=== PATIENT | female | born 2000 | race Caucasian/White ===

== ENCOUNTER 2023-09-19 18:04 | Emergency (ER) | payer BC, SELFPAY ==
[2023-09-19 18:28] VITALS: BP 130/73; PULSE 61; RESP 18; TEMP 36.7; O2SAT 96; BMI 44.8
--- NOTE | 2023-09-19 21:04 | ED.GENADULT ---
HPI - General Adult General Chief complaint: Ear Problems Stated complaint: Ear and Jaw Pain Time Seen by Provider: 09/19/23 20:54 Source: patient, RN notes reviewed and old records reviewed Mode of arrival: ambulatory Limitations: no limitations History of Present Illness HPI narrative: 23 year old female presents for right sided jaw and ear pain. She reports the pain began 2 months ago and would last an hour, and has been on and off since, but is now more severe and lasts up to 4 hours. She states when the pain occurs, she is unable to touch the right side of her face or perform neck ROM without severe pain. She describes the pain as burning and sharp. She reports a history of jaw cracking and pain with opening the mouth wide. 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 She states the pain initially began after cracking her jaw, but has since been occurring more frequently and sporadically. She denies erythema, edema, warmth, fever, or hearing problems. She denies any worsening of pain with chewing or eating. Related Data Previous Rx's Medication Instructions Recorded cyclobenzaprine 5 mg tablet 5 mg PO TID PRN muscle spasm #15 09/19/23 tabs naproxen 250 mg tablet 250 mg PO BID #30 tabs 09/19/23 tramadol 50 mg tablet 50 mg PO TID PRN severe pain 09/19/23 (scale score 7-10) #12 tabs Allergies Allergy/AdvReac Type Severity Reaction Status Date / Time No Known Allergies Allergy Unverified 07/30/20 17:21 Review of Systems Constitutional: Constitutional: Denies chills, Denies fever(s) and Denies headache(s) Eyes: Eyes: Denies change in vision ENT: Reports Normal hearing present, Denies dizziness, Denies ear discharge, Reports otalgia (right sided), Reports facial pain (right sided), Denies headache(s) and Reports other (right sided jaw pain, crepitus) Cardiovascular: Cardiovascular: Denies chest pain Integumentary/Breasts: Skin/Breast: Denies rash Neurologic: Reports Normal hearing present, Denies dizziness and Denies headache(s) PMF Social History Social History Advance Directives: No Advance Directives Information Provided: Yes Physical Exam ED Vital Signs: Vital Signs - 24 hr 09/19/23 18:28 Temperature 98.1 F Pulse Rate 61 Respiratory Rate 18 Blood Pressure 130/73 Pulse Oximetry 96 Oxygen Delivery Method Room Air BMI result Body Mass Index 44.8 Const General: healthy appearing and no acute distress Orientation/consciousness: patient oriented x3 Limitations: no limitations HENMT Other: Full range of motion of the mandible. There is a clunking felt with active range of motion bilaterally at the TMJ Head: Yes normocephalic and Yes atraumatic Ears: hearing grossly normal bilaterally, external ears normal, TM's normal bilaterally, EAC's normal and mastoids normal Face and sinus: Yes sinuses nontender, No erythema and No edema Mouth: Normal oral and palatal mucosa present Teeth and gingiva: dentition normal Throat: Yes posterior oropharynx normal Eyes Conjunctivae: conjunctivae normal Sclerae: sclerae normal Corneas: corneas normal Pupils: Equal, round and reactive pupils present Skin General skin exam: no rashes or lesions noted and elasticity normal Neuro General: patient oriented x3 Cranial nerves: Yes Equal, round and reactive pupils present and Yes Normal hearing present Medical Decision Making Medical Decision Making [facility] Narrative: [age] year female presents for evaluation of right facial pain. Her history is classic for TMJ dysfunction. Currently she is asymptomatic. I discussed avoiding triggers with her. We will discharge the patient with naproxen and cyclobenzaprine for her discomfort and I will also give her a short course of tramadol for severe or breakthrough pain. She reports that she called her PCP but will not be able to follow-up for 2 months. Differential Diagnosis Differential Diagnoses: The differential diagnosis associated with the presentation includes temporomandibular joint disorder otitis media tension headache dental infection mastoiditis Tests considered The following testing was considered but not selected: Considered CT of facial bones, however the patient's history exam is quite classic of TMJ dysfunction Discharge Plan Discharge Clinical Impression: TMJ dysfunction Patient Disposition: Home, Self-Care Instructions: Temporomandibular Disorder (ED) Additional Instructions: Take naproxen twice daily for 10 days Use cyclobenzaprine as needed for muscle spasms Use tramadol for more severe, breakthrough pain This may make you sleepy, did not drink alcohol or drive after taking it Follow-up with your primary doctor as discussed Return for new or worsening symptoms Prescriptions: New naproxen 250 mg tablet 250 mg PO BID Qty: 30 0RF cyclobenzaprine 5 mg tablet 5 mg PO TID PRN (Reason: muscle spasm) Qty: 15 0RF tramadol 50 mg tablet 50 mg PO TID PRN (Reason: severe pain (scale score 7-10)) Qty: 12 0RF
[2023-09-19 21:49] VITALS: BP 150/94; PULSE 72; RESP 18; O2SAT 98
== END 2023-09-19 21:51 | disposition home or self-care (01) ==
PROVIDERS: Emergency Provider Internal Medicine
DX: M26.69 Other specified disorders of temporomandibular joint (principal)
CPT/HCPCS: 99283; 99284

== ENCOUNTER 2024-02-16 11:04 | Outpatient (AMB) | payer BC, SELFPAY ==
--- NOTE | 2024-02-16 11:07 | MHC.PC.OV ---
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 No Known Home Meds Tobacco use date assessed: 02/16/24 Dental Screening Did you have a dental visit in the last 12 months?: No Did you have a dental problem in the last 6 months where you did not have access to dental care?: Yes Was dental information given to patient?: No HPI HPI Comments History of Present Illness Details 24-year-old female with obesity, MDD, ANTONELLA, IBS, TMJ R Here today to [facility] care No medical records No medical care since pediatrics ([facility]). Has never had a pap yet; not sexually active at this time. Chronic ingrown toe nails present for years, affects bilat great toe nails. Has never had any treatment. Lots of pain Became ill during mission trip in [place] 2015, since this time, when she gets sick she reports her sx are worse then before. Extreme sore throat. Lots of travel. Went to [place] for 3 months 03/2023 & was sick for 1 month. Dx with tonsillitis. Gets tonsil stones. States tonsils are chronically red and swollen. She is a isaac so has worries about this. Would like to see a counselor. Has MDD. Wonders about OCD and ADD like sx. HAs lots of GI issues, reports entire life. 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 when returned to school, took 20 min BR breaks. Did see GI in the past around 2017-. Tried some meds. Made her worse or didnt work. Tried gluten free, no relief. Did not try dairy free as she keeps a food diary and does not note any correlation. Reports negative chrons and colitis work up. Dx with IBS. 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 Describes abd pain as labor pains, comes and goes. Has some relief w/ bowel movements. Feels it takes a long time to evacuate completely. Known Cat allergy, wants referral for allergy testing. Worried she has narcolepsy. Has to stimulate self to stay awake by pinching self. Writing bible versus. Right jaw/ear pain in the past; referred to dentist and given naproxen. Doesnt have dental insurance. Went to ED for this pain, DX with TMJ. Given more naproxen, tramadol and cyclobenzaprine. 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 [facility] History (Updated 02/16/24 @ 13:15 by Elvira Mays CMA) H/O oral surgery Family History (Updated 02/16/24 @ 13:22 by Elvira Mays CMA) Mother Mental disorder HTN (hypertension) Diabetes Thyroid disorder Psychiatric disorder Father Asthma Maternal Grandfather HTN (hypertension) Diabetes Other Substance abuse Social History Housing: House Housing Other:: duplex Patient Tobacco Use Status: Current someday Tobacco user Years Smoked: Less then a year, smokes occasionally Second Hand Smoke Exposure: No Substance Use Type: Marijuana service: No Current occupational status: employed Current occupation: [employer] Current occupational exposures/hazards: No Cognitive needs: No Hearing needs: No Vision needs: No Questionnaire PHQ-9 Over the last 2 weeks, how often have you been bothered by any of the following problems? 1. Little interest or pleasure in doing things: several days 2. Feeling down, depressed, or hopeless: several days 3. Trouble falling or staying asleep, or sleeping too much: several days 4. Feeling tired or having little energy: more than half the days 5. Poor appetite or overeating: more than half the days 6. Feeling bad about yourself - or that you are a failure or have let yourself or your family down: several days 7. Trouble concentrating on things, such as reading the newspaper or watching television: not at all 8. Moving or speaking so slowly that other people could have noticed. Or the opposite - being so fidgety or restless that you have been moving around a lot more than usual: not at all 9. Thoughts that you would be better off or of hurting yourself in some way: several days Total score: 9 Depression Screening Interpretation: Positive Depression Screening Follow-up: Existing condition and Community Mental Health Worker F/U Depression Screening Done: Yes 39489 - PHQ-9 Billing: Yes Source: Developed by Drs. Yahir Rico, Zenobia Nicholson, Reed Soria and colleagues, with an educational leonard from [employer]. Thrive Questionnaire Date Thrive assessed: 02/16/24 I am a: Parent/Caregiver What is your living situation today?: I have a place to live, but I am worried about losing it in the future Within the past 12 months, did the food you bought not last and you didn't have the money to get more?: Never true Within the past 12 months, did you worry whether your food would run out before you got money to buy more?: Never true Do you have trouble paying for medicines?: No Do you have trouble getting transportation to medical appointments?: No Do you have trouble paying your heating and electricity bill?: No Do you have trouble taking care of your child, family member or friend?: No Do you have trouble with day-to-day activities such as bathing, preparing meals, shopping, managing finances, etc.?: No Are you currently unemployed and looking for a job?: No Are you interested in more education?: Yes Please select the resources that you would like help with: Housing/Mcc Currently or been in a relationship where the following occur: no concerns reported THRIVE Score: 1 AUDIT C Alcohol Use Questionnaire (AUDIT-C) 1. How often do you have a drink containing alcohol?: Monthly or less 2. How many drinks containing alcohol do you have on a typical day when you are drinking?: 3 or 4 3. How often do you have six or more drinks on one occasion?: Less than monthly Total Score: 3 Score Reviewed/Action Taken: Yes ANTONELLA-7 AMB Questionnaire ANTONELLA-7 Date ANTONELLA - 7 assessed: 02/16/24 Feeling nervous, anxious, or on edge: 3 = Nearly every day Not being able to stop or control worryin = Nearly every day Worrying too much about different things: 3 = Nearly every day Trouble relaxin = Several days Being so restless that it is hard to sit still: 0 = Not at all Becoming easily annoyed or irritable: 1 = Several days Feeling afraid as if something awful might happen: 1 = Several days Total ANTONELLA-7 score (0-4 normal; 5-9 mild; 10-14 moderate; 15-21 severe): 12 Source: Developed by Drs. Yahir Rico, Zenobia Nicholson, Reed Soria and colleagues, with an educational leonard from [employer]. ANTONELLA-7 Assessment Billing ANTONELLA-7 Assessment Tool: ANTONELLA-7 Assessment [id number] Review of Systems Const All systems reviewed & are unremarkable except as noted in HPI and below Physical exam (Primary Care) Vital Signs: Last Vital Signs Temp 97.2 F 02/16/24 11:16 Pulse 65 02/16/24 11:16 Resp 16 02/16/24 11:16 BP 122/78 02/16/24 11:16 Pulse Ox 97 02/16/24 11:16 Oxygen Delivery Method Room Air 02/16/24 11:16 BMI result Body Mass Index 46.4 BMI Assessment/Plan discussion: High BMI High, discussed plan: lifestyle Tobacco/Smoking Status: Tobacco use Status Tobacco use date assessed 02/16/24 02/16/24 11:15 Patient Tobacco Use Status Current someday Tobacco 02/16/24 11:15 Are you ready to quit: No Tobacco cessation counseling provided: Yes Items discussed: Other Relapse Prevention: discussed the importance of a supportive environment, discussed extending NRT, discussed negative mood or depression after quitting, weight gain after smoking is common and discussed dietary, exercise and/or lifestyle changes Number of minutes spent counselin CPT code: Less than 3 minutes PHQ-9: PHQ-9 Score PHQ-9: Total score 9 02/16/24 13:09 Depression Screening Interpretation: Positive Depression Screening Follow-up: Existing condition and Community Mental Health Worker F/U Thrive Assessment: Date of Thrive Assessment Date Thrive assessed 02/16/24 02/16/24 13:09 Currently or been in a relationship where the following occur: no concerns reported Const Other: awake alert NAD PERRLA, EOMI TM intact and clear bilat + displacement of R TMJ w/ jaw opening No trigeminal pain w/ palpation Tonsils grade 1 + uvula midline, manages secretions RRR LS CTAB Abd soft, nontender, normoactive bs x 4 Bilat great toe nails ingrown w/o infection Assessment and Plan Assessment & Plan (1) Cervical cancer screening: Comment: Refer to bindery supervisor for 1st Pap smear and Women's [facility]. Code(s): Z12.4 - Encounter for screening for malignant neoplasm of cervix (2) MDD (major depressive disorder), recurrent episode: Comment: Not currently on medications. Referred to counseling. Code(s): F33.9 - Major depressive disorder, recurrent, unspecified Qualifiers: Major depression episode severity: mild Qualified Code(s): F33.0 - Major depressive disorder, recurrent, mild (3) IBS (irritable bowel syndrome): Comment: Was on medications in the past. Has no idea what they were. She signed a release of information today from her director of outpatient services. Once her records received and unable to review we will talk about treatment. Do not think she needs to see GI at this point. Code(s): K58.9 - Irritable bowel syndrome without diarrhea Qualifiers: Irritable bowel syndrome type: with both diarrhea and constipation Qualified Code(s): K58.2 - Mixed irritable bowel syndrome (4) Allergies: Comment: Known allergy to cats. Wonders if she has other allergies. Requested referral for allergy testing. This referral was placed today. Made aware that she can not have allergy testing done while on an antihistamine. Code(s): T78.40XA - Allergy, unspecified, initial encounter Qualifiers: Encounter type: initial encounter Qualified Code(s): T78.40XA - Allergy, unspecified, initial encounter (5) Persistent disorder of initiating or maintaining wakefulness: Comment: Refer to sleep Medicine for evaluation of treatment of her complaints. Code(s): G47.10 - Hypersomnia, unspecified (6) TMJ arthralgia: Comment: Effect in the right side. Refer to ENT for evaluation and treatment. New rX for baclofen 10mg po BID PRN for pain and Diclofenac ER 50mg BID PRN pain sent to pharmacy. Code(s): M26.629 - Arthralgia of temporomandibular joint, unspecified side Qualifiers: Laterality: right Qualified Code(s): M26.621 - Arthralgia of right temporomandibular joint (7) Morbidly obese: Comment: BMI greater than 46 with major depressive disorder and generalized anxiety disorder. Code(s): E66.01 - Morbid (severe) obesity due to excess calories (8) IGTN (ingrowing toe nail): Comment: Refer to podiatry for evaluation and treatment. Code(s): L60.0 - Ingrowing nail (9) Encounter for screening involving social determinants of health (SDoH): Code(s): Z13.9 - Encounter for screening, unspecified (10) Marijuana use: Code(s): F12.90 - Cannabis use, unspecified, uncomplicated Plan This note is constructed using voice recognition software. While every effort has been made to ensure accuracy in paver installer, still errors may have been included Sometimes, these errors may affect the content or meaning of the given sentence . Total time spent caring for the patient today was 75 minutes. This includes time spent before the visit reviewing the chart, time spent during the visit, and time spent after the visit on documentation Orders: Orders Vitamin D 1,25 dihydroxy Today E66.01 - Morbid (severe) obesity due to excess calories, F33.9 - Major depressive disorder, recurrent, unspecified, G47.10 - Hypersomnia, unspecified, K58.2 - Mixed irritable bowel syndrome, M26.621 - Arthralgia of right temporomandibular joint, T78.40XA - Allergy, unspecified, initial encounter Comprehensive [place]. Panel Fast Today E66.01 - Morbid (severe) obesity due to excess calories, F33.9 - Major depressive disorder, recurrent, unspecified, G47.10 - Hypersomnia, unspecified, K58.2 - Mixed irritable bowel syndrome, M26.621 - Arthralgia of right temporomandibular joint, T78.40XA - Allergy, unspecified, initial encounter Lipid Panel Today E66.01 - Morbid (severe) obesity due to excess calories, F33.9 - Major depressive disorder, recurrent, unspecified, G47.10 - Hypersomnia, unspecified, K58.2 - Mixed irritable bowel syndrome, M26.621 - Arthralgia of right temporomandibular joint, T78.40XA - Allergy, unspecified, initial encounter Vitamin B12 and Folate Today E66.01 - Morbid (severe) obesity due to excess calories, F33.9 - Major depressive disorder, recurrent, unspecified, G47.10 - Hypersomnia, unspecified, K58.2 - Mixed irritable bowel syndrome, M26.621 - Arthralgia of right temporomandibular joint, T78.40XA - Allergy, unspecified, initial encounter IRON PROFILE Today E66.01 - Morbid (severe) obesity due to excess calories, F33.9 - Major depressive disorder, recurrent, unspecified, G47.10 - Hypersomnia, unspecified, K58.2 - Mixed irritable bowel syndrome, M26.621 - Arthralgia of right temporomandibular joint, T78.40XA - Allergy, unspecified, initial encounter Complete Blood Count no Diff Today E66.01 - Morbid (severe) obesity due to excess calories, F33.9 - Major depressive disorder, recurrent, unspecified, G47.10 - Hypersomnia, unspecified, K58.2 - Mixed irritable bowel syndrome, M26.621 - Arthralgia of right temporomandibular joint, T78.40XA - Allergy, unspecified, initial encounter Hemoglobin A1c Today E66.01 - Morbid (severe) obesity due to excess calories, F33.9 - Major depressive disorder, recurrent, unspecified, G47.10 - Hypersomnia, unspecified, K58.2 - Mixed irritable bowel syndrome, M26.621 - Arthralgia of right temporomandibular joint, T78.40XA - Allergy, unspecified, initial encounter Microalbumin, Random (w Creat) Today E66.01 - Morbid (severe) obesity due to excess calories, F33.9 - Major depressive disorder, recurrent, unspecified, G47.10 - Hypersomnia, unspecified, K58.2 - Mixed irritable bowel syndrome, M26.621 - Arthralgia of right temporomandibular joint, T78.40XA - Allergy, unspecified, initial encounter TSH reflex Free T4 Today E66.01 - Morbid (severe) obesity due to excess calories, F33.9 - Major depressive disorder, recurrent, unspecified, G47.10 - Hypersomnia, unspecified, K58.2 - Mixed irritable bowel syndrome, M26.621 - Arthralgia of right temporomandibular joint, T78.40XA - Allergy, unspecified, initial encounter Referrals ACCOUNT EXECUTIVE Referral Z12.4 - Encounter for screening for malignant neoplasm of cervix Counseling Referral F33.9 - Major depressive disorder, recurrent, unspecified, Z12.4 - Encounter for screening for malignant neoplasm of cervix Allergy & Immunology Referral T78.40XA - Allergy, unspecified, initial encounter Sleep Medicine Referral G47.10 - Hypersomnia, unspecified Ear/Nose/Throat Referral J35.1 - Hypertrophy of tonsils, M26.621 - Arthralgia of right temporomandibular joint Podiatry Referral L60.0 - Ingrowing nail Nurse Navigator Referral Z13.9 - Encounter for screening, unspecified Medications: New baclofen USE FOR TMJ PAIN SPARINGLY 10 mg PO BID PRN 20 tabs 0RF muscle spasm diclofenac sodium TAKE W FOOD; AVOID OTHER NSAIDS 50 mg PO Q12H PRN 30 tabs 0RF pain Discontinued naproxen Discontinued Reason: Patient Completed Course 250 mg PO BID 30 tabs 0RF cyclobenzaprine Discontinued Reason: Patient Completed Course 5 mg PO TID PRN 15 tabs 0RF muscle spasm tramadol Discontinued Reason: Patient Completed Course 50 mg PO TID PRN 12 tabs 0RF severe pain (scale score 7-10) Patient Instructions: RTO IN 2 WEEKS TO FU ON LABS AND PLAN OF CARE Smoking Cessation How to Quit There are a lot of ways to quit smoking and many resources to help you. Family members, friends, and co-workers may be supportive or encouraging, but to be successful the desire and commitment to quit must be your own. Most people who have been able to successfully quit smoking made at least one unsuccessful attempt in the past. Try not to view past attempts to quit as failures, but rather as learning experiences. Stopping smoking or using smokeless tobacco is difficult, but anyone can do it. Know the symptoms to expect when you stop. Common symptoms include: ? An intense craving for nicotine ? Anxiety, tension, restlessness, frustration, or impatience ? Difficulty concentrating ? Drowsiness or trouble sleeping, as well as bad dreams and nightmares ? Drowsiness and trouble sleeping ? Headaches ? Increased appetite and weight gain ? Irritability or depression How severe your symptoms are depends on how long you smoked and how many cigarettes you smoked each day. Feel ready to quit? ? First and foremost, set a quit date and quit completely on that day. Before your quit date, you may begin reducing your cigarette use. But remember, there is no safe level of cigarette smoking. ? List the reasons why you want to quit. Include both short- and long-term benefits. ? Identify the times you are most likely to smoke. For example, do you tend to smoke when feeling stressed or down? When out at night with friends? While drinking coffee or alcohol? When bored? While driving? Right after a meal or sex? During a work break? While watching TV or playing cards? When you are with other smokers? ? Let all of your friends, family, and co-workers know of your plan to stop smoking and your quit date. Just being aware that they know what you're going through can be helpful, especially when you are grumpy. ? Get rid of all your cigarettes just before the quit date, and clean out anything that smells like smoke, such as clothes and furniture. Make a plan about what you will do instead of smoking at those times when you are most likely to smoke. ? Be as specific as possible. For example, drink tea instead of coffee -- tea may not trigger the desire for a cigarette. Or, take a walk when you feel stressed. ? Remove ashtrays and cigarettes from the car. Place pretzels or hard candies there instead. Pretend-smoke with a straw. ? Find activities that focus your hands and mind but are not taxing or fattening. Computer games, solitaire, knitting, sewing, and crossword puzzles may help. ? If you normally smoke after eating, find other ways to end a meal. Play a tape or CD, eat a piece of fruit, get up and make a phone call, or take a walk (a good distraction that also escalante calories). Make other changes in your lifestyle. ? Change your daily schedule and habits. Eat at different times or eat several small meals instead of three large ones. Sit in a different chair or even a different room. ? Satisfy your oral habits by eating celery or other low-calorie snack, chewing sugarless gum, or sucking on a cinnamon stick. ? Go to public places and restaurants where smoking is prohibited or restricted. ? Eat regular meals and don't eat too much candy or sweet things. ? Get more exercise. Take walks or ride a bike. Exercise helps relieve the urge to smoke. Set short-term quitting goals and reward yourself when you meet them. ? Every day, put the money you normally spend on cigarettes in a jar. Then buy something pleasurable after a period of time. ? Try not to think about all the days ahead you will need to avoid smoking. Take it one day at a time. ? Even one puff or one cigarette will make your desire for more cigarettes even stronger. However, it is normal to make mistakes. So even if you have one cigarette, you don't need to take the next one. Other tips to help you quit smoking and stick to it: ? Enroll in a smoking cessation program (hospitals, health departments, community centers, and work sites often offer programs). Learn about self-hypnosis or other techniques. ? Ask your health care provider about prescription medications that are safe and appropriate for you. ? Find out about nicotine patches, gum, and sprays. The [place] [employer]'s web site -- www.cancer.org -- is an excellent resource for smokers who are trying to quit, and the [employer] [place] [employer] can help some smokers kick the habit. Above all, don't get discouraged if you aren't able to quit smoking the first time. Nicotine addiction is a hard habit to break. Try something different next time. Develop new strategies, and try again. Many people take several attempts to finally kick the habit. Marijuana: Natural = Safe, Right? Marijuana is readily available to use in many states in the [place]. Understanding the possible risks of use is important to ensure the safety. No matter how you use marijuana (smoke it, eat it, or apply to your skin), it may cause problems with both short term and jail use How marijuana affects your BRAIN: Potential effects from Short Term Use Poor focus, memory and reaction time Difficulty with problem solving Hallucinations, paranoia, anxiety Potential effects from Snf Use Memory problems and trouble learning new things Depression, hallucinations, paranoia, anxiety, worsening PTSD symptoms addiction Brain. It is not safe to drive while on marijuana. It makes it hard to computer publisher distance, concentrate, react quickly to signals and sounds, be alert and coordinated. If alcohol is combined, this risk is even higher! In regular users, some of the effects from intermodal truck driver use may last for days or even weeks after stopping marijuana. How inhaling marijuana affects your LUNGS: Inhaling harmful chemicals Gases Small particles Carcinogens (toxins linked to cancer) Breathing problems similar to tobacco smokers Daily cough with mucus Difficulty breathing Lung infections (bronchitis, pneumonia) Lungs How marijuana affects your HEART: Increases risk of heart attack Within the first hour of smoking Increases heart rate 20?100% increase after smoking Increase lasts up to three hours Changes in heart rhythm Feels like your heart skips a beat, or is fluttering, or beating too fast or too slow Heart Is it SAFE to use marijuana with other medications? A combination that can be concerning is the use of opioids and/or benzodiazepines with marijuana. Opioids + Benzodiazepines + Marijuana: Drowsiness: All three can cause drowsiness. Reaction time: All three can reduce reaction time. Do not drive or operate machinery. Overdose: Opioids and Benzodiazepines can cause reduced breathing and in some cases, breathing can stop and a person can . Marijuana containing higher levels of THC may cause difficulty with thinking and memory and this could result in medication errors where extra doses of opioids, benzodiazepines, or other medications may be taken. What is the harm? Example of Opioids Morphine (MS Contin?, Kourtney?) Oxycodone (Percocet?, OxyContin?) Hydrocodone (Vicodin?, Trimble?) Fentanyl (Duragesic?) Methadone Heroin Example of Benzodiazepines Lorazepam (Ativan?) Diazepam (Valium?) Alprazolam (Xanax?) Clonazepam (Klonopin?) If you have specific questions about the safety of using marijuana with other medications, please contact your provider or pharmacist. Some marijuana users can become addicted! You can have problems with marijuana withdrawal. You may have withdrawal symptoms the day after you stop using. These can get worse 2 to 3 days after using and can take 1 to 2 weeks or longer to go away. Recovery and Treatment Contact your provider or health care team if you are having concerns about your marijuana use or to learn more about available treatment services. The marijuana plant is not an FDA-approved medicine: The U.S. Food and Drug Administration (FDA) has not approved the marijuana plant as a medication due to lack of studies on the risks and benefits. Marijuana contains over 100 chemical substances known as cannabinoids. Some of these, like tetrahydrocannabinol (THC), have mind altering effects and can be intoxicating. Cannabidiol (CBD), another cannabinoid, does not cause the same ?high? users of THC experience. THC has been studied for the treatment of several conditions, including nausea and increasing appetite. CBD is similarly being studied for a number of conditions, including childhood epilepsy and inflammation. What is different between the marijuana product I get from the marijuana shop and a prescription from the pharmacy? The right dose of any medicine is important. A specific dose of THC is approved to treat nausea, but high doses of THC may cause vomiting. The ingredients in a medicine must be measured and stay the same from one dose to the next. The marijuana plant contains unknown ingredients that change from plant to plant. This makes it hard to control the ?dose? of marijuana needed to treat a condition and use it in the same way we use other medicines. Future studies are ongoing to establish the role of the marijuana plant and the cannabinoids found in the plant for treatment of medical conditions. If you have questions about using a marijuana product for a medical condition, please discuss this with your medical provider to determine the most appropriate treatment for you. [place] Providers are not able to prescribe marijuana products. Information in this document was compiled by the [facility] of Excellence in Substance Abuse treatment and Education ([facility] [place] It contains information from factsheets by the National [place] on Drug Abuse (www.drugabuse.gov) and presentation by Diamond Moore, Diamond Blanchard, & Bria Huff (2010) entitled ?What providers need to know about cannabis use in Veterans with mental health conditions: Research, policy, practice,? and an additional reference: Glory Pa M.D., Nain Gutierrez, Ph.D., Anthony Villegas M.D., and Sunitha Flanagan, Ph.D: Adverse Effects of Marijuana. N Engl J Med 2014; 370:9032-9671, April 17, 2014 DOI: 10.1056/CIVGkr8669230. [place] [facility] [employer] Coding Level of Care Code New Pt Level 5 (79135) Diagnoses Cervical cancer screening Z12.4 Mild episode of recurrent major depressive disorder F33.0 Major depression episode severity: mild Irritable bowel syndrome with both constipation and diarrhea K58.2 Irritable bowel syndrome type: with both diarrhea and constipation Allergy, initial encounter T78.40XA Encounter type: initial encounter Persistent disorder of initiating or maintaining wakefulness G47.10 Arthralgia of right temporomandibular joint M26.621 Laterality: right Morbidly obese E66.01 IGTN (ingrowing toe nail) L60.0 Encounter for screening involving social determinants of health (SDoH) Z13.9 Marijuana use F12.90 Additional Codes ANTONELLA-7 Assessment Billing - ANTONELLA-7 Assessment Tool: ANTONELLA-7 Assessment [id number] ([id number])
[2024-02-16 11:16] VITALS: BP 122/78; PULSE 65; RESP 16; TEMP 36.2; O2SAT 97; BMI 46.4
== END 2024-02-16 12:44 | disposition home or self-care (01) ==
PROVIDERS: PCP Nurse Practitioner Family; Visit Provider Nurse Practitioner Family
DX: K58.2 Mixed irritable bowel syndrome (principal); F33.0 Major depressive disorder, recurrent, mild; E66.01 Morbid (severe) obesity due to excess calories; Z68.42 Body mass index [BMI] 45.0-49.9, adult; T78.40XA Allergy, unspecified, initial encounter; G47.10 Hypersomnia, unspecified; M26.621 Arthralgia of right temporomandibular joint; L60.0 Ingrowing nail; F12.90 Cannabis use, unspecified, uncomplicated
CPT/HCPCS: 99205

== ENCOUNTER 2024-02-16 12:07 | Outpatient (REF) | payer BC, SELFPAY ==
[2024-02-16 14:36] LABS: Hematocrit 38.5 % (37.0-47.0); Hemoglobin 12.9 g/dl (12.0-16.0); Mean Corpuscular HGB Conc 33.5 g/dl (31.0-35.0); Mean Corpuscular Hemoglobin 27.5 pg (27.0-33.0); Mean Corpuscular Volume 82.1 fL (80.0-98.0); Mean Platelet Volume 9.8 fL (9.4-12.3); Platelet Count 389 X10*3/uL (160-400); Red Blood Count 4.69 X10*6/uL (4.20-5.50); Red Cell Distribution Width 12.9 % (11.0-16.0); White Blood Count 7.5 X10*3/uL (4.8-10.8)
[2024-02-16 14:44] LABS: Estimated Average Glucose 126 mg/dL
[2024-02-16 15:25] LABS: Alanine Aminotransferase 26 U/L (0-31); Albumin Level 4.1 g/dL (3.5-5.0); Alkaline Phosphatase 63 U/L (39-117); Anion Gap 13 (12-20); Aspartate Amino Transferase 15 U/L (5-31); Bilirubin Total 0.4 mg/dL (0.0-1.0); Blood Urea Nitrogen 9 mg/dL (9-16); Calcium 9.5 mg/dL (8.4-10.2); Carbon Dioxide 26 mmol/L (22-29); Chloride 106 mmol/L (96-108); Cholesterol 181 mg/dL (<200); Estimated Glomerular Filt Rate > 60; Glucose Fasting 104 mg/dL (60-99); HDL Cholesterol 39 mg/dL (>40); Iron 74 mcg/dL (30-160); LDL Cholesterol Calculated 88 mg/dL (<100); Percent Iron Saturation 24 % (15-50); Potassium 4.5 mmol/L (3.3-5.1); Sodium 140 mmol/L (135-145); Total Iron Binding Capacity 306 mcg/dL (228-428); Total Protein 7.4 g/dL (6.5-8.0); Triglycerides 270 mg/dL (<150); Unsaturated Iron Binding 232 ug/dL
[2024-02-16 15:28] LABS: TSH reflex Free T4 0.97 uIU/mL (0.32-4.0)
[2024-02-16 15:36] LABS: Creatinine Urine 128.28 mg/dL; Microalbum/Creatinine Ratio Ur 17.9 ug/mg cr (<30)
[2024-02-16 15:38] LABS: Folate 8.9 ng/mL (> or = 4.0); Vitamin B12 314 pg/mL (200-900)
[2024-02-21 15:38] LABS: VITAMIN D (1,25 OH) D3 26 pg/mL; Vit D (1,25-Dihydroxy) Total 26 pg/mL (18-72); Vitamin D (1,25 OH) D2 <8 pg/mL
== END 2024-02-16 12:08 | disposition home or self-care (01) ==
LOC: HO.WFDLDS 12:07
PROVIDERS: Visit Provider Nurse Practitioner Family
DX: M26.621 Arthralgia of right temporomandibular joint (principal); G47.10 Hypersomnia, unspecified; T78.40XA Allergy, unspecified, initial encounter; K58.2 Mixed irritable bowel syndrome; F33.9 Major depressive disorder, recurrent, unspecified; E66.01 Morbid (severe) obesity due to excess calories
CPT/HCPCS: 36415; 80053; 80061; 82043; 82570; 82607; 82652; 82746; 83036; 83540; 84443; 85027

== ENCOUNTER 2024-04-17 15:29 | Outpatient (AMB) | payer OTHER, SELFPAY ==
--- NOTE | 2024-04-17 15:35 | MHC.PC.OV ---
Vital Signs 04/17/24 15:41 Height 5 ft 8 in Weight 309 lb 2 oz BMI 47.0 Blood Pressure Location Rt brachial Position Sitting Respiration 14 Pulse 62 Pulse Source Pulse Oximeter Temp 98 F Temp Source Oral Pulse Oximetry (%) 96 Oxygen Delivery Method Room Air Intake Visit Reasons: fu labs, referrals Intake Note: F/U on labs. Is last menstrual period known: No Allergies No Known Allergies Allergy (Verified 04/17/24 15:36) Medication List - Last Reconciled 04/17/24 by Mayra Luis, [facility]- baclofen 10 mg PO BID PRN diclofenac sodium 50 mg PO Q12H PRN Tobacco use date assessed: 02/16/24 Dental Screening Dental Screen Date: 04/17/24 Did you have a dental visit in the last 12 months?: No Did you have a dental problem in the last 6 months where you did not have access to dental care?: No Was dental information given to patient?: Yes HPI HPI Comments History of Present Illness Details 24-year-old female with obesity, MDD, ANTONELLA, IBS, TMJ R , prediabetes, metabolic syndrome Here today to fu on chronic conditions and referrals Has been busy scheduling all of her referrals from last visit However has had insurance change so may need new referrals Has not seen any specialists since last visit no longer needs podiarty referral as had in home foot care provided to remedy the ingrown nails with + effect. this referal was cx today. I have advised her to call her insurance appt directly and see who they cover and let me know if i need to update referrals. No TMJ flair since last visit. Edu provided on use of meds RXd at last visit. Rescue not maintenance. Cont to have IBS like sx. Was on hyoscamine 2017. Discussed trialing Bentyl 10mg. Advised to take BID and titrate to effect, max 4/day. Let me know how this is or isnt working. Below labs reviewed with her today: Labs from 02/16/2024 show normal CBC, normal electrolytes and renal function, impaired fasting glucose of 104, with a hemoglobin A1c of 6.0%, normal iron, normal LFTs, elevated triglycerides at 270, normal cholesterol 181, normal LDL at 88, HDL low at 39, normal B12, normal TSH, normal urine microalbumin creatinine ratio, vitamin-D [facility] Medical History (Updated 04/17/24 @ 16:57 by Mayra Luis, [facility]) IGTN (ingrowing toe nail) Surgical History (Updated 02/16/24 @ 13:15 by Elvira Mays CMA) H/O oral surgery Family History (Updated 02/16/24 @ 13:22 by Elvira Mays CMA) Mother Mental disorder HTN (hypertension) Diabetes Thyroid disorder Psychiatric disorder Father Asthma Maternal Grandfather HTN (hypertension) Diabetes Other Substance abuse Social History (Updated 02/16/24 @ 13:16 by Elvira Mays CMA) Housing: House Housing Other:: duplex Patient Tobacco Use Status: Current someday Tobacco user Years Smoked: Less then a year, smokes occasionally e-Cigarette/Vaping Use: Never Used Second Hand Smoke Exposure: No Substance Use Type: Marijuana service: No Current occupational status: employed Current occupation: [email or web address] Current occupational exposures/hazards: No Cognitive needs: No Hearing needs: No Vision needs: No Questionnaire Thrive Questionnaire Date Thrive assessed: 02/16/24 AUDIT C Alcohol Use Questionnaire (AUDIT-C) 1. How often do you have a drink containing alcohol?: 2-4 times a month 2. How many drinks containing alcohol do you have on a typical day when you are drinking?: 1 or 2 3. How often do you have six or more drinks on one occasion?: Less than monthly Total Score: 3 Score Reviewed/Action Taken: Yes ANTONELLA-7 AMB Questionnaire ANTONELLA-7 Date ANTONELLA - 7 assessed: 02/16/24 Source: Developed by Drs. Yahir Rico, Zenobia Nicholson, Reed Soria and colleagues, with an educational leonard from [employer]. ACT Questionnaire In the past 4 weeks, how much of the time did your asthma keep you from getting as much done at work, school or at home?: A little of the time During the past 4 weeks, how often have you had shortness of breath?: Not at all During the past 4 weeks, how often did your asthma symptoms wake you up at night or earlier than usual in the morning?: Not at all During the past 4 weeks, how often have you had to use your rescue inhaler or nebulizer medication?: 1-2 times a week How would you rate your asthma control during the past 4 weeks?: Well controlled ACT Interpretation: Negative Score: 20 Review of Systems Const All systems reviewed & are unremarkable except as noted in HPI and below Physical exam (Primary Care) Vital Signs: Last Vital Signs Temp 98 F 04/17/24 15:41 Pulse 62 04/17/24 15:41 Resp 14 04/17/24 15:41 Pulse Ox 96 04/17/24 15:41 Oxygen Delivery Method Room Air 04/17/24 15:41 BMI result Body Mass Index 47.0 Tobacco/Smoking Status: Tobacco use Status Tobacco use date assessed 02/16/24 04/17/24 15:44 Patient Tobacco Use Status Current someday Tobacco 04/17/24 15:44 e-Cigarette/Vaping Use Never Used 04/17/24 15:44 Thrive Assessment: Date of Thrive Assessment Date Thrive assessed 02/16/24 04/17/24 15:44 Const Other: awake alert oriented MMM RRR LS CTAB Assessment and Plan Assessment & Plan (1) Metabolic syndrome: Code(s): E88.810 - Metabolic syndrome (2) IBS (irritable bowel syndrome): Code(s): K58.9 - Irritable bowel syndrome without diarrhea Qualifiers: Irritable bowel syndrome type: with both diarrhea and constipation Qualified Code(s): K58.2 - Mixed irritable bowel syndrome Plan This note is constructed using voice recognition software. While every effort has been made to ensure accuracy in environmental research scientist, still errors may have been included Sometimes, these errors may affect the content or meaning of the given sentence . Total time spent caring for the patient today was 60 minutes. This includes time spent before the visit reviewing the chart, time spent during the visit, and time spent after the visit on documentation Orders: Orders Hemoglobin A1c 09/09/24 E88.810 - Metabolic syndrome Lipid Panel Today E88.810 - Metabolic syndrome Liver Panel Today E88.810 - Metabolic syndrome Referrals Fraud Investigator Nutrition Referral E88.810 - Metabolic syndrome Medications: New dicyclomine 10 mg PO QID PRN 120 caps 1RF abdominal pain albuterol sulfate 90 mcg/actuation 2 inhalations inhalation Q6H PRN 1 ea 0RF shortness of breath or wheezing Patient Instructions: I have advised her to call her insurance appt directly and see who they cover and let me know if i need to update referrals. No TMJ flair since last visit. Edu provided on use of meds RXd at last visit. Rescue not maintenance. Cont to have IBS like sx. Was on hyoscamine 2017. Discussed trialing Bentyl 10mg. Advised to take BID and titrate to effect, max 4/day. Let me know how this is or isnt working. Referred to Nutrition to help with metabolic syndrome. Exercise 30 min daily. RTO end of August repeat FASTING labs done 1 week before. As always if you need me sooner, please come in. Coding Level of Care Code Est Pt Level 5 (49242) Diagnoses Metabolic syndrome E88.810 Irritable bowel syndrome with both constipation and diarrhea K58.2 Irritable bowel syndrome type: with both diarrhea and constipation
[2024-04-17 15:41] VITALS: PULSE 62; RESP 14; TEMP 36.6; O2SAT 96; BMI 47.0
== END 2024-04-17 16:24 | disposition home or self-care (01) ==
PROVIDERS: PCP Nurse Practitioner Family; Visit Provider Nurse Practitioner Family
DX: E88.810 Metabolic syndrome (principal); K58.2 Mixed irritable bowel syndrome
CPT/HCPCS: 99215

== ENCOUNTER 2024-06-11 15:02 | Outpatient (REF) | payer OTHER, SELFPAY ==
[2024-06-12 06:04] LABS: CT PCR NOT DETECTED (Not Detect.); NG PCR NOT DETECTED (Not Detect.)
[2024-06-12 08:56] LABS: Bacterial Vaginosis PCR POSITIVE (Negative); Candida Group PCR DETECTED (Not Detect); Candida glab krusei PCR NOT DETECTED (Not Detect); Trichomonas vaginalis PCR NOT DETECTED (Not Detect)
== END 2024-06-11 15:03 | disposition home or self-care (01) ==
LOC: HO.LAB 15:02
PROVIDERS: PCP Nurse Practitioner Family; Visit Provider Advanced Practice Midwife
DX: N89.8 Other specified noninflammatory disorders of vagina (principal); E66.01 Morbid (severe) obesity due to excess calories; E88.810 Metabolic syndrome; B37.31 Acute candidiasis of vulva and vagina; Z87.42 Personal history of other diseases of the female genital tract
CPT/HCPCS: 0352U; 87491; 87591; 99385

== ENCOUNTER 2024-06-11 15:02 | Outpatient (AMB) | payer OTHER, SELFPAY ==
--- NOTE | 2024-06-11 15:25 | A.OFFVIS_ITS ---
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 [employer]semblies [employer] Installations Required: No Information Interpreted: clinical only Pharmaceutical Representative: Pharmaceutical Representative Present Allergies No Known Allergies Allergy (Verified 06/11/24 15:26) Medication List - Last Reconciled 06/11/24 by Tiffany Kelly CNM albuterol sulfate 90 mcg/actuation 2 inhalations inhalation Q6H PRN baclofen 10 mg PO BID PRN diclofenac sodium 50 mg PO Q12H PRN dicyclomine 10 mg PO QID PRN Is last menstrual period known: No ( irregular menses) HPI HPI New patient Annual: Details: 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 She did not have the HPV vaccine when she was young her parents declined it. 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 and does the it her and is active currently with 2 different plays in [employer]. She has never had Pap smear and is very anxious about it. She also has a history of very irregular periods and sometimes has gone up to 6 months without a. Normally it is more like 4 to 8 times a year she will get a period but it is pretty random when it comes. I can last from 5-10 days. She recently was told that she had progressed from pre prediabetic to prediabetic and also that her cholesterol is off. Because of her busy work schedule she does not really have time to do meal prep or even cook at home and exercise that helps weight loss does not get to happen. She has been talking with her primary care provider about ways to address these issues and we continued this discussion today as well. PFSH Medical History IGTN (ingrowing toe nail) Surgical History H/O oral surgery Family History Mother Mental disorder HTN (hypertension) Diabetes Thyroid disorder Psychiatric disorder Father Asthma Maternal Grandfather HTN (hypertension) Diabetes Other Substance abuse Social History Housing: House Housing Other:: duplex Patient Tobacco Use Status: Current someday Tobacco user Years Smoked: Less then a year, smokes occasionally e-Cigarette/Vaping Use: Never Used Second Hand Smoke Exposure: No Substance Use Type: Marijuana service: No Current occupational status: employed Current occupation: [employer] Current occupational exposures/hazards: No Cognitive needs: No Hearing needs: No Vision needs: No Female Reproductive History Menstrual Age of Menarche: 12 Duration of menses: 8-10 days control method: none History of abnormal pap smear: No (no previous pap) Physical Exam Vital Signs: Last Vital Signs BP 118/78 06/11/24 15:26 BMI result Body Mass Index 45.5 Const Other: Adipose tissue. patient is back is badly sunburned from being at beach on Monday. General: healthy appearing, comfortable, no acute distress, well developed and alert Nutritional Appearance: average body habitus Orientation/consciousness: patient oriented x3 Limitations: no limitations HEENT Head: Yes normocephalic Neck Neck: Yes normal visual inspection Chest Chest palpation & inspection: normal inspection of the chest Breast/axilla inspection: normal inspection of the breasts and normal inspection of the axillae Breast/axilla palpation: normal palpation of the breasts and normal palpation of the axillae Resp Effort & Inspection: normal respiratory effort GI Inspection: Yes normal to inspection, No Abdominal wall edema and No distended Palpation (GI): Soft to palpation and nontender Other: First pelvic exam she is virginal. was not able to tolerate full placement of the Renetta speculum. Vagina was pink and moist there was some redness at the introitus possibly consistent with mild yeast. Cervix only briefly visualized, but not fully enough for Pap. External Female Exam: normal external appearance and normal appearance of the urethra Speculum Exam - Vagina: normal appearance of the vagina and normal vaginal discharge Bimanual Exam- Adnexa, other: normal adnexae, no masses, normal and No adnexal tenderness Neuro General: patient oriented x3 Results Reviewed Results Reviewed: I reviewed with her labs that she had done via her primary care provider. Assessment & Plan Assessment & Plan (1) Cervical cancer screening: Comment: Refer to division supervisor for 1st Pap smear and Women's Health.; attempted 06/11/24, rec HPV vaccine, reattempt pap when ready, Code(s): Z12.4 - Encounter for screening for malignant neoplasm of cervix Category: Medical (2) Morbidly obese: Comment: BMI greater than 46 with major depressive disorder and generalized anxiety disorder. Code(s): E66.01 - Morbid (severe) obesity due to excess calories Category: Medical (3) Metabolic syndrome: Comment: addressed also in division supervisor visit Code(s): E88.810 - Metabolic syndrome Category: Medical (4) History of irregular menstrual bleeding: Code(s): Z87.42 - Personal history of other diseases of the female genital tract Category: Medical (5) Yeast infection involving the vagina and surrounding area: Comment: teaching done, rx monistat for prn use Code(s): B37.31 - Acute candidiasis of vulva and vagina Category: Medical Plan Lengthy visit covering many topics today overall discussed the interplay between weight and metabolic changes and pre diabetes and cholesterol as well as the elevated hormones of estrogen and testosterone and there symptoms discussed her periods of amenorrhea and irregular menses and that sometimes they can be heavy and discussed control pills which she had previously discussed with her dental technician had considered and is now considering do ever periods come more regular because it has been about 2 4 months since her last. I offered her a course of Provera for 10 days to bring on her. She also has IBS and has a hard time telling what her symptoms are when she is going to get a period or has a period. Because of the IBS symptoms discussed that there can be a interplay between these symptoms especially when menses come on because of the interplay of the hormones and there at effect smooth muscle in both the intestines and the uterus affecting both peristalsis and cramping. I am prescribing Provera for her to take for 10 days and to expect a heavy. Some days after she stops it and control pills for her to start on day 3-4 of the period that comes either naturally or after stopping Provera,. I am prescribing Monistat for her to use p.r.n. for vaginal itching as most likely it is yeast which is promoted by the elevated blood sugars as well as normal activities although I recommend cotton and loose clothing. Also spent some time discussing possible suggestions for how to sneak in some determined exercise that is aerobic and purposeful into her day either a short walk that is brisk in the morning or doing some aerobic exercise to a video or something else in her room. Also discussed spending some time doing meal prep and and avoiding eating out and encouraging more protein and vegetables rather than carbs. Discussed that this is an excellent time her life to devote this time and energy to getting healthier. Also discussed skin care for her sunburn (prevention) and use of a 30-60 SPF sunblock cream such as copper tone and applying it before she goes out and then re-applying it as needed. It did not appear that the Provera or OCPs would interact majorly with her other medications that she was concerned about. Since depression is in the computer listed for her already she says on paper we did discuss the possible interaction hormonal treatments and depression and she will pay attention to that. Also discussed where to buy Monistat or [id number]-aeq-[id number] equivalents cheaper if it is too expensive at her pharmacy consider trying [facility]. Places like [facility] or [facility] often have sunscreen at reduced rates as well so she can have enough to prevent a problem in the future. She was not able to tolerate opening the speculum to visualize her cervix completely so Pap smear was not done at this visit however she is somewhat low risk with only having had skin contact, so I recommend investigating getting the HPV vaccine in her local pharmacy and returning for the Pap smear whenever she feels she is ready and if it is next year that would be okay. In the meantime I am also ordering a pelvic ultrasound to assess for thickened endometrial lining and we will review that ultrasound and review how she is doing on the control pills and how her periods are in about 3 months after the ultrasound is done. She will also be following up with her primary care provider and getting more blood work done in the near future. Orders: Orders CT NG by PCR Today N89.8 - Other specified noninflammatory disorders of vagina Bacterial Vaginosis Panel Today N89.8 - Other specified noninflammatory disorders of vagina US pelvic and transvaginal Today B37.31 - Acute candidiasis of vulva and vagina, E66.01 - Morbid (severe) obesity due to excess calories, E88.810 - Metabolic syndrome, Z12.4 - Encounter for screening for malignant neoplasm of cervix, Z87.42 - Personal history of other diseases of the female genital tract Medications: New desog-e.estradiol/e.estradiol 0.15-0.02 mgx21 /0.01 mg x 5 start with menses 1 tab PO DAILY 84 tabs 4RF medroxyprogesterone (Provera) 10 mg PO DAILY 10 tabs 0RF miconazole nitrate 2% (Miconazole-7) 1 appful vaginal BEDTIME 7 days 45 grams 3RF Coding Level of Care Code New Pt Prev Care 18-39yr(84007 Diagnoses Cervical cancer screening Z12.4 Morbidly obese E66.01 Metabolic syndrome E88.810 History of irregular menstrual bleeding Z87.42 Yeast infection involving the vagina and surrounding area B37.31
[2024-06-11 15:26] VITALS: BP 118/78; BMI 45.5
== END 2024-06-11 15:57 | disposition home or self-care (01) ==
LOC: HO.HWSM 15:02
PROVIDERS: PCP Nurse Practitioner Family; Visit Provider Advanced Practice Midwife
DX: Z01.419 Encounter for gynecological examination (general) (routine) without abnormal findings (principal); E66.01 Morbid (severe) obesity due to excess calories; E88.810 Metabolic syndrome; Z87.42 Personal history of other diseases of the female genital tract; B37.31 Acute candidiasis of vulva and vagina
CPT/HCPCS: 99385

== ENCOUNTER 2024-06-18 15:08 | Outpatient (REF) | payer OTHER, SELFPAY ==
--- NOTE | ~2024-06-18 | US_ITS ---
EXAMINATION: US PELVIS CLINICAL INFORMATION: Irregular menses, morbid obesity, unknown last menstrual period. COMPARISON: None available. TECHNIQUE: Ultrasound of the pelvis is performed using both transabdominal and transvaginal transducers along with Doppler. Patient declined transvaginal ultrasound images. Limited visualization due to bowel gas and body habitus. FINDINGS: The uterus is anteverted and measures 7.4 x 2.9 x 4.0 cm. Endometrial thickness is 7 mm. No significant free fluid. Right ovary measures 2.5 x 1.4 x 1.9 cm, volume 3.5 mL. Left ovary measures 2.0 x 1.2 x 1.8 cm, volume 2.3 mL. Bilateral ovaries are grossly unremarkable, although visualization is limited due to bowel gas. No significant free fluid. US/US pelvic complete IMPRESSION: 1. Endometrial thickness is 7 mm. 2. Bilateral ovaries are grossly unremarkable, although visualization is limited due to bowel gas. 3. No significant free fluid. 4. Patient declined transvaginal ultrasound images. Limited visualization due to bowel gas and body habitus.
== END 2024-06-18 15:09 | disposition home or self-care (01) ==
LOC: HO.US 15:08
PROVIDERS: PCP Nurse Practitioner Family; Visit Provider Advanced Practice Midwife
DX: E66.01 Morbid (severe) obesity due to excess calories (principal); E88.810 Metabolic syndrome; Z87.42 Personal history of other diseases of the female genital tract
CPT/HCPCS: 76856

== ENCOUNTER 2024-07-28 13:45 | Emergency (ER) | payer OTHER, SELFPAY ==
--- NOTE | 2024-07-28 13:53 | ED_ITS ---
HPI - Headache General Chief Complaint: Upper Respiratory Symptoms Stated Complaint: headaches-2days Time Seen by Provider: 07/28/24 18:59 Source: patient and family (Father) Mode of arrival: ambulatory Limitations: no limitations History of Present Illness ED Provider: Dr. Joshua Arriaga HPI Narrative: 24-year-old female with a history TMJ arthralgia, irritable bowel syndrome, depression who presents emergency department for evaluation of viral-like illness for 3 days. Patient states that she has had a cough which is persistent but nonproductive. She has had a sore throat, fever, body aches. She was hot and cold chills. She states that over the last 2 days she has developed a pulsating headache on the left side of her head and a pressure-like headache in her occipital area of her head. She states that the headache can be moderate to severe in intensity. Patient states that she was also had persistent nausea with no vomiting. She has had 2-3 episodes of loose diarrheal stool per day. She has been able to drink fluid to stay hydrated. Related Data Previous Rx's ?Medication ?Instructions ?Recorded baclofen 10 mg tablet 10 mg PO BID PRN muscle spasm #20 02/16/24 tabs diclofenac sodium 50 mg 50 mg PO Q12H PRN pain #30 tabs 02/16/24 tablet,delayed release albuterol sulfate 90 mcg/actuation 2 inh inhalation Q6H PRN shortness 04/17/24 breath activated powder inhaler of breath or wheezing #1 ea dicyclomine 10 mg capsule 10 mg PO QID PRN abdominal pain 04/17/24 #120 caps desogestrel-e.estradiol 0.15 1 tab PO DAILY #84 tabs 06/11/24 mg-0.02 mg(21)/e.estrad 0.01 mg(5) tablet medroxyprogesterone 10 mg tablet 10 mg PO DAILY #10 tabs 06/11/24 (Provera) miconazole nitrate 2 % vaginal 1 appful vaginal BEDTIME 7 days 06/11/24 cream (Miconazole-7) #45 grams metoclopramide HCl 10 mg tablet 10 mg PO Q6H PRN nausea and 07/28/24 (Reglan) vomiting #14 tabs Allergies Allergy/AdvReac Type Severity Reaction Status Date / Time No Known Allergies Allergy Verified 07/28/24 13:57 Review of Systems Review of Systems: Yes all other systems are reviewed and are negative [facility] Past Medical History Medical History IGTN (ingrowing toe nail) Surgical History H/O oral surgery Family History Family History Mother Mental disorder HTN (hypertension) Diabetes Thyroid disorder Psychiatric disorder Father Asthma Maternal Grandfather HTN (hypertension) Diabetes Other Substance abuse Social History Social History Housing: House Housing Other:: duplex Alcohol intake: current Alcohol intake frequency: holidays/special occasions only Patient Tobacco Use Status: Current someday Tobacco user Years Smoked: Less then a year, smokes occasionally Smoked in Last 30 Days: No e-Cigarette/Vaping Use: Never Used Second Hand Smoke Exposure: No Use of substances other than those prescribed or required for medical reasons: Yes Substance Use Type: Marijuana Substance Use Frequency: Weekly Last Used Substance: Weeks (ago) Advance Directives: No Advance Directives Information Provided: No Do you have a plan to hurt others: No Plan Patient : No service: No Current occupational status: employed Current occupation: [employer] Current occupational exposures/hazards: No Cognitive needs: No Hearing needs: No Vision needs: No Physical Exam Vital Signs: Vital Signs: Last Vital Signs Temp 99.8 F 07/28/24 13:55 Pulse 92 07/28/24 13:55 Resp 16 07/28/24 13:55 BP 130/79 07/28/24 13:55 Pulse Ox 95 07/28/24 13:55 O2 Del Method Room Air 07/28/24 13:55 BMI result Body Mass Index 45.0 Vital signs were normal Exam: General: Awake, in [id number] distress secondary to her headache Head: Normocephalic, atraumatic, no temporal artery tenderness, tenderness with palpation of the occipital region of her head and neck EENT: PERRL, Lids normal, sclera normal, conjunctiva normal, nose normal , ears normal, throat without erythema or exudates Neck: Supple, no adenopathy Lung: breath sounds symmetric, no wheezing, rales or rhonchi Chest: symmetric movement, nontender Heart: regular rate and rhythm, normal S1, S2 no murmurs or rubs Abdomen: soft, non-tender, nondistended, normal bowel sounds Back: no vertebral tenderness, no CVAT Extremities: no deformities, moves all extremities symmetrically Neuro: Awake, alert, oriented, normal speech, cranial nerves intact, moves all extremities symmetrically Psych: Pleasant, cooperative Course Course Course Narrative: This is an RME performed by Sharon Smith [employer]: Additional HPI, ROS, PE not included below will be deferred to primary provider. Patient is a 24-year-old female who presents to the department for evaluation of a headache for the past 2 days. Taking Tylenol without much improvement, has not taken ibuprofen reporting it never works for her. She also is experiencing a dry cough for she has been taking Mucinex without much improvement. Headache is exacerbated during episodes of coughing. Tactile fevers. Body aches. Symptom onset 4 days ago. Did a home COVID test yesterday which was negative. Denies possibility for . Plan: Viral panel, Medications Administered Discontinued Medications Generic Name Dose Route Start Last Admin Trade Name Freq PRN Reason Stop Dose Admin Acetaminophen 975 mg 07/28/24 19:17 07/28/24 19:30 Acetaminophen 325 Mg Tablet PO 07/28/24 19:18 975 mg ONCE STA Administration Aspirin 325 mg 07/28/24 19:17 07/28/24 19:30 Aspirin 325 Mg Tablet PO 07/28/24 19:18 325 mg ONCE ONE Administration Diphenhydramine HCl 50 mg 07/28/24 19:17 07/28/24 19:30 Diphenhydramine Hcl 25 Mg Capsule PO 07/28/24 19:18 50 mg ONCE ONE Administration Metoclopramide HCl 10 mg 07/28/24 19:17 07/28/24 19:30 Metoclopramide Hcl 10 Mg Tablet PO 07/28/24 19:18 10 mg ONCE STA Administration Medical Decision Making Medical Decision Making [facility] Narrative: 24-year-old female with a history TMJ arthralgia, irritable bowel syndrome, depression who presents emergency department for evaluation of viral-like illness for 3 days with symptoms including fever, chills, nausea with no vomiting, myalgias, arthralgias, diarrhea, headaches and nonproductive cough. Patient has been able to drink fluids. Vital signs were unremarkable. Physical examination was unremarkable. Differential diagnosis: ?Includes but is not limited to viral syndrome, bronchitis, pneumonia, volume depletion, dehydration, COVID-19, RSV influenza Following evaluation was ordered: COVID-19, RSV, influenza Patient was initially treated with the following: Acetaminophen 975 mg orally, aspirin 325 mg orally, Reglan 10 mg orally, Benadryl 50 mg orally Course: 21:45 The patient's COVID-19, RSV and influenza tests were negative. The patient's presentation is consistent with a viral syndrome and I did discuss this with her. Patient got minimal improvement of her headache with the above treatment but was able to sleep. The patient was given morphine 15 mg orally and then discharged home. I did instruct her to take the following 3 medications together every as needed for headache: Reglan 10 mg, Benadryl 50 mg, Excedrin migraine 2 tablets. She was given printed and verbal instructions and discharged home. Admission/Observation Consideration of admission/observation: Escalation of care including admission/observation considered (Yes) Lab Data MDM Lab Attestation statement: I reviewed the patient's lab results. My interpretation patient's laboratory evaluation as follows: COVID-19, influenza and RSV were negative Labs: Lab Results 07/28/24 Range/Units 14:41 Influenza Type A (PCR) NEGATIVE (Negative) Influenza Type B (PCR) NEGATIVE (Negative) RSV RNA Qual (PCR) NEGATIVE (Negative) SARS-CoV-2 RNA (RT-PCR) NEGATIVE (Negative) Prescription Management I considered prescription management with: Other (Anti migraine/antiemetic medication, Reglan) Discharge Plan Discharge Clinical Impression: Viral syndrome, Headache Patient Disposition: Home, Self-Care Additional Instructions: Your COVID-19, influenza and RSV tests were negative Your symptoms are consistent with a viral infection. For your headache I want you to take the following 3 medications together: Reglan (metoclopramide) in 10 mg, 1 pill Benadry (diphenhydramine) l 25 mg, 2 pills Excedrin migraine (acetaminophen, aspirin, caffeine), 2 pills. After you take these medications, lie down in a dark quiet room and try to fall asleep. ?These medications will make you sleepy, do not drive or work after taking these medications. Follow-up with your doctor in 2 days. Please return to the emergency department if your symptoms get worse or if you develop any symptoms that are concerning to you. Prescriptions: New metoclopramide HCl [Reglan] 10 mg tablet 10 mg PO Q6H PRN (Reason: nausea and vomiting) Qty: 14 0RF No Action baclofen 10 mg tablet 10 mg PO BID PRN (Reason: muscle spasm) Qty: 20 0RF Rx Instructions: USE FOR TMJ PAIN SPARINGLY diclofenac sodium 50 mg tablet,delayed release (DR/EC) 50 mg PO Q12H PRN (Reason: pain) Qty: 30 0RF Rx Instructions: TAKE W FOOD; AVOID OTHER NSAIDS dicyclomine 10 mg capsule 10 mg PO QID PRN (Reason: abdominal pain) Qty: 120 1RF albuterol sulfate 90 mcg/actuation aerosol powdr breath activated 2 inh inhalation Q6H PRN (Reason: shortness of breath or wheezing) Qty: 1 0RF desog-e.estradiol/e.estradiol 0.15-0.02 mgx21 /0.01 mg x 5 tablet 1 tab PO DAILY Qty: 84 4RF Rx Instructions: start with menses medroxyprogesterone [Provera] 10 mg tablet 10 mg PO DAILY Qty: 10 0RF miconazole nitrate [Miconazole-7] 2 % cream 1 appful vaginal BEDTIME 7 Days Qty: 45 3RF Print Language: Icelandic
[2024-07-28 13:55] VITALS: BP 130/79; PULSE 92; RESP 16; TEMP 37.7; O2SAT 95; BMI 45.0
[2024-07-28 16:04] LABS: Influenza A PCR NEGATIVE (Negative); Influenza B PCR NEGATIVE (Negative); Resp Syncy Virus RNA Qual PCR NEGATIVE (Negative); SARS COV2 PCR INHOUSE NEGATIVE (Negative)
[2024-07-28] MEDS: Acetaminophen 325 MG TABLET 975 MG PO (19:30)
[2024-07-28] MEDS: Metoclopramide HCl 10 MG TABLET PO (19:30)
[2024-07-28] MEDS: Aspirin 325 MG TABLET PO (19:30)
[2024-07-28] MEDS: diphenhydrAMINE HCL 25 MG CAPSULE 50 MG PO (19:30)
[2024-07-28] MEDS: Morphine Sulfate Immed Release 15 MG TABLET PO (21:53)
[2024-07-28 22:19] VITALS: BP 129/69; PULSE 91; RESP 16; TEMP 36.9; O2SAT 98
== END 2024-07-28 22:21 | disposition home or self-care (01) ==
PROVIDERS: Nurse Practitioner Family; Emergency Provider Emergency Medicine Emergency Medical Services; PCP Nurse Practitioner Family
DX: B34.9 Viral infection, unspecified (principal); R51.9 Headache, unspecified; R05.9 Cough, unspecified; J02.9 Acute pharyngitis, unspecified; R50.9 Fever, unspecified; M79.10 Myalgia, unspecified site; R11.0 Nausea; F17.200 Nicotine dependence, unspecified, uncomplicated; Z03.818 Encounter for observation for suspected exposure to other biological agents ruled out; Z79.899 Other long term (current) drug therapy
CPT/HCPCS: 0241U; 99283; 99284

== ENCOUNTER 2024-07-31 09:37 | Outpatient (AMB) | payer OTHER, SELFPAY ==
--- NOTE | 2024-07-31 09:52 | A.OFFPC_ITS ---
Vital Signs 07/31/24 09:56 Height 5 ft 9 in Weight 299 lb 2 oz BMI 44.2 BP 135/72 Blood Pressure Location Lt brachial Position Sitting Respiration 15 Pulse 105 H Pulse Source Pulse Oximeter Temp 98.5 F Temp Source Oral Oxygen Delivery Method Room Air Intake Visit Reasons: ed fu/ headache/chills/cough (make sure has mask) Intake Note: follow up on cough, chills, headache, sweats and feeling exhausted Allergies No Known Allergies Allergy (Verified 07/31/24 09:55) Medication List - Last Reconciled 07/31/24 by Mayra Luis, [facility]- albuterol sulfate 90 mcg/actuation 2 inhalations inhalation Q6H PRN baclofen 10 mg PO BID PRN desog-e.estradiol/e.estradiol 0.15-0.02 mgx21 /0.01 mg x 5 1 tab PO DAILY diclofenac sodium 50 mg PO Q12H PRN dicyclomine 10 mg PO QID PRN medroxyprogesterone (Provera) 10 mg PO DAILY metoclopramide HCl (Reglan) 10 mg PO Q6H PRN miconazole nitrate 2% (Miconazole-7) 1 appful vaginal BEDTIME 7 days Tobacco use date assessed: 02/16/24 Dental Screening Dental Screen Date: 04/17/24 HPI HPI Comments History of Present Illness Details Here today for an ED f/u: [facility] ED visit 07/28/24 MDM Narrative: 24-year-old female with a history TMJ ar thralgia, irritable bowel syndrome, depression who presents emergency department for evaluation of viral-like illness for 3 days with symptoms including fever, chills, nausea with no vomiting, myalgias, arthralgias, diarrhea, headaches and nonproductive cough. Patient has been able to drink fluids. Vital signs were unremarkable. Physical examination was unremarkable. Differential diagnosis: ?Includes but is not limited to viral syndrome, bronchitis, pneumonia, volume depletion, dehydration, COVID-19, RSV influenza Following evaluation was ordered: COVID-19, RSV, influenza Patient was initially treated with the following: Acetaminophen 975 mg orally, aspirin 325 mg orally, Reglan 10 mg orally, Benadryl 50 mg orally Course: 21:45 The patient's COVID-19, RSV and influenza tests were negative. The patient's presentation is consistent with a viral syndrome and I did discuss this with her. Patient got minimal improvement of her headache with the above treatment but was able to sleep. The patient was given morphine 15 mg orally and then discharged home. I did instruct her to take the following 3 medications together every as needed for headache: Reglan 10 mg, Benadryl 50 mg, Excedrin migraine 2 tablets. She was given printed and verbal instructions and discharged home. Admission/Observation Consideration of admission/observation: Escalation of care including admission/observation considered (Yes) Lab Data MDM Lab Attestation statement: I reviewed the patient's lab results. My interpretation patient's laboratory evaluation as follows: COVID-19, i nfluenza and RSV were negative Labs: Lab Results 07/28/24 Range/Units 14:41 Influenza Type A ( PCR) NEGATIVE (Negative) Influenza Type B ( PCR) NEGATIVE (Negative) RSV RNA Qual (PCR) NEGATIVE (Negative) SARS-CoV-2 RNA (RT -PCR) NEGATIVE (Negative) Prescription Management I considered prescription management with: Other (Anti migraine/antiemetic medication, Reglan) Discharge Plan Discharge Clinical Impression: Viral syndrome, Headache Patient Disposition: Home, Self-Care Additional Instructions: Your COVID-19, influenza and RSV tests were negative Your symptoms are consistent with a viral infection. For your headache I want you to take the following 3 medications together: Reglan (metoclopramide) in 10 mg, 1 pill Benadry (diphenhydramine) l 25 mg, 2 pills Excedrin migraine (acetaminophen, aspirin, caffeine), 2 pills. After you take these medications, lie down in a dark quiet room and try to fall asleep. ?These medications will make you sleepy, do not drive or work after taking these medications. Follow-up with your doctor in 2 days. Please return to the emergency department if your symptoms get worse or if you develop any symptoms that are concerning to you. She presents today with her dad. Reports that she started to feel sick about 4 days before the emergency room visit. She reports feeling tired, little energy, lack of appetite, nausea without vomiting, fever, chills, sweats, headache worse on the left side, left ear feeling full and a cough. Also reports spots in her visual field at times, that come and go. She has been treating her symptoms with the Reglan, Benadryl and Excedrin. However she has not felt any improvement. The treatment plan has made her sleep a lot however. She did rec ently return from [facility] in May. She tells me that she was sick while she was there with what she calls a tonsillitis, these symptoms have resolved fully. 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 Denies red flag sx of headache. Exam Awake alert NAD, mildly ill appearing Sclera and conjunctiva clear bilat Nares with clear drainage bilat, turbinates erythematous and edematous, no sinus tenderness with palpation bilat TM intact with clouding bilat, L>R MM dry, tongue bright red, pharynx erythematous, no ac adenopathy Tachycardic LS dim throughout d/t poor inspiratory effort, occasional cough w/o distress No rash. Neurovasc intact. Plan: Strep negative. The plan will be to check labs as well as a chest x-ray. We will need to rule out mono given the exam today and complaints of excessive fatigue. Will be called later with the results and plan. This note is constructed using voice recognition software. While every effort has been made to ensure accuracy in restaurant worker, still errors may have been included Sometimes, these errors may affect the content or meaning of the given sentence . Total time spent caring for the patient today was 57 minutes. This includes time spent before the visit reviewing the chart, time spent during the visit, and time spent after the visit on documentation At 14:30, the patient and her father were called. Made aware of the chest x-ray findings which did show a left lower lobe pneumonia. Wilkinson negative. Mild hyponatremia, otherwise labs within normal limits. We will treat with Augmentin for 7 days. Zofran for nausea. Advised to take liberally to avoid nausea and vomiting as she will need to take the Augmentin with food. Stop taking the Reglan and the diphenhydramine. Start prednisone 40 mg p.o. q.day x3 days to help with the cough, headache and body aches. This will also need to be taken with food. Liberally hydrate. Be sure to include dad otherwise supportive car e. Out of work until August 12, return to work sooner if able. We will need to repeat a chest x-ray in 1 month. This order has been placed today. She will also need an office visit to follow up. I will have the front office desk arrange for this. EDu on reasons to seek additional care. *Additional 13 minutes spent on the phone w/ patient and dad reviewing xray and plan of care. PFSH Medical History IGTN (ingrowing toe nail) Surgical History H/O oral surgery Family History Mother Mental disorder HTN (hypertension) Diabetes Thyroid disorder Psychiatric disorder Father Asthma Maternal Grandfather HTN (hypertension) Diabetes Other Substance abuse Social History Housing: House Housing Other:: duplex Alcohol intake: current Alcohol intake frequency: holidays/special occasions only Patient Tobacco Use Status: Current someday Tobacco user Years Smoked: Less then a year, smokes occasionally e-Cigarette/Vaping Use: Never Used Second Hand Smoke Exposure: No Substance Use Type: Marijuana service: No Current occupational status: employed Current occupation: [employer] Current occupational exposures/hazards: No Cognitive needs: No Hearing needs: No Vision needs: No Female Reproductive History Menstrual Age of Menarche: 12 Questionnaire Thrive Questionnaire Date Thrive assessed: 02/16/24 ANTONELLA-7 AMB Questionnaire ANTONELLA-7 Date ANTONELLA - 7 assessed: 02/16/24 Source: Developed by Drs. Yahir Rico, Zenobia Nicholson, Reed Soria and colleagues, with an educational leonard from [employer]. Physical exam (Primary Care) Vital Signs: Last Vital Signs Temp 98.5 F 07/31/24 09:56 Pulse 105 H 07/31/24 09:56 Resp 15 07/31/24 09:56 BP 135/72 07/31/24 09:56 Oxygen Delivery Method Room Air 07/31/24 09:56 BMI result Body Mass Index 44.2 Tobacco/Smoking Status: Tobacco use Status Tobacco use date assessed 02/16/24 07/31/24 09:52 Patient Tobacco Use Status Current someday Tobacco 07/31/24 09:52 e-Cigarette/Vaping Use Never Used 07/31/24 09:52 Thrive Assessment: Date of Thrive Assessment Date Thrive assessed 02/16/24 07/31/24 09:52 Results AMB Rapid Strep AMB Rapid Strep Negative Last Edit by Suyapa Grimes MA on 07/31/24 10:45 Results Reviewed Results Reviewed: Laboratory Last Values Strep Scn Rapid Clinic Negative 07/31/24 10:41 [facility] [address] [place] [address] [place] [address] XRay Report Signed Patient: Christa Amezcua MR#: [id number] : 2000 Acct:[id number] Age/Sex: 24 / F ADM Date: 07/31/24 Loc: HO.[facility]GCX Attending Dr: Mayra SUTTON Ordering Physician: Mayra Luis Date of Service: 07/31/24 Procedure(s): XR chest 2V Accession Number(s): [id number] cc: Mayra Luis~ EXAMINATION: XR CHEST CLINICAL INFORMATION: Rule out pneumonia COMPARISON: Chest radiograph 06/05/2016 TECHNIQUE: 2 views of the chest were obtained. FINDINGS: The lungs are adequately expanded. Retrocardiac opacity with air bronchograms partially obscuring the left hemidiaphragm. On the lateral projection, there is increased density over the lower thoracic vertebral bodies. The right lung is clear. No pleural effusions. No pneumothorax. The cardiomediastinal silhouette is within normal limits. No acute osseous abnormality. XR/XR chest 2V IMPRESSION: Left lower lobe consolidative opacity as detailed. Findings can be seen with pneumonia in the appropriate clinical context. Electronically signed by: Jamaal Moscoso MD 07/31/2024 02:01 PM EDT Dictated By: Jamaal Moscoso Signed By: <Electronically signed by Jamaal Moscoso in OV> 07/31/24 1401 DD/ 1135 TD/TT: 07/31/24 1138 Ex Assistant/Program Director: RUN: 07/31/241436 PAGE 1 [facility] [address] [place] [phone] Computer Service Technician: El Ann M.D. Specimen Inquiry Name: Christa Amezcua Age/Sex: 24/F : 2000 Unit#: [id number] Attend Dr: Mayra Luis Re07/31/24 Status: REG REF Location: [facility] Disch: SPEC : [id number] PAULINO: 07/31/24 STATUS: COMP REQ : [id number] RECD: 07/31/[address] [facility] [address]: Mayra Luis COMP: 07/31/247 ENTERED: 07/31/24-[address]: ORDERED: Monotest Test Result Flag Reference Wilkinson Test Negative Negative RUN: 07/31/242 PAGE 1 [facility] [address] [place] [phone] Computer Service Technician: El Ann M.D. Specimen Inquiry Name: Christa Amezcua Age/Sex: 24/F : 2000 Unit#: [id number] Attend Dr: Mayra Luis Re07/31/24 Status: REG REF Location: [facility] Disch: SPEC : [id number] PAULINO: 07/31/24 STATUS: COMP REQ : [id number] RECD: 07/31/24-[address]: Mayra Luis [facility] COMP: 07/31/24-1351 ENTERED: 07/31/24-[address]: ORDERED: Liver Panel/R, BMP, Lipid Panel/R Test Result Flag Reference Sodium 133 L 135-145 mmol/L Potassium 3.5 # 3.3-5.1 mmol/L CL 100 96-108 mmol/L CO2 23 22-29 mmol/L Gap 14 12-20 BUN 6 L 9-16 mg/dL Creat 0.85 0.5-1.4 mg/dL EGFR > 60 NOTE: For -Citizen Of [place] individuals, multiply the result by 1.210. Chronic Kidney Disease: Estimated GFR < 60 mL/min/1.73m2 Severe Kidney Disease: Estimated GFR < 15 mL/min/1.73m2 Glucose, Random 137 H 60-115 mg/dL CA 9.7 8.4-10.2 mg/dL Total Bili 0.2 0.0-1.0 mg/dL Direct Bili < 0.2 0.0-0.5 mg/dL AST (GOT) 34 H 5-31 U/L ALT (GPT) 29 0-31 U/L Protein, Total 7.9 6.5-8.0 g/dL Alb 3.7 3.5-5.0 g/dL RUN: 07/31/24 1436 PAGE 1 [facility] [address] [place] [phone] Computer Service Technician: El Ann M.D. Specimen Inquiry Name: Christa Amezcua Age/Sex: 24/F : 2000 [facility]#: [id number] Unit#: [id number] Attend Dr: Mayra Luis Re07/31/24 Status: REG REF [facility] Disch: SPEC : [id number] PAULINO: 07/31/24 STATUS: COMP REQ : [id number] RECD: 07/31/[address]: Mayra LuisPBenjamín COMP: 07/31/24 ENTERED: 07/31/[address]: ORDERED: CBC No Diff Test Result Flag Reference WBC 5.2 4.8-10.8 X10*3/uL RBC 4.79 4.20-5.50 X10*6/uL HGB 12.8 12.0-16.0 g/dl HCT 38.0 37.0-47.0 % MCV 79.3 L 80.0-98.0 fL MCH 26.7 L 27.0-33.0 pg MCHC 33.7 31.0-35.0 g/dl RDW 13.2 11.0-16.0 % PLT 302 160-400 X10*3/uL MPV 9.9 9.4-12.3 fL NRBC Pct Auto 0.0 0.0-0.2 /100WBC NRBC Abs Auto 0.000 0.0-0.012 X10*3/uL Assessment and Plan Assessment & Plan (1) Hospital discharge follow-up: Code(s): Z09 - Encounter for follow-up examination after completed treatment for conditions other than malignant neoplasm (2) LLL pneumonia: Code(s): J18.9 - Pneumonia, unspecified organism Qualifiers: Pneumonia type: due to unspecified organism Qualified Code(s): J18.9 - Pneumonia, unspecified organism (3) Viral syndrome: Code(s): B34.9 - Viral infection, unspecified (4) Headache: Code(s): R51.9 - Headache, unspecified Qualifiers: Headache type: other headache syndrome Qualified Code(s): G44.89 - Other headache syndrome (5) Hyponatremia: Code(s): E87.1 - Hypo-osmolality and hyponatremia Orders: Orders AMB Rapid Strep Screen Today J02.9 - Acute pharyngitis, unspecified Basic Metabolic Panel Today B34.9 - Viral infection, unspecified, R51.9 - Headache, unspecified XR chest 2V Today B34.9 - Viral infection, unspecified, R51.9 - Headache, unspecified XR chest 2V 08/28/24 J18.9 - Pneumonia, unspecified organism Monotest Today B34.9 - Viral infection, unspecified, R51.9 - Headache, unspecified Complete Blood Count no Diff Today B34.9 - Viral infection, unspecified, R51.9 - Headache, unspecified Medications: New prednisone 40 mg (2 x 20 mg) PO DAILY 3 days 6 tabs 0RF amoxicillin-pot clavulanate 875-125 mg 1 tab PO BID 7 days 14 tabs 0RF ondansetron HCl 4 mg PO Q8H 3 days PRN 15 tabs 0RF nausea and vomiting Discontinued metoclopramide HCl (Reglan) Discontinued Reason: Doctor's Order 10 mg PO Q6H PRN 14 tabs 0RF nausea and vomiting Coding Level of Care Code Est Pt Level 5 (39850) Complex EM visit Add On G2211 Diagnoses Hospital discharge follow-up Z09 Pneumonia of left lower lobe due to infectious organism J18.9 Pneumonia type: due to unspecified organism Viral syndrome B34.9 Other headache syndrome G44.89 Headache type: other headache syndrome Hyponatremia E87.1 CPT Codes [facility] OUTPT/OFFICE VIS - G2212
[2024-07-31 09:56] VITALS: BP 135/72; PULSE 105; RESP 15; TEMP 36.9; BMI 44.2
--- NOTE | 2024-08-02 07:50 | MHC.PC.OV ---
Vital Signs 07/31/24 09:56 Height 5 ft 9 in Weight 299 lb 2 oz BMI 44.2 BP 135/72 Blood Pressure Location Lt brachial Position Sitting Respiration 15 Pulse 105 H Pulse Source Pulse Oximeter Temp 98.5 F Temp Source Oral Oxygen Delivery Method Room Air Intake Visit Reasons: ed fu/ headache/chills/cough (make sure has mask) Allergies No Known Allergies Allergy (Verified 07/31/24 09:55) Medication List - Last Reconciled 07/31/24 by Mayra Luis, [facility]- albuterol sulfate 90 mcg/actuation 2 inhalations inhalation Q6H PRN baclofen 10 mg PO BID PRN desog-e.estradiol/e.estradiol 0.15-0.02 mgx21 /0.01 mg x 5 1 tab PO DAILY diclofenac sodium 50 mg PO Q12H PRN dicyclomine 10 mg PO QID PRN medroxyprogesterone (Provera) 10 mg PO DAILY metoclopramide HCl (Reglan) 10 mg PO Q6H PRN miconazole nitrate 2% (Miconazole-7) 1 appful vaginal BEDTIME 7 days Tobacco use date assessed: 02/16/24 Dental Screening Dental Screen Date: 04/17/24 HPI HPI Comments History of Present Illness Details Telehealth visit today for this 24-year-old with left lower lobe pneumonia who was seen in the office on Monday. The mother is calling to report that Christa was talking to herself, as if instructing herself when she went to go check in on her this morning. She reports that she is eating and drinking, taking her medications. She reports that she is coughing. Reports that she had a great night as she was able to sleep most of it, which she had not been up until this point. When asked about a temperature, reports that she has not been able to take a temperature yet however she will do this and call me back to let me know. PFSH Medical History IGTN (ingrowing toe nail) Surgical History H/O oral surgery Family History Mother Mental disorder HTN (hypertension) Diabetes Thyroid disorder Psychiatric disorder Father Asthma Maternal Grandfather HTN (hypertension) Diabetes Other Substance abuse Social History (Reviewed 06/11/24 @ 15:28 by Viktoria Bernard [facility]) Housing: House Housing Other:: duplex Alcohol intake: current Alcohol intake frequency: holidays/special occasions only Patient Tobacco Use Status: Current someday Tobacco user Years Smoked: Less then a year, smokes occasionally e-Cigarette/Vaping Use: Never Used Second Hand Smoke Exposure: No Substance Use Type: Marijuana service: No Current occupational status: employed Current occupation: [employer] Current occupational exposures/hazards: No Cognitive needs: No Hearing needs: No Vision needs: No Female Reproductive History Menstrual Age of Menarche: 12 Questionnaire Thrive Questionnaire Date Thrive assessed: 02/16/24 ANTONELLA-7 AMB Questionnaire ANTONELLA-7 Date ANTONELLA - 7 assessed: 02/16/24 Source: Developed by Drs. Yahir Rico, Zenobia Nicholson, Reed Soria and colleagues, with an educational leonard from [employer]. Physical exam (Primary Care) Vital Signs: Last Vital Signs Temp 98.5 F 07/31/24 09:56 Pulse 105 H 07/31/24 09:56 Resp 15 07/31/24 09:56 BP 135/72 07/31/24 09:56 Oxygen Delivery Method Room Air 07/31/24 09:56 BMI result Body Mass Index 44.2 Tobacco/Smoking Status: Tobacco use Status Tobacco use date assessed 02/16/24 07/31/24 09:52 Patient Tobacco Use Status Current someday Tobacco 07/31/24 09:52 e-Cigarette/Vaping Use Never Used 07/31/24 09:52 Thrive Assessment: Date of Thrive Assessment Date Thrive assessed 02/16/24 07/31/24 09:52 Results AMB Rapid Strep AMB Rapid Strep Negative Last Edit by Suyapa Grimes MA on 07/31/24 10:45 Telehealth Telehealth Telehealth Platform: Telephone Location of provider rendering services: practice address Location of patient: address on file Patient Identification confirmed using: Name, : Yes Telehealth method: voice only Patient verbally consented to treatment: Yes Patient verbally consented to billing insurance company: Yes Patient informed of any privacy concerns related to visit: Yes Minutes spent on Phone/Video with Pt.: 7 Results Reviewed Results Reviewed: Laboratory Last Values Strep Scn Rapid Clinic Negative 07/31/24 10:41 Assessment and Plan Assessment & Plan (1) LLL pneumonia: Code(s): J18.9 - Pneumonia, unspecified organism Qualifiers: Pneumonia type: due to unspecified organism Qualified Code(s): J18.9 - Pneumonia, unspecified organism (2) Headache: Code(s): R51.9 - Headache, unspecified Qualifiers: Headache type: other headache syndrome Qualified Code(s): G44.89 - Other headache syndrome (3) Hyponatremia: Code(s): E87.1 - Hypo-osmolality and hyponatremia Orders: Orders AMB Rapid Strep Screen 07/31/24 J02.9 - Acute pharyngitis, unspecified Basic Metabolic Panel 07/31/24 B34.9 - Viral infection, unspecified, R51.9 - Headache, unspecified XR chest 2V 07/31/24 B34.9 - Viral infection, unspecified, R51.9 - Headache, unspecified XR chest 2V 08/28/24 J18.9 - Pneumonia, unspecified organism Monotest 07/31/24 B34.9 - Viral infection, unspecified, R51.9 - Headache, unspecified Complete Blood Count no Diff 07/31/24 B34.9 - Viral infection, unspecified, R51.9 - Headache, unspecified Medications: New prednisone 40 mg (2 x 20 mg) PO DAILY 6 tabs 0RF 3 days amoxicillin-pot clavulanate 875-125 mg 1 tab PO BID 14 tabs 0RF 7 days ondansetron HCl 4 mg PO Q8H PRN 15 tabs 0RF nausea and vomiting 3 days Discontinued metoclopramide HCl (Reglan) Discontinued Reason: Doctor's Order 10 mg PO Q6H PRN 14 tabs 0RF nausea and vomiting Coding Diagnoses Pneumonia of left lower lobe due to infectious organism J18.9 Pneumonia type: due to unspecified organism Other headache syndrome G44.89 Headache type: other headache syndrome Hyponatremia E87.1
== END 2024-07-31 11:55 | disposition home or self-care (01) ==
PROVIDERS: PCP Nurse Practitioner Family; Visit Provider Nurse Practitioner Family
DX: J18.9 Pneumonia, unspecified organism (principal); B34.9 Viral infection, unspecified; G44.89 Other headache syndrome; E87.1 Hypo-osmolality and hyponatremia; Z09 Encounter for follow-up examination after completed treatment for conditions other than malignant neoplasm; J02.9 Acute pharyngitis, unspecified

== ENCOUNTER → 2024-07-31 09:37 | Outpatient (BNVA) | payer OTHER, SELFPAY | PROVIDERS: PCP Nurse Practitioner Family; Visit Provider Nurse Practitioner Family ==

== ENCOUNTER 2024-07-31 11:23 | Outpatient (REF) | payer OTHER, SELFPAY ==
--- NOTE | ~2024-07-31 | XR_ITS ---
EXAMINATION: XR CHEST CLINICAL INFORMATION: Rule out pneumonia COMPARISON: Chest radiograph 06/05/2016 TECHNIQUE: 2 views of the chest were obtained. FINDINGS: The lungs are adequately expanded. Retrocardiac opacity with air bronchograms partially obscuring the left hemidiaphragm. On the lateral projection, there is increased density over the lower thoracic vertebral bodies. The right lung is clear. No pleural effusions. No pneumothorax. The cardiomediastinal silhouette is within normal limits. No acute osseous abnormality. XR/XR chest 2V IMPRESSION: Left lower lobe consolidative opacity as detailed. Findings can be seen with pneumonia in the appropriate clinical context. Electronically signed by: Jamaal Moscoso MD 07/31/2024 02:01 PM EDT
[2024-07-31 13:26] LABS: Hemoglobin 12.8 g/dl (12.0-16.0); Mean Corpuscular HGB Conc 33.7 g/dl (31.0-35.0); Mean Corpuscular Hemoglobin 26.7 pg (27.0-33.0); Mean Corpuscular Volume 79.3 fL (80.0-98.0); Mean Platelet Volume 9.9 fL (9.4-12.3); Platelet Count 302 X10*3/uL (160-400); Red Blood Count 4.79 X10*6/uL (4.20-5.50); Red Cell Distribution Width 13.2 % (11.0-16.0); White Blood Count 5.2 X10*3/uL (4.8-10.8)
[2024-07-31 13:51] LABS: Alanine Aminotransferase 29 U/L (0-31); Albumin Level 3.7 g/dL (3.5-5.0); Alkaline Phosphatase 52 U/L (39-117); Anion Gap 14 (12-20); Aspartate Amino Transferase 34 U/L (5-31); Bilirubin Direct < 0.2 mg/dL (0.0-0.5); Bilirubin Total 0.2 mg/dL (0.0-1.0); Blood Urea Nitrogen 6 mg/dL (9-16); Calcium 9.7 mg/dL (8.4-10.2); Carbon Dioxide 23 mmol/L (22-29); Chloride 100 mmol/L (96-108); Cholesterol 167 mg/dL (<200); Estimated Glomerular Filt Rate > 60; Glucose Random 137 mg/dL (60-115); HDL Cholesterol 9 mg/dL (>40); Potassium 3.5 mmol/L (3.3-5.1); Sodium 133 mmol/L (135-145); Total Protein 7.9 g/dL (6.5-8.0); Triglycerides 591 mg/dL (<150)
[2024-07-31 13:57] LABS: Monotest Negative (Negative)
== END 2024-07-31 11:24 | disposition home or self-care (01) ==
LOC: HO.HMGCX 11:23
PROVIDERS: PCP Nurse Practitioner Family; Visit Provider Nurse Practitioner Family
DX: E88.810 Metabolic syndrome (principal); J18.9 Pneumonia, unspecified organism; B34.9 Viral infection, unspecified; G44.89 Other headache syndrome; E87.1 Hypo-osmolality and hyponatremia
CPT/HCPCS: 36415; 71046; 80048; 80061; 80076; 85027; 86308; 87880; 99212

== ENCOUNTER 2024-08-02 13:22 | Outpatient (AMB) | payer OTHER, SELFPAY ==
[2024-08-02 13:09] VITALS: TEMP 36.7
--- NOTE | 2024-08-02 13:09 | MHC.PC.OV ---
Vital Signs 08/02/24 13:09 Temp 98.0 F Temp Source Temporal Artery Scan Intake Visit Reasons: telehealth pna Allergies No Known Allergies Allergy (Verified 08/02/24 13:26) Medication List - Last Reconciled 08/02/24 by Mayra Luis, [facility]- albuterol sulfate 90 mcg/actuation 2 inhalations inhalation Q6H PRN amoxicillin-pot clavulanate 875-125 mg 1 tab PO BID 7 days baclofen 10 mg PO BID PRN desog-e.estradiol/e.estradiol 0.15-0.02 mgx21 /0.01 mg x 5 1 tab PO DAILY diclofenac sodium 50 mg PO Q12H PRN dicyclomine 10 mg PO QID PRN medroxyprogesterone (Provera) 10 mg PO DAILY miconazole nitrate 2% (Miconazole-7) 1 appful vaginal BEDTIME 7 days ondansetron HCl 4 mg PO Q8H PRN 3 days prednisone 40 mg (2 x 20 mg) PO DAILY 3 days Tobacco use date assessed: 02/16/24 Dental Screening Dental Screen Date: 04/17/24 HPI HPI Comments History of Present Illness Details Telehealth visit today for this 24-year-old with left lower lobe pneumonia who was seen in the office on Monday. The mother is calling at 0730 to report that Christa was talking to herself, as if instructing herself when she went to go check in on her this morning. She reports that she is eating and drinking, taking her medications. She reports that she is coughing. Reports that she had a great night as she was able to sleep most of it, which she had not been up until this point. When asked about a temperature, reports that she has not been able to take a temperature yet however she will do this and call me back to let me know. I called back at 1300 for close interim follow up. Christa and her mom were on the phone together for this call. Christa reports that she is feeling so much better. Her temperature is 98 degrees without a fever fundraising officer. She just ate a bowl of chicken noodle soup. She no longer has a headache. She does tell me that she has episodes of coughing to the point she feels like she is going to vomit however she has not vomited. She does have access to an oximeter at home but has not checked her pulse or her oxygen levels. She called her uncle who is a retired physician and he advised for her to stop taking the Zofran in the prednisone. She did stop taking after a single dose of each. She has a new complaint of sores in her mouth and on her tongue that make it difficult for her to eat and drink. She has been avoiding dairy as she has found that this is caused excess mucus in her mouth. She is eating things like salad with salad dressing which seem to bother her mouth. She remains tolerating compliant of her antibiotic therapy. On the phone Christa is talking and laughing, speaking in full sentences, occasional cough but no paroxysmal cough. No audible wheezing. She is alert and oriented, conversation appropriately both myself and her mom who was also present on the phone call. I have advised for her to continue to take her antibiotics as directed. I will discontinue the Zofran and the prednisone as she is not taking it. She is no longer having any nausea so there is no need for Zofran at this time. I would like for her to continue to liberally hydrate, eat diet as tolerated, be sure to include sodium in her intake. In regards to the mouth sores, I have advised for her to use [id number] Mylanta 30 mL rinse gargle and spit. I would like to follow up with her in 1 week. I will have the front office staff reach out to set up this appointment. Return to the office and emergency room education provided Total time spent caring for the patient today was 35 minutes. This includes time spent before the visit reviewing the chart, time spent during the visit, and time spent after the visit on documentation PFSH Medical History IGTN (ingrowing toe nail) Surgical History H/O oral surgery Family History Mother Mental disorder HTN (hypertension) Diabetes Thyroid disorder Psychiatric disorder Father Asthma Maternal Grandfather HTN (hypertension) Diabetes Other Substance abuse Social History Housing: House Housing Other:: duplex Alcohol intake: current Alcohol intake frequency: holidays/special occasions only Patient Tobacco Use Status: Current someday Tobacco user Years Smoked: Less then a year, smokes occasionally e-Cigarette/Vaping Use: Never Used Second Hand Smoke Exposure: No Substance Use Type: Marijuana service: No Current occupational status: employed Current occupation: [employer] Current occupational exposures/hazards: No Cognitive needs: No Hearing needs: No Vision needs: No Female Reproductive History Menstrual Age of Menarche: 12 Questionnaire Thrive Questionnaire Date Thrive assessed: 02/16/24 ANTONELLA-7 AMB Questionnaire ANTONELLA-7 Date ANTONELLA - 7 assessed: 02/16/24 Source: Developed by Drs. Yahir Rico, Zenobia Nicholson, Reed Soria and colleagues, with an educational leonard from [employer]. Physical exam (Primary Care) Tobacco/Smoking Status: Tobacco use Status Tobacco use date assessed 02/16/24 07/31/24 09:52 Patient Tobacco Use Status Current someday Tobacco 07/31/24 09:52 e-Cigarette/Vaping Use Never Used 07/31/24 09:52 Thrive Assessment: Date of Thrive Assessment Date Thrive assessed 02/16/24 07/31/24 09:52 Telehealth Telehealth Telehealth Platform: Telephone Location of provider rendering services: practice address Location of patient: address on file Patient Identification confirmed using: Name, : Yes Telehealth method: voice only Patient verbally consented to treatment: Yes Patient verbally consented to billing insurance company: Yes Patient informed of any privacy concerns related to visit: Yes Minutes spent on Phone/Video with Pt.: 35 Assessment and Plan Assessment & Plan Medications: Discontinued prednisone Discontinued Reason: Doctor's Order 40 mg (2 x 20 mg) PO DAILY 3 days 6 tabs 0RF ondansetron HCl Discontinued Reason: Doctor's Order 4 mg PO Q8H 3 days PRN 15 tabs 0RF nausea and vomiting Coding Level of Care Code Tele Est Pt Level 4 (74553) Complex EM visit Add On G2211
== END 2024-08-02 13:30 | disposition home or self-care (01) ==
LOC: HO.HMCFM 13:22
PROVIDERS: PCP Nurse Practitioner Family; Visit Provider Nurse Practitioner Family
DX: J18.9 Pneumonia, unspecified organism (principal); E87.1 Hypo-osmolality and hyponatremia

== ENCOUNTER → 2024-08-02 13:22 | Outpatient (BNVA) | payer OTHER, SELFPAY | PROVIDERS: PCP Nurse Practitioner Family; Visit Provider Nurse Practitioner Family ==

== ENCOUNTER 2024-09-18 11:09 | Outpatient (REF) | payer OTHER, SELFPAY ==
--- NOTE | ~2024-09-18 | XR_ITS ---
EXAMINATION: XR CHEST CLINICAL INFORMATION: Pneumonia, assess for resolution. COMPARISON: 07/31/2024 chest x-ray. TECHNIQUE: PA and lateral FINDINGS: The cardiac, hilar, and mediastinal contours are normal. Lungs are currently clear bilaterally. Previously seen left lower lobe consolidation has completely resolved. No residual opacity. No effusion or pneumothorax. Soft tissues and bony structures appear normal. XR/XR chest 2V IMPRESSION: Normal chest with complete resolution of left lower lobe pneumonia. Electronically signed by: Virgilio Medeiros MD 09/20/2024 08:42 AM EST
== END 2024-09-18 11:10 | disposition home or self-care (01) ==
LOC: HO.XRAY 11:09
PROVIDERS: PCP Nurse Practitioner Family; Visit Provider Nurse Practitioner Family
DX: J18.9 Pneumonia, unspecified organism (principal)
CPT/HCPCS: 71046

== ENCOUNTER → 2024-09-18 11:13 | Outpatient (BNV) | payer OTHER, SELFPAY | PROVIDERS: PCP Nurse Practitioner Family; Visit Provider Radiology Diagnostic Radiology | DX: J18.9 Pneumonia, unspecified organism (principal) | CPT/HCPCS: 71046 ==

== ENCOUNTER 2024-09-18 12:44 | Outpatient (REF) | payer OTHER, SELFPAY ==
[2024-09-18 14:42] LABS: Estimated Average Glucose 126 mg/dL; Total Hemoglobin (HGBA1C) 3224.4395 umol/L
== END 2024-09-18 12:45 | disposition home or self-care (01) ==
LOC: HO.WFDLDS 12:44
PROVIDERS: Visit Provider Nurse Practitioner Family
DX: E88.810 Metabolic syndrome (principal)
CPT/HCPCS: 36415; 83036

== ENCOUNTER 2024-09-19 14:57 | Outpatient (AMB) | payer OTHER, SELFPAY ==
[2024-09-19 15:08] VITALS: BP 120/78; BMI 44.0
--- NOTE | 2024-09-19 15:08 | A.OFFVIS_ITS ---
Vital Signs 09/19/24 15:08 Height 5 ft 9 in Weight 298 lb BMI 44.0 BP 120/78 Intake Visit Reasons: Ultrasound follow up Information Interpreted: clinical only Assistant Director Of Financial Aid: Assistant Director Of Financial Aid Present Allergies No Known Allergies Allergy (Verified 09/19/24 15:09) Medication List - Last Reconciled 09/19/24 by Tiffany Kelly CNM albuterol sulfate 90 mcg/actuation 2 inhalations inhalation Q6H PRN baclofen 10 mg PO BID PRN desog-e.estradiol/e.estradiol 0.15-0.02 mgx21 /0.01 mg x 5 1 tab PO DAILY diclofenac sodium 50 mg PO Q12H PRN dicyclomine 10 mg PO QID PRN miconazole nitrate 2% (Miconazole-7) 1 appful vaginal BEDTIME 7 days Is last menstrual period known: Yes Last menstrual period: 09/09/24 HPI HPI Ultrasound follow up: Details: Patient is here to review her pelvic ultrasound. She had presented for her summer she had been pelvic exams was she does not she got the HPV vaccine so she is going to investigate getting the HPV vaccine and whether her insurance would cover getting it in the office or not. She is just getting over being very sick she came down with an upper respiratory infection and went to the emergency room and was done it knows with a viral infection but a few days later ended up seeking a visit with her doctor and had a chest x-ray and was diagnosed with pneumonia. She is just finished the meds and cough is just finally improving she also describes symptoms that in somewhat out of it pain in her chest when she would lift her arm and also pulsing pain in head. She said her pulse had been up to 130. She does not know if her blood pressure was up. 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 She has an appointment with her primary tomorrow.. She got a withdrawal bleed 2-3 days after stopping Provera in the summer and then she started pills and she has been getting fairly regular periods since. She had gained weight after seen but then she could not eat when she is sick, so she lost 10 lb then. and has not regained it. [facility] Medical History IGTN (ingrowing toe nail) Surgical History H/O oral surgery Family History Mother Mental disorder HTN (hypertension) Diabetes Thyroid disorder Psychiatric disorder Father Asthma Maternal Grandfather HTN (hypertension) Diabetes Other Substance abuse Social History Housing: House Housing Other:: duplex Alcohol intake: current Alcohol intake frequency: holidays/special occasions only Patient Tobacco Use Status: Current someday Tobacco user Years Smoked: Less then a year, smokes occasionally e-Cigarette/Vaping Use: Never Used Second Hand Smoke Exposure: No Substance Use Type: Marijuana service: No Current occupational status: employed Current occupation: [employer], [employer] Current occupational exposures/hazards: No Cognitive needs: No Hearing needs: No Vision needs: No Female Reproductive History Menstrual Age of Menarche: 12 Date of last menstrual period: 09/09/24 Physical Exam Vital Signs: Last Vital Signs BP 120/78 09/19/24 15:08 Results Reviewed Results Reviewed: Patient: Christa Amezcua MR#: [id number] : 2000 Acct:[id number] Age/Sex: 24 / F ADM Date: 06/18/24 Loc: HO.US Attending Dr: Tiffany Kelly CNM Ordering Physician: Tiffany Kelly CNM Date of Service: 06/18/24 Procedure(s): US pelvic complete Accession Number(s): [id number] cc: Tiffany Kelly CNM; Mayra Luis~ EXAMINATION: US PELVIS CLINICAL INFORMATION: Irregular menses, morbid obesity, unknown last menstrual period. COMPARISON: None available. TECHNIQUE: Ultrasound of the pelvis is performed using both transabdominal and transvaginal transducers along with Doppler. Patient declined transvaginal ultrasound images. Limited visualization due to bowel gas and body habitus. FINDINGS: The uterus is anteverted and measures 7.4 x 2.9 x 4.0 cm. Endometrial thickness is 7 mm. No significant free fluid. Right ovary measures 2.5 x 1.4 x 1.9 cm, volume 3.5 mL. Left ovary measures 2.0 x 1.2 x 1.8 cm, volume 2.3 mL. Bilateral ovaries are grossly unremarkable, although visualization is limited due to bowel gas. No significant free fluid. US/US pelvic complete IMPRESSION: 1. Endometrial thickness is 7 mm. 2. Bilateral ovaries are grossly unremarkable, although visualization is limited due to bowel gas. 3. No significant free fluid. 4. Patient declined transvaginal ultrasound images. Limited visualization due to bowel gas and body habitus. Dictated By: Talia Bain MD Signed By: <Electronically signed by Talia Bain MD in OV> 06/24/24 1501 DD/ 1517 TD/TT: Upholsterer Helper: Assessment & Plan Assessment & Plan (1) History of irregular menstrual bleeding: Code(s): Z87.42 - Personal history of other diseases of the female genital tract Category: Medical (2) Metabolic syndrome: Comment: addressed also in film painter visit Code(s): E88.810 - Metabolic syndrome Category: Medical (3) Morbidly obese: Comment: BMI greater than 46 with major depressive disorder and generalized anxiety disorder. Code(s): E66.01 - Morbid (severe) obesity due to excess calories Category: Medical Plan Patient is here to review her pelvic ultrasound. She had presented for her summer she had been pelvic exams was she does not she got the HPV vaccine so she is going to investigate getting the HPV vaccine and whether her insurance would cover getting it in the office or not. She is just getting over being very sick she came down with an upper respiratory infection and went to the emergency room and was done it knows with a viral infection but a few days later ended up seeking a visit with her doctor and had a chest x-ray and was diagnosed with pneumonia. She is just finished the meds and cough is just finally improving she also describes symptoms that in somewhat out of it pain in her chest when she would lift her arm and also pulsing pain in head. She said her pulse had been up to 130. She does not know if her blood pressure was up. 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 She has an appointment with her primary tomorrow.. She got a withdrawal bleed 2-3 days after stopping Provera in the summer and then she started pills and she has been getting fairly regular periods since. She had gained weight after seen but then she could not eat when she is sick, so she lost 10 lb then. and has not regained it. Reviewed her ultrasound review the course her illness reviewed that she probably would have been checked to see if in her symptoms a lined blood clot. She is going follow-up with her primary tomorrow about her other symptoms. Reviewed that often viral upper respiratory infections can end up her dress into pneumonia because of easy ability for bacteria to grow in his lots of extra secretions. She will reschedule an annual exam next year but also before that when she is ready Pap smear whenever she feels ready she is not sexually active never has been w the exception of external touching Encouraged to doing her best taking care of her health and I will see her at her next visit Coding Level of Care Code Est Pt Level 3 (32746) Diagnoses History of irregular menstrual bleeding Z87.42 Metabolic syndrome E88.810 Morbidly obese E66.01
== END 2024-09-19 16:16 | disposition home or self-care (01) ==
LOC: HO.HWSM 14:58
PROVIDERS: PCP Nurse Practitioner Family; Visit Provider Advanced Practice Midwife
DX: Z87.42 Personal history of other diseases of the female genital tract (principal); E88.810 Metabolic syndrome; E66.01 Morbid (severe) obesity due to excess calories
CPT/HCPCS: 99213

== ENCOUNTER → 2024-09-19 14:57 | Outpatient (BNVA) | payer OTHER, SELFPAY | PROVIDERS: PCP Nurse Practitioner Family; Visit Provider Advanced Practice Midwife | DX: E66.01 Morbid (severe) obesity due to excess calories (principal); E88.810 Metabolic syndrome; Z68.41 Body mass index [BMI] 40.0-44.9, adult; Z87.42 Personal history of other diseases of the female genital tract | CPT/HCPCS: 99212 ==

== ENCOUNTER 2024-09-20 09:12 | Outpatient (AMB) | payer OTHER, SELFPAY ==
--- NOTE | 2024-09-20 09:18 | A.OFFPC_ITS ---
Vital Signs 09/20/24 09:24 Height 5 ft 9 in Weight 299 lb BMI 44.1 BP 115/58 L Blood Pressure Location Rt brachial Position Sitting Respiration 13 Pulse 58 Pulse Source Pulse Oximeter Pulse Oximetry (%) 97 Oxygen Delivery Method Room Air Intake Visit Reasons: end of august 30 min w/ me chronic dz mgmt, Intake Note: follow up Naval Architect Specialist Required: No Allergies No Known Allergies Allergy (Verified 09/20/24 09:35) Medication List - Last Reconciled 09/20/24 by Mayra Luis, ELECTRICAL AND INSTRUMENTATION MECHANIC- albuterol sulfate 90 mcg/actuation 2 inhalations inhalation Q6H PRN baclofen 10 mg PO BID PRN desog-e.estradiol/e.estradiol 0.15-0.02 mgx21 /0.01 mg x 5 1 tab PO DAILY diclofenac sodium 50 mg PO Q12H PRN dicyclomine 10 mg PO QID PRN estradiol 0.5 mg PO DAILY miconazole nitrate 2% (Miconazole-7) 1 appful vaginal BEDTIME 7 days Tobacco use date assessed: 02/16/24 Dental Screening Dental Screen Date: 04/17/24 HPI HPI Comments History of Present Illness Details 24-year-old female with obesity, MDD, GA D, IBS, TMJ R , prediabetes, metabolic syndrome, LLL PNA (08/2024) Here today to fu on LLL PNA and chronic conditions Sx assoc w/ PNA are resolved s/p Augmentin. CXR f/u shows resolution - see below. 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 However she now has sinus congestion, thinks related to her cats and exposure. Has mild cough related to this only. When she was ill she developed a left-sided headache, while it has improved, it continues to be present. She describes it as a pulsatile, zinc [place] type sensation affecting the left side of her head. It is intermittent in nature. One of her family members is a doctor in wishes for this to be evaluated by an image. She denies any neuro complaints other than the headache. In regards to her other chronic conditions, Her labs previously did show hyponatremia. Repeat labs today show improvement. She is eating and drinking normally. Her A1c was 6.0 previously in the setting of metabolic syndrome. It remains stable at 6.0%. Her weight is also stable. Exam: awake alert NAD PERRLA, EOMI TM intact and clear bilat Nares w congestion, R>L, turbates pale and edematous, bilat frontal sinus tenderness w palp Tonsils grade 1 + uvula midline, manages secretions RRR LS CTAB Neuro exam grossly normal Plan Check CMP today Get PCV at pharmacy when feeling better Doxy for sinus infection; no nasal sprays other than flonase/nasocort CT of head to eval pulsatile headache on L side, emergency room education provided today. Next visit telehealth to review CT results Then RTO CPE January, sooner as needed. This note is constructed using voice recognition software. While every effort has been made to ensure accuracy in dairy equipment specialist, still errors may have been included Sometimes, these errors may affect the content or meaning of the given sentence . Total time spent caring for the patient today was 45 minutes. This includes time spent before the visit reviewing the chart, time spent during the visit, and time spent after the visit on documentation PFSH Medical History IGTN (ingrowing toe nail) Surgical History H/O oral surgery Family History Mother Mental disorder HTN (hypertension) Diabetes Thyroid disorder Psychiatric disorder Father Asthma Maternal Grandfather HTN (hypertension) Diabetes Other Substance abuse Social History Housing: House Housing Other:: duplex Alcohol intake: current Alcohol intake frequency: holidays/special occasions only Patient Tobacco Use Status: Current someday Tobacco user Years Smoked: Less then a year, smokes occasionally e-Cigarette/Vaping Use: Never Used Second Hand Smoke Exposure: No Substance Use Type: Marijuana service: No Current occupational status: employed Current occupation: [employer] Current occupational exposures/hazards: No Cognitive needs: No Hearing needs: No Vision needs: No Female Reproductive History Menstrual Age of Menarche: 12 Questionnaire PHQ-9 Over the last 2 weeks, how often have you been bothered by any of the following problems? 1. Little interest or pleasure in doing things: several days 2. Feeling down, depressed, or hopeless: several days 3. Trouble falling or staying asleep, or sleeping too much: more than half the days 4. Feeling tired or having little energy: several days 5. Poor appetite or overeating: not at all 6. Feeling bad about yourself - or that you are a failure or have let yourself or your family down: several days 7. Trouble concentrating on things, such as reading the newspaper or watching television: several days 8. Moving or speaking so slowly that other people could have noticed. Or the opp osite - being so fidgety or restless that you have been moving around a lot more than usual: not at all 9. Thoughts that you would be better off or of hurting yourself in some way: not at all Total score: 7 27764 - PHQ-9 Billing: Yes Source: Developed by Drs. Yahir Rico, Zenobia Nicholson, Reed Soria and colleagues, with an educational leonard from [employer]. Thrive Questionnaire Date Thrive assessed: 09/20/24 I am a: Patient What is your living situation today?: I have a place to live, but I am worried about losing it in the future Within the past 12 months, did the food you bought not last and you didn't have the money to get more?: Never true Within the past 12 months, did you worry whether your food would run out before you got money to buy more?: Never true Do you have trouble paying for medicines?: I choose not to answer this question Do you have trouble getting transportation to medical appointments?: No Do you have trouble paying your heating and electricity bill?: No Do you have trouble taking care of your child, family member or friend?: No Do you have trouble with day-to-day activities such as bathing, preparing meals, shopping, managing finances, etc.?: No Are you currently unemployed and looking for a job?: Yes Are you interested in more education?: Yes Please select the resources that you would like help with: None Currently or been in a relationship where the following occur: I choose not to answer THRIVE Score: 1 AUDIT C Alcohol Use Questionnaire (AUDIT-C) 1. How often do you have a drink containing alcohol?: Monthly or less 2. How many drinks containing alcohol do you have on a typical day when you are drinking?: 3 or 4 3. How often do you have six or more drinks on one occasion?: Less than monthly Total Score: 3 ANTONELLA-7 AMB Questionnaire ANTONELLA-7 Date ANTONELLA - 7 assessed: 09/20/24 Feeling nervous, anxious, or on edge: 1 = Several days Not being able to stop or control worryin = Several days Worrying too much about different things: 1 = Several days Trouble relaxin = Several days Being so restless that it is hard to sit still: 0 = Not at all Becoming easily annoyed or irritable: 1 = Several days Feeling afraid as if something awful might happen: 1 = Several days Total ANTONELLA-7 score (0-4 normal; 5-9 mild; 10-14 moderate; 15-21 severe): 6 Source: Developed by Drs. Yahir Rico, Zenobia Nicholson, Reed Soria and colleagues, with an educational leonard from [employer]. ANTONELLA-7 Assessment Billing ANTONELLA-7 Assessment Tool: ANTONELLA-7 Assessment 16638 Physical exam (Primary Care) Vital Signs: Last Vital Signs Pulse 58 09/20/24 09:24 Resp 13 09/20/24 09:24 BP 115/58 L 09/20/24 09:24 Pulse Ox 97 09/20/24 09:24 Oxygen Delivery Method Room Air 09/20/24 09:24 BMI result Body Mass Index 44.1 Tobacco/Smoking Status: Tobacco use Status Tobacco use date assessed 02/16/24 09/20/24 09:20 Patient Tobacco Use Status Current someday Tobacco 09/20/24 09:20 e-Cigarette/Vaping Use Never Used 09/20/24 09:20 PHQ-9: PHQ-9 Score PHQ-9: Total score 7 09/20/24 14:29 Thrive Assessment: Date of Thrive Assessment Date Thrive assessed 09/20/24 09/20/24 09:20 Currently or been in a relationship where the following occur: I choose not to answer Results Reviewed Results Reviewed: [address] [address] XRay Report Signed Patient: Christa Amezcua MR#: [id number] : 2000 Acct:[id number] Age/Sex: 24 / F ADM Date: 09/18/24 Loc: [facility] Attending Dr: Mayra SUTTON Ordering Physician: Mayra Luis Date of Service: 09/18/24 Procedure(s): XR chest 2V Accession Number(s): [id number] cc: Mayra Luis~ EXAMINATION: XR CHEST CLINICAL INFORMATION: Pneumonia, assess for resolution. COMPARISON: 07/31/2024 chest x-ray. TECHNIQUE: PA and lateral FINDINGS: The cardiac, hilar, and mediastinal contours are normal. Lungs are currently clear bilaterally. Previously seen left lower lobe consolidation has completely resolved. No residual opacity. No effusion or pneumothorax. Soft tissues and bony structures appear normal. XR/XR chest 2V IMPRESSION: Normal chest with complete resolution of left lower lobe pneumonia. Electronically signed by: Virgilio Medeiros MD 09/20/2024 08:42 AM [facility] Dictated By: Virgilio Medeiros MD Signed By: <Electronically signed by Virgilio Medeiros MD in OV> 09/20/24 0842 DD/ 1113 TD/TT: 09/18/24 1120 Furniture Mechanic: RUN: 09/20/24 0933 PAGE 1 [facility] [address] [place] [id number] Commercial Stripper: El Ann M.D. Specimen Inquiry Name: Christa Amezcua Age/Sex: 24/F : 2000 Unit#: [id number] Attend Dr: Mayra Luis Re09/18/24 Status: DEP REF Location: [facility] Disch: SPEC : [id number] PAULINO: 09/18/24 STATUS: COMP REQ : [id number] RECD: 09/18/241418 SUBM DR: Mayra Luis COMP: 09/18/241442 ENTERED: 09/18/[address]: ORDERED: Hgb A1c Test Result Flag Reference A1c % 6.0 <6.0 % Hemoglobin A1C Reference Range Adults: 4.8 - 6.0 % Non diabetic: < 6.0 % Goal: < 7.0 % Additional Action Suggested: > 8.0 % Note: Hemoglobin A1c results are invalid for patients with abnormal amounts of HbF. Blood transfusions may impact the HbA1c concentration in the patient sample. Est. Avg. Gluc 126 mg/dL eAG = Estimated average glucose which is %A1C expressed as average glucose, using the formula of the C5F-Lyxszei Average Glucose study (ADAG), Diabetes Care, Vol.31,#8, 2007 RUN: 09/20/24 1428 PAGE 1 [facility] [address] [place] [id number] Commercial Stripper: El Ann M.D. Specimen Inquiry Name: Christa Amezcua Age/Sex: 24/F : 2000 Unit#: [id number] Attend Dr: Mayra Luis Re09/20/24 Status: REG REF Location: [facility] Disch: SPEC : [id number] PAULINO: 09/20/24 STATUS: COMP REQ : [id number] RECD: 09/20/[address]: Mayra Luis COMP: 09/20/24-1221 ENTERED: 09/20/24-1002 [facility] : ORDERED: CMP Test Result Flag Reference Sodium 140 135-145 mmol/L Potassium 4.0 3.3-5.1 mmol/L CL 108 96-108 mmol/L CO2 24 22-29 mmol/L Gap 12 12-20 BUN 8 L 9-16 mg/dL Creat 0.75 0.5-1.4 mg/dL EGFR > 60 NOTE: For -Malagasy individuals, multiply the result by 1.210. Chronic Kidney Disease: Estimated GFR < 60 mL/min/1.73m2 Severe Kidney Disease: Estimated GFR < 15 mL/min/1.73m2 Glucose, Random 127 H 60-115 mg/dL CA 8.9 # 8.4-10.2 mg/dL Total Bili 0.1 0.0-1.0 mg/dL AST (GOT) 15 5-31 U/L ALT (GPT) 11 0-31 U/L Protein, Total 7.2 6.5-8.0 g/dL Alb 3.8 3.5-5.0 g/dL Alk Phos 61 39-117 U/L Coding Level of Care Code Est Pt Level 5 (99536) Complex EM visit Add On G2211 Diagnoses Metabolic syndrome E88.810 Hyponatremia E87.1 Other headache syndrome G44.89 Headache type: other headache syndrome Pneumonia of left lower lobe due to infectious organism J18.9 Pneumonia type: due to unspecified organism Acute bacterial sinusitis J01.90; B96.89 Additional Codes ANTONELLA-7 Assessment Billing - ANTONELLA-7 Assessment Tool: ANTONELLA-7 Assessment 54209 ([id number]) PHQ-9 - 78734 - PHQ-9 Billing: Yes ([id number]) Assessment & Plan Assessment & Plan (1) Metabolic syndrome: Comment: 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 (2) Hyponatremia: Comment: resolved Code(s): E87.1 - Hypo-osmolality and hyponatremia Category: Medical Plan: . (3) Headache: Code(s): R51.9 - Headache, unspecified Category: Medical Qualifiers: Headache type: other headache syndrome Qualified Code(s): G44.89 - Other headache syndrome Plan: . (4) LLL pneumonia: Comment: resolved Code(s): J18.9 - Pneumonia, unspecified organism Category: Medical Qualifiers: Pneumonia type: due to unspecified organism Qualified Code(s): J18.9 - Pneumonia, unspecified organism Plan: . (5) Acute bacterial sinusitis: Code(s): J01.90 - Acute sinusitis, unspecified; B96.89 - Other specified bacterial agents as the cause of diseases classified elsewhere Plan: What Is It? Sinuses are air-filled spaces behind the bones of the upper face: between the eyes and behind the forehead, nose and cheeks. The lining of the sinuses are made up of cells with tiny hairs on their surfaces called cilia. Other cells in the lining produce mucus. The mucus traps germs and pollutants and the cilia push the mucus out through narrow sinus openings into the nose. When the sinuses become inflamed or infected, the mucus thickens and clogs the openings to one or more sinuses. Fluid builds up inside the sinuses causing increased pressure. Also bacteria can become trapped, multiply and infect the lining. This is sinusitis. Prevention There are some measures you can take to decrease your risk of developing sinusitis. If you smoke cigarettes, you should quit. The smoke can irritate nasal passageways and increase the likelihood of infection. Nasal allergies can trigger sinus infections, too. By identifying the allergen (the substance causing the allergic reaction) and avoiding it, you can help prevent sinusitis. If you have congestion from a cold or allergies, the following may help to reduce the risk of developing sinusitis: Drink lots of water. This thins nasal secretions and keeps mucous membranes moist. Use steam to soothe nasal passages. Breathe deeply while standing in a hot shower, or inhale the vapor from a basin filled with hot water while holding a towel over your head. Avoid blowing your nose with great force, which can push bacteria into the sinuses. Some doctors advise periodic home nasal washings to clear secretions. This may help prevent, and also treat, sinus infections. Treatment Many sinus infections improve without treatment. However, several medications may speed recovery and reduce the chance that an infection will become chronic. Decongestants - Congestion often triggers sinus infections, and decongestants can open the sinuses and allow them to drain. Several are available: Pseudoephedrine (Sudafed) is available without prescription, alone or in combination with other medications in multi-symptom cold and sinus remedies. Pseudoephedrine can cause insomnia, racing pulse and jitteriness. Do not use if you have high blood pressure or a heart condition. Phenylephrine (such as Sudafed PE) is an alternative jwwq-iic-ueudqhw oral decongestant. If you take products containing oral phenylephrine, check with the pharmacist to be certain there is no interaction with other medications you take. Oxymetazoline (Afrin, Dristan and others) and phenylephrine ([place]-Synephrine and others) are found in nasal sprays. They are effective and may be less likely to cause the side effects seen with pseudoephedrine. However, using a nasal decongestant for more than three days can cause worse symptoms when you stop the medication. This is called the rebound effect. Antihistamines - These medications help to relieve the symptoms of nasal allergies that lead to inflammation and infections. However, some doctors advise against using antihistamines during a sinus infection because they can cause excessive drying and slow the drainage process. Djhq-hnh-apagyui antihistamines include diphenhydramine (Benadryl and others), chlorpheniramine (Chlor-Trimeton and others) and loratadine (Claritin). Fexofenadine (Martina) and cetrizine (Zyrtec) are available by prescription. Nasal steroids - Anti-inflammatory sprays such as mometasone (Nasonex) and fluticasone (Flonase), both available by prescription, reduce swelling of nasal membranes. Like antihistamines, nasal steroids can be most useful for those who have nasal allergies. Nasal steroids tend to produce less drying than antihistamines. Unlike nasal decongestants, nasal steroids can be used for prolonged periods. Saline nasal sprays - These salt-water sprays are safe to use and can provide some relief by adding moisture to the nasal passages, thinning mucus secretions and helping to flush out any bacteria that may be present. Pain relievers - Acetaminophen (Tylenol), ibuprofen (Advil, Motrin and others) or naproxen (Aleve) can be taken sinus pain. Antibiotics - Your doctor may prescribe an antibiotic if he or she suspects that a bacterial infection is causing your sinusitis. If you start taking an antibiotic, complete the entire course so that the infection is completely killed off. Not all cases of sinusitis require antibiotic treatment: Talk with your doctor about whether an antibiotic is right for you. Keep in mind that antibiotics can cause side effects, such as allergic reactions, rash and diarrhea. In addition, overusing antibiotics eventually leads to the spread of bacteria that no longer can be killed by the most commonly prescribed antibiotics. When To Call A Professional Contact a doctor if you experience facial pain along with a headache and fever, cold symptoms that last longer than seven to 10 days, or persistent green discharge from the nose. If your symptoms don't improve within a week of beginning treatment, call your doctor. Call sooner if symptoms are getting worse. If you have repeated bouts of acute sinusitis, you may have allergies or another treatable cause of sinus congestion. Ask your doctor for advice. Orders: Orders Comprehensive Met. Panel Today E87.1 - Hypo-osmolality and hyponatremia, E88.810 - Metabolic syndrome CT head/brain w IV con Today G44.89 - Other headache syndrome Medications: New doxycycline hyclate 100 mg PO BID 14 caps 0RF 7 days Patient Instructions: do not use any nasal spray other than flonase/fluticasone or nasocort
[2024-09-20 09:24] VITALS: BP 115/58; PULSE 58; RESP 13; O2SAT 97; BMI 44.1
== END 2024-09-20 09:52 | disposition home or self-care (01) ==
PROVIDERS: PCP Nurse Practitioner Family; Visit Provider Nurse Practitioner Family
DX: E88.810 Metabolic syndrome (principal); E87.1 Hypo-osmolality and hyponatremia; G44.89 Other headache syndrome; J18.9 Pneumonia, unspecified organism; J01.90 Acute sinusitis, unspecified; B96.89 Other specified bacterial agents as the cause of diseases classified elsewhere

== ENCOUNTER → 2024-09-20 09:12 | Outpatient (BNVA) | payer OTHER, SELFPAY | PROVIDERS: PCP Nurse Practitioner Family; Visit Provider Nurse Practitioner Family | DX: E88.810 Metabolic syndrome (principal); E87.1 Hypo-osmolality and hyponatremia; J44.89 Other specified chronic obstructive pulmonary disease; J18.9 Pneumonia, unspecified organism; J01.90 Acute sinusitis, unspecified; B96.89 Other specified bacterial agents as the cause of diseases classified elsewhere | CPT/HCPCS: 96127; 99212 ==

== ENCOUNTER 2024-09-20 10:01 | Outpatient (REF) | payer OTHER, SELFPAY ==
[2024-09-20 12:21] LABS: Alanine Aminotransferase 11 U/L (0-31); Albumin Level 3.8 g/dL (3.5-5.0); Alkaline Phosphatase 61 U/L (39-117); Anion Gap 12 (12-20); Aspartate Amino Transferase 15 U/L (5-31); Bilirubin Total 0.1 mg/dL (0.0-1.0); Blood Urea Nitrogen 8 mg/dL (9-16); Calcium 8.9 mg/dL (8.4-10.2); Carbon Dioxide 24 mmol/L (22-29); Chloride 108 mmol/L (96-108); Estimated Glomerular Filt Rate > 60; Glucose Random 127 mg/dL (60-115); Sodium 140 mmol/L (135-145); Total Protein 7.2 g/dL (6.5-8.0)
== END 2024-09-20 10:02 | disposition home or self-care (01) ==
LOC: HO.WFDLDS 10:01
PROVIDERS: Visit Provider Nurse Practitioner Family
DX: E87.1 Hypo-osmolality and hyponatremia (principal); E88.810 Metabolic syndrome
CPT/HCPCS: 36415; 80053

== ENCOUNTER 2025-01-21 11:56 | Outpatient (AMB) | payer OTHER, SELFPAY ==
--- NOTE | 2025-01-21 11:57 | A.OFFPC_ITS ---
Vital Signs 01/21/25 12:09 Height 5 ft 9 in Weight 309 lb 6 oz BMI 45.7 BP 118/72 Blood Pressure Location Lt brachial Position Sitting Respiration 13 Pulse 88 Pulse Source Pulse Oximeter Temp 96.9 F Temp Source Oral Pulse Oximetry (%) 95 Oxygen Delivery Method Room Air Intake Visit Reasons: January CPE Intake Note: annual cpe, patient also looking for referral for mental health. Supervisor Pastry Required: No Allergies No Known Allergies Allergy (Verified 01/21/25 12:25) Medication List - Last Reconciled 01/21/25 by Mayra Luis, [facility]- albuterol sulfate 90 mcg/actuation 2 inhalations inhalation Q6H PRN baclofen 10 mg PO BID PRN desog-e.estradiol/e.estradiol 0.15-0.02 mgx21 /0.01 mg x 5 1 tab PO DAILY diclofenac sodium 50 mg PO Q12H PRN dicyclomine 10 mg PO QID PRN Tobacco use date assessed: 01/21/25 Dental Screening Dental Screen Date: 01/21/25 Did you have a dental visit in the last 12 months?: Yes Did you have a dental problem in the last 6 months where you did not have access to dental care?: No Was dental information given to patient?: Patient has dentist HPI HPI Comments History of Present Illness Details 24-year-old female with obesity, MDD, GA D, IBS, TMJ R , prediabetes, metabolic syndrome, LLL PNA (08/2024), marijuana use, HLD Health Maintenance Flu declined 09/2024 Tdap unsure, she will ask her parents and get back to me Pap active w/ nurses aide, bernie, will send me info on new IT CONSULTANT when she finds one 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 - Diagnosed with Major Depressive Disord er and Generalized Anxiety Disorder, although referred for counseling, no therapy commenced since high school. She previously actively engages in self behaviors denies passive suicidality. No plan. Not on medications declines medications. - Prediabetes was noted with a recent Hb A1c level at 6.3%, a slight increase from 6.0% previously, positive obesity and weight refer to dietitian previously but was unable to make the referral interested in referral this time. - Irritable Bowel Syndrome managed with dicyclomine, ongoing symptoms causing tardiness at work and rehearsals were described. Interested in referral to Gastroenterology. - Temporomandibular Joint Disorder indic ated with infrequent severe pain. Baclofen was mentioned as used occasionally. Was referred to ENT for this as well as for seasonal allergies, she did not make the appt from previous referral but is open to a referral today. - Recurring issue of ingrown toenails, m anaged in the past with professional foot care. Needs a new podiatry referral - Chronic ankle swelling post-activity, especially after dancing, has been observed. Social History - Employment: Recently changed jobs due to insurance issues following pneumonia. Currently concerned about job stability. - Exercise: Participates in musicals and dancing, reporting associated ankle swelling. - Nutritional intake: Challenges noted i n diet management due to busy lifestyle, requirement for c.o.d. biller assistance mentioned. Health Maintenance - Considerations discussed regarding pot ential Tdap immunization, pending review of past immunization records. - Encouraged referral to dietitian for a ssistance with managing prediabetic condition and lifestyle changes. - Referral suggested for eye examination due to last review being over three years ago. Review of Systems - Psychiatric: Reports history of depres sive and anxiety symptoms. - Endocrine: Denies symptoms of diabetes but reports prediabetic status. - Gastrointestinal: Reports symptoms con sistent with IBS. - Musculoskeletal: Reports ankle swellin g, and pain associated with TMJ. - Integumentary: Reports chronic issue w ith ingrown toenails. - ENT: Reports issues with tonsils relat ed to potential TMJ. - Neurological: Denies any serious ongoi ng neurological symptoms. Physical Exam General: Well developed, well nourished, in no acute distress. Appears stated age. Head: Normocephalic, atraumatic. Eyes: Pupils are equal, round and reactive to light and accommodation. Conjunctivae are clear. Vision grossly normal. Ears: TMs clear AU, EACS WNL. Nose: Patent, without discharge Throat: uvula midline, tonsils grade +1, managing secretions. Neck: Supple, no adenopathy or thyromegaly. Breast: Edu on SBE. Lungs: Clear to auscultation bilaterally. No rales, rhonchi or wheeze noted. Good air flow in all wood. Heart: Regular rate and rhythm. No murmurs, click, rubs or gallops are noted. Abdomen: Bowel sounds present in all quadrants. The abdomen is soft, nontender, with no masses or organomegaly noted. No hernias are noted. : Deferred. Reviewed recommendations for routine IT CONSULTANT. Pulses: Peripheral pulses are equal and palpable bilaterally. Extremities: No clubbing, cyanosis noted. Trace localized Edema is noted in the ankles. Neurologic: Gait and station normal. Cranial Nerves 2-12 intact. Motor strength grossly symmetrical and intact. No sensory loss. Balance normal. Skin: No rashes, ulcers, or lesions noted. Turgor is good. Skin color is good. Hair is without abnormalities. Scars from self-harm noted on L arm and leg. ingrown toe nails bilat feet. Psych: Normal eye contact, affect and mood appropriate, and normal interactions. Patient is alert and appropriate to context. Reports thoughts of self-harm but no recent actions. Fear and concern for others prevent acting on thoughts. Results - Labs: HbA1c presently at 6.3%, incre ed from the previous 6.0% Labs from 02/16/2024 show normal CBC, normal electrolytes and renal function, impaired fasting glucose of 104, with a hemoglobin A1c of 6.0%, normal iron, normal LFTs, elevated triglycerides at 270, normal cholesterol 181, normal LDL at 88, HDL low at 39, normal B12, normal TSH, normal urine microalbumin crea tinine ratio, vitamin-D WNL. Discussion Notes During the visit, we discussed managing the patient's Major Depressive and Generalized Anxiety Disorders with a counseling referral, and we addressed her concern regarding potential insurance coverage for this service. We also reviewed her prediabetes, with an increased HbA1c level of 6.3% compared to 6.0% previously, and discussed the importance of lifestyle changes with c.o.d. biller aid to manage this condition. Referral needs for TMJ evaluation with ENT services and possible treatment for allergy and enlarged tonsils were addressed. The patient's persistent IBS symptoms warranted referral to a hematology technician. We discussed further interventions, such as podiatry for recurrent ingrown toenails and addressing her ankle swelling after dancing activities. The patient expressed an interest in reviewing her immunization status, emphasizing the requirement for updating her Tdap vaccine. Potential risks and benefits associated with each referral were reviewed, with agreement to move forward. Assessment and Plan 1. Major Depressive Disorder and General ized Anxiety Disorder: Counseling intervention will be initiated. refer to community dipak. 2. Prediabetes: Continues to be monitore d with lifestyle changes and c.o.d. biller support. Management focuses on dietary and lifestyle interventions. refer to c.o.d. biller 3. Irritable Bowel Syndrome: Gastroenter ology referral placed with anticipation of further IBS management options. 4. Temporomandibular Joint Disorder and Tonsils: ENT referral initiates to investigate jaw and tonsillar concerns for adequate management strategies. allergies can be addressed there, too 5. Ingrown toenails: Podiatry involvemen t planned for recurrent bilateral toenail issues. 6. Chronic ankle swelling: Based on phys ical activity involvement, symptoms will be monitored, ready for ongoing evaluation. Patient Instructions - Follow up with ENT for evaluation of T MJ and tonsil condition. - Engage with counseling services referr ed and confirm insurance coverage. Crisis info provided. contracts for safety. - Attend c.o.d. biller appointment to ronny garcía diabetes and IBS management. - Schedule podiatry visit to address chr onic toenail issues. - Maintain hydration and rest regarding ankle swelling post dance activities. - Review past immunization records and u pdate Tdap vaccination as necessary. - Visit gastroenterology for IBS evaluat ion if symptomatic concerns persist. - RTO 6 mo fu prediabetes/mood, sooner P RN Consent Patient was informed and verbally consented to the use of an ambient scribe for clinic note documentation during this visit. An additional 30 minutes was spent addressing the problem(s) noted at todays visit. This includes time spent before the visit reviewing the chart, time spent during the visit, and time spent after the visit on documentation reviewing laboratory results, diagnostic imaging, medications, performing a medically necessary evaluation, counseling on diagnoses, care coordination, ordering appropriate tests, ordering appropriate medications, review of tests performed by other providers, reporting test results with the patient, communication with other healthcare providers. [facility] Medical History (Updated 01/21/25 @ 15:41 by Mayra Luis, IT BUSINESS ANALYST-) IGTN (ingrowing toe nail) LLL pneumonia Persistent disorder of initiating or maintaining wakefulness Surgical History (Reviewed 09/19/24 @ 15:11 by Viktoria Bernard [facility]) H/O oral surgery Family History Mother Mental disorder HTN (hypertension) Diabetes Thyroid disorder Psychiatric disorder Father Asthma Maternal Grandfather HTN (hypertension) Diabetes Other Substance abuse Social History (Reviewed 09/19/24 @ 15:11 by Viktoria Bernard [facility]) Housing: House Housing Other:: duplex Alcohol intake: current Alcohol intake frequency: holidays/special occasions only Patient Tobacco Use Status: Current someday Tobacco user Years Smoked: Less then a year, smokes occasionally e-Cigarette/Vaping Use: Never Used Second Hand Smoke Exposure: No Substance Use Type: Marijuana service: No Current occupational status: employed Current occupation: [employer] Current occupational exposures/hazards: No Cognitive needs: No Hearing needs: No Vision needs: No Female Reproductive History Menstrual Age of Menarche: 12 Questionnaire PHQ-9 Over the last 2 weeks, how often have you been bothered by any of the following problems? 1. Little interest or pleasure in doing things: several days 2. Feeling down, depressed, or hopeless: several days 3. Trouble falling or staying asleep, or sleeping too much: several days 4. Feeling tired or having little energy: several days 5. Poor appetite or overeating: several days 6. Feeling bad about yourself - or that you are a failure or have let yourself or your family down: several days 7. Trouble concentrating on things, such as reading the newspaper or watching television: not at all 8. Moving or speaking so slowly that other people could have noticed. Or the opposite - being so fidgety or restless that you have been moving around a lot more than usual: not at all 9. Thoughts that you would be better off or of hurting yourself in some way: not at all Total score: 6 Depression Screening Interpretation: Positive Depression Screening Follow-up: Existing condition and Community Mental Health Worker F/U Depression Screening Done: Yes 92769 - PHQ-9 Billing: Yes Source: Developed by Drs. Yahir Rico, Zenobia Nicholson, Reed Soria and colleagues, with an educational leonard from [employer]. Thrive Questionnaire Date Thrive assessed: 01/21/25 I am a: Patient What is your living situation today?: I have a steady place to live Within the past 12 months, did the food you bought not last and you didn't have the money to get more?: Never true Within the past 12 months, did you worry whether your food would run out before you got money to buy more?: Never true Do you have trouble paying for medicines?: No Do you have trouble getting transportation to medical appointments?: No Do you have trouble paying your heating and electricity bill?: No Do you have trouble taking care of your child, family member or friend?: No Do you have trouble with day-to-day activities such as bathing, preparing meals, shopping, managing finances, etc.?: No Are you currently unemployed and looking for a job?: I choose not to answer this question Are you interested in more education?: I choose not to answer this question Please select the resources that you would like help with: None Currently or been in a relationship where the following occur: No concerns reported THRIVE Score: 0 AUDIT C Alcohol Use Questionnaire (AUDIT-C) 1. How often do you have a drink containing alcohol?: Monthly or less 2. How many drinks containing alcohol do you have on a typical day when you are drinking?: 3 or 4 3. How often do you have six or more drinks on one occasion?: Less than monthly Total Score: 3 Score Reviewed/Action Taken: Yes ANTONELLA-7 AMB Questionnaire ANTONELLA-7 Date ANTONELLA - 7 assessed: 01/21/25 Feeling nervous, anxious, or on edge: 1 = Several days Not being able to stop or control worryin = Several days Worrying too much about different things: 1 = Several days Trouble relaxin = Several days Being so restless that it is hard to sit still: 0 = Not at all Becoming easily annoyed or irritable: 1 = Several days Feeling afraid as if something awful might happen: 1 = Several days Total ANTONELLA-7 score (0-4 normal; 5-9 mild; 10-14 moderate; 15-21 severe): 6 Source: Developed by Drs. Yahir Rico, Zenobia Nicholson, Reed Soria and colleagues, with an educational leonard from [employer] ANTONELLA-7 Assessment Billing ANTONELLA-7 Assessment Tool: ANTONELLA-7 Assessment 42726 Physical exam (Primary Care) Vital Signs: Last Vital Signs Temp 96.9 F 01/21/25 12:09 Pulse 88 01/21/25 12:09 Resp 13 01/21/25 12:09 BP 118/72 01/21/25 12:09 Pulse Ox 95 01/21/25 12:09 Oxygen Delivery Method Room Air 01/21/25 12:09 BMI result Body Mass Index 45.7 BMI Assessment/Plan discussion: High BMI High, discussed plan: lifestyle Tobacco/Smoking Status: Tobacco use Status Tobacco use date assessed 01/21/25 01/21/25 12:01 Patient Tobacco Use Status Current someday Tobacco 01/21/25 12:01 e-Cigarette/Vaping Use Never Used 01/21/25 12:01 PHQ-9: PHQ-9 Score PHQ-9: Total score 6 01/21/25 12:25 Depression Screening Interpretation: Positive Depression Screening Follow-up: Existing condition and Community Mental Health Worker F/U Thrive Assessment: Date of Thrive Assessment Date Thrive assessed 01/21/25 01/21/25 12:01 Currently or been in a relationship where the following occur: No concerns reported Results AMB Hemoglobin A1c AMB Hemoglobin A1c 6.3 % Last Edit by Suyapa Michelle MA on 01/21/25 12:25 Results Reviewed Results Reviewed: Laboratory Last Values Hgb A1c (Clinic) 6.3 % (4.0-6.0) H 01/21/25 12:23 Coding Level of Care Code Est Pt Level 4 (67867) Est Pt Prev Care 18-39y(26259) Diagnoses Encounter for general adult medical examination with abnormal findings Z00.01 Mild episode of recurrent major depressive disorder F33.0 Major depression episode severity: mild Arthralgia of right temporomandibular joint M26.621 Laterality: right Enlarged tonsils J35.1 Allergy, initial encounter T78.40XA Encounter type: initial encounter Metabolic syndrome E88.810 Irritable bowel syndrome with both constipation and diarrhea K58.2 Irritable bowel syndrome type: with both diarrhea and constipation Marijuana use F12.90 Morbidly obese E66.01 Tetanus, diphtheria, and acellular pertussis (Tdap) vaccination declined Z28.21 IGTN (ingrowing toe nail) L60.0 Deliberate self-cutting Z72.89 Additional Codes ANTONELLA-7 Assessment Billing - ANTONELLA-7 Assessment Tool: ANTONELLA-7 Assessment 18920 ([id number]) PHQ-9 - 07363 - PHQ-9 Billing: Yes ([id number]) Assessment & Plan Assessment & Plan (1) Encounter for general adult medical examination with abnormal findings: Code(s): Z00.01 - Encounter for general adult medical examination with abnormal findings (2) MDD (major depressive disorder), recurrent episode: Comment: Not currently on medications. Referred to counseling. Code(s): F33.9 - Major depressive disorder, recurrent, unspecified Category: Medical Qualifiers: Major depression episode severity: mild Qualified Code(s): F33.0 - Major depressive disorder, recurrent, mild Plan: Crisis Hotlines Suicide prevention, domestic violence, and other crisis hotlines for youth, young adults, and their friends and families. [place] [employer]: The [employer] (formerly known as [employer]) Safeline helps youth who have run away, are thinking about running away, or who already ran away but are ready to come home. Parents and guardians can also contact the hotline if they are worried about their child running away or if their child has already left home. The hotline is available 24 hours a day, seven days a week. Youth, parents, and guardians can also use the online chat feature on the [facility]'s website to ask for help and get support, or [place] [address]. [place] [facility] National Suicide Prevention Lifeline: The National Suicide Prevention Lifeline is a network of local crisis centers that are available 24/ to provide support for youth and adults who are in any kind of emotional crisis. In addition to the main hotline number listed above, there are several other numbers to call depending on your needs: Algerian Language: Deaf and Hard of [phone] Veterans: Disaster Distress: Anyone can also use their online chat feature on their website. National Suicide Prevention Lifeline [facility] Helpline: The [facility] Helpline is available to anyone in [place] who is need of emotional support. Anyone can call or text the helpline to receive help from specially trained volunteers. [place] high school and college students can also get online support through the IMHear_ program. For high school students, volunteers ages 15-18 are available Monday- from 6-9PM. For college students, IMHear_ is available Monday-Monday from 5-9PM. The Leif Project - The Leif Project is a 05/06 crisis intervention and suicide prevention hotline for LGBTQ youth. Youth can also text Leif to for support, or use the online chat feature on the Leif Project's website. [employer] is available Monday-Monday between 3-10PM. [employer] is available seven days a week between 3-10PM. SafeLink: SafeLink is for anyone who is being affected by domestic violence or dating violence. Volunteers at [employer] speak Sammarinese and Algerian, and [employer] also has a service that can provide translation in more than 130 languages. TTY: (3) TMJ arthralgia: Comment: Effect in the right side. Refer to ENT for evaluation and treatment. rX for baclofen 10mg po BID PRN for pain and Diclofenac ER 50mg BID PRN pain Code(s): M26.629 - Arthralgia of temporomandibular joint, unspecified side Category: Medical Qualifiers: Laterality: right Qualified Code(s): M26.621 - Arthralgia of right temporomandibular joint (4) Enlarged tonsils: Comment: ent referral Code(s): J35.1 - Hypertrophy of tonsils Category: Medical (5) Allergies: Comment: Known allergy to cats. Wonders if she has other allergies. Requested referral for allergy testing. This referral was placed today. Made aware that she can not have allergy testing done while on an antihistamine. Code(s): T78.40XA - Allergy, unspecified, initial encounter Category: Medical Qualifiers: Encounter type: initial encounter Qualified Code(s): T78.40XA - Oswaldo rgy, unspecified, initial encounter (6) Metabolic syndrome: Comment: c.o.d. biller referral Code(s): E88.810 - Metabolic syndrome Category: Medical (7) IBS (irritable bowel syndrome): Comment: refer to gi Code(s): K58.9 - Irritable bowel syndrome, unspecified Category: Medical Qualifiers: Irritable bowel syndrome type: with both diarrhea and constipation Qualified Code(s): K58.2 - Mixed irritable bowel syndrome (8) Marijuana use: Code(s): F12.90 - Cannabis use, unspecified, uncomplicated Category: Social Hx Plan: Marijuana: Natural = Safe, Right? Marijuana is readily available to use in many states in the [facility]. Understanding the possible risks of use is important to ensure the safety. No matter how you use marijuana (smoke it, eat it, or apply to your skin), it may cause problems with both short term and senior living use How marijuana affects your BRAIN: Potential effects from Short Term Use Poor focus, memory and reaction time Difficulty with problem solving Hallucinations, paranoia, anxiety Potential effects from Geothermal Production Manager Use Memory problems and trouble learning new things Depression, hallucinations, paranoia, anxiety, worsening PTSD symptoms addiction Brain. It is not safe to drive while on marijuana. It makes it hard to police judge distance, concentrate, react quickly to signals and sounds, be alert and coordinated. If alcohol is combined, this risk is even higher! In regular users, some of the effects from senior living use may last for days or even weeks after stopping marijuana. How inhaling marijuana affects your LUNGS: Inhaling harmful chemicals Gases Small particles Carcinogens (toxins linked to cancer) Breathing problems similar to tobacco smokers Daily cough with mucus Difficulty breathing Lung infections (bronchitis, pneumonia) Lungs How marijuana affects your HEART: Increases risk of heart attack Within the first hour of smoking Increases heart rate 20?100% increase after smoking Increase lasts up to three hours Changes in heart rhythm Feels like your heart skips a beat, or is fluttering, or beating too fast or too slow Heart Is it SAFE to use marijuana with other medications? A combination that can be concerning is the use of opioids and/or benzodiazepines with marijuana. Opioids + Benzodiazepines + Marijuana: Drowsiness: All three can cause drowsiness. Reaction time: All three can reduce reaction time. Do not drive or operate machinery. Overdose: Opioids and Benzodiazepines can cause reduced breathing and in some cases, breathing can stop and a person can . Marijuana containing higher levels of THC may cause difficulty with thinking and memory and this could result in medication errors where extra doses of opioids, benzodiazepines, or other medications may be taken. What is the harm? Example of Opioids Morphine (MS Contin?, Kourtney?) Oxycodone (Percocet?, OxyContin?) Hydrocodone (Vicodin?, [place]?) Fentanyl (Durag esic?) Methadone Heroin Example of Benzodiazepines Lorazepam (Ativan?) Diazepam (Valium?) Alprazolam (Xanax?) Clonazepam (Klonopin?) If you have specific questions about the safety of using marijuana with other medications, please contact your provider or pharmacist. Some marijuana users can become addicted! You can have problems with marijuana withdrawal. You may have withdrawal symptoms the day after you stop using. These can get worse 2 to 3 days after using and can take 1 to 2 weeks or longer to go away. Recovery and Treatment Contact your provider or health care team if you are having concerns about your marijuana use or to learn more about available treatment services. The marijuana plant is not an FDA-approved medicine: The U.S. Food and Drug Administration (FDA) has not approved the marijuana plant as a medication due to lack of studies on the risks and benefits. Marijuana contains over 100 chemical substances known as cannabinoids. Some of these, like tetrahydrocannabinol (THC), have mind altering effects and can be intoxicating. Cannabidiol (CBD), another cannabinoid, does not cause the same ?high? users of THC experience. THC has been studied for the treatment of several conditions, including nausea and increasing appetite. CBD is similarly being studied for a number of conditions, including childhood epilepsy and inflammation. What is different between the marijuana product I get from the marijuana shop and a prescription from the pharmacy? The right dose of any medicine is important. A specific dose of THC is approved to treat nausea, but high doses of THC may cause vomiting. The ingredients in a medicine must be measured and stay the same from one dose to the next. The marijuana plant contains unknown ingredients that change from plant to plant. This makes it hard to control the ?dose? of marijuana needed to treat a condition and use it in the same way we use other medicines. Future studies are ongoing to establish the role of the marijuana plant and the cannabinoids found in the plant for treatment of medical conditions. If you have questions about using a marijuana product for a medical condition, please discuss this with your medical provider to determine the most appropriate treatment for you. CT Providers are not able to prescribe marijuana products. Information in this document was compiled by the [facility] of Excellence in Substance Abuse treatment and Education ([facility]). It contains information from factsheets by the National [place] on Drug Abuse (www.drugabuse.gov) and presentation by Diamond Moore, Diamond Blanchard, & Bria Huff (2010) entitled ?What providers need to know about cannabis use in Veterans with mental health conditions: Research, policy, practice,? and an additional reference: Glory Pa M.D., Nain Gutierrez, Ph.D., Anthony Villegas M.D., and Sunitha Flanagan, Ph.D: Adverse Effects of Marijuana. N Engl J Med 2014; 370:0792-5133, April 17, 2014 DOI: 10.1056/OOATcq2571024. [facility] Academic Detailing Service (9) Morbidly obese: Comment: BMI greater than 45 with major depressive disorder and generalized anxiety disorder. Code(s): E66.01 - Morbid (severe) obesity due to excess calories Category: Medical (10) Tetanus, diphtheria, and acellular pertussis (Tdap) vaccination declined: Code(s): Z28.21 - Immunization not carried out because of patient refusal Category: Medical (11) IGTN (ingrowing toe nail): Comment: recurrent refer to podiatry Code(s): L60.0 - Ingrowing nail Category: Medical (12) Deliberate self-cutting: Comment: contracts for safety crisis info provided Code(s): Z72.89 - Other problems related to lifestyle Category: Medical Plan . Orders: Orders Lipid Panel Today E66.01 - Morbid (severe) obesity due to excess calories, E8 8.810 - Metabolic syndrome AMB Hemoglobin A1c Today Z13.9 - Encounter for screening, unspecified Referrals Ear/Nose/Throat Referral J35.1 - Hypertrophy of tonsils, M26.621 - Arthralgia of right temporomandibular joint, T78.40XA - Allergy, unspecified, initial encounter Podiatry Referral L60.0 - Ingrowing nail Nurse Navigator Referral F33.0 - Major depressive disorder, recurrent, mild Production Control Analyst Nutrition Referral E88.810 - Metabolic syndrome Gastroenterology Referral K58.2 - Mixed irritable bowel syndrome Patient Instructions: Health screenings for women You should visit your health care provider from time to time, even if you are healthy. The purpose of these visits is to: Screen for medical issues Assess your risk for future medical problems Encourage a healthy lifestyle Update vaccinations and other preventive care services Help you get to know your provider in case of an illness Information Even if you feel fine, you should still see your provider for regular checkups. These visits can help you avoid problems in the future. For example, the only way to find out if you have high blood pressure is to have it checked regularly. High blood sugar and high cholesterol levels also may not have any symptoms in the early stages. A simple blood test can check for these conditions. There are specific times when you should see your provider or receive specific health screenings. The [place] Preventive Services Task Force publishes a list of recommended screenings. Below are screening guidelines for women ages 18 to 39. BLOOD PRESSURE SCREENING Your blood pressure should be checked at least once every 3 to 5 years if: Your blood pressure is in the normal range (top number less than 120 mm Hg and bottom number less than 80 mm Hg) You don't have risk factors for high blood pressure Ask your provider if you need your blood pressure checked more often if: The top number is 120 to 129 mm Hg or the bottom number is 70 to 79 mm Hg You have diabetes, heart disease, kidney problems, are overweight, or have certain other health conditions You have a first-degree relative with high blood pressure You are Black You had high blood pressure during a If the top number is 130 mm Hg or greater or the bottom number is 80 mm Hg or greater, this is considered stage 1 hypertension. Schedule an appointment with your provider to learn how you can reduce your blood pressure. Watch for blood pressure screenings in your area. Ask your provider if you can stop in to have your blood pressure checked. BREAST CANCER SCREENING Experts do not agree about the benefits of breast self-exams in finding breast cancer or saving lives. Talk to your provider about what is best for you. A screening mammogram is not recommended for most women under age 40. Your provider may discuss and recommend mammograms, MRI scans, or ultrasounds if you have an increased risk for breast cancer, such as: A mother or sister who had breast cancer at a young age (most often starting screening earlier than the age the close relative was diagnosed) You carry a high-risk genetic marker CERVICAL CANCER SCREENING Cervical cancer screening should start at age 21 years unless your provider advises otherwise. After the first test: Women ages 21 through 29 should have a Pap test every 3 years. Exoprts do not agree on whether HPV testing is recommended for this age group. Women ages 30 through 65 should be screened with either a Pap test every 3 years or the HPV test every 5 years or both tests every 5 years (called cotesting ). Women who have been treated for precancer (cervical dysplasia) should continue to have Pap tests for 20 years after treatment or until age 65, whichever is longer. If you have had your uterus and cervix removed (total hysterectomy), and you have not been diagnosed with cervical cancer or precancer (high grade cervical neoplasia), you do not need cervical cancer screening. CHOLESTEROL SCREENING Cholesterol screening should begin at: Age 45 for women with no known risk factors for coronary heart disease Age 20 for women with known risk factors for coronary heart disease Repeat cholesterol screening should take place: Every 5 years for women with normal cholesterol levels More often if changes occur in lifestyle (including weight gain and diet) More often if you have diabetes, heart disease, kidney problems, or certain other conditions DIABETES SCREENING You should be screened for diabetes starting at age 35 and then repeated every 3 years if you have no risk factors for diabetes. Screening may need to start earlier and be repeated more often if you have other risk factors for diabetes, such as: You have a first degree relative with diabetes. You are overweight or have obesity. You have high blood pressure, prediabetes, or a history of heart disease. Screening for diabetes should be done if you are planning to become and you are overweight and have other risk factors such as high blood pressure. DENTAL EXAM Go to the dentist once or twice every year for an exam and cleaning. Your dentist will evaluate if you need more frequent visits. EYE EXAM Have an eye exam every 5 to 10 years before age 40. If you have vision problems, have an eye exam every 2 years or more often if recommended by your provider. You should have an eye exam that includes an examination of your retina (back of your eye) at least every year if you have diabetes. IMMUNIZATIONS Commonly needed vaccines include: Flu shot: get one every year. COVID-19 vaccine: ask your provider what is best for you. Tetanus-diphtheria and acellular pertussis (Tdap) vaccine: have one at or after age 19 as one of your tetanus-diphtheria vaccines if you did not receive it as an adolescent. Tetanus-diphtheria: have a booster (or Tdap) every 10 years. Varicella vaccine: receive 2 doses if you never had chickenpox or the varicella vaccine. Hepatitis B vaccine: receive 2, 3, or 4 doses, depending on your exact ci rcumstances. Measles, mumps, and rubella (MMR) vaccine: receive 1 to 2 doses if you are not already immune to MMR. Your provider can tell you if you are immune. Ask your provider about the human papillomavirus (HPV) vaccine if: You have not received the HPV vaccine in the past You have not completed the full vaccine series (you should catch up on this shot) Ask your provider if you should receive other immunizations if you have certain health problems that increase your risk for some diseases such as pneumonia. INFECTIOUS DISEASE SCREENING Women who are sexually active should be screened for chlamydia and gonorrhea up until age 25. Women 25 years and older should be screened for chlamydia and gonorrhea if at high risk. Screening for hepatitis C: All adults ages 18 to 79 should get a one-time test for hepatitis C. people should be screened at every . Screening for human immunodeficiency virus (HIV): All people ages 15 to 65 should get a one-time test for HIV. Depending on your lifestyle and medical history, you may also need to be screened for infections such as syphilis and HIV, as well as other infections. PHYSICAL EXAM All adults should visit their provider from time to time, even if they are healthy. The purpose of these visits is to: Screen for disease Assess your risk of future medical problems Encourage a healthy lifestyle Update your vaccinations and other preventive care services Maintain a relationship with a provider in case of an illness Your height, weight, and BMI should be checked at every exam. During your exam, your provider may ask you about: Depression and anxiety Diet and exercise Alcohol and tobacco use Safety issues, such as using seat belts, smoke detectors, and intimate partner violence Your medicines and risk for interactions SKIN SELF-EXAM Your provider may check your skin for signs of skin cancer, especially if you're at high risk, such as if you: Have had skin cancer before Have close relatives with skin cancer Have a weakened immune system OTHER SCREENING Talk with your provider about colon cancer screening if you have a strong family history of colon cancer or polyps, or if you have had inflammatory bowel disease or polyps yourself. Routine bone density screening of women under 40 is not recommended. Crisis Hotlines Suicide prevention, domestic violence, and other crisis hotlines for youth, you ng adults, and their friends and families. [facility]: The [facility] Safeline helps youth who have run away, are thinking about running away, or who already ran away but are ready to come home. Parents and guardians can also contact the hotline if they are worried about their child running away or if their child has already left home. The hotline is available 24 hours a day, seven days a week. Youth, parents, and guardians can also use the online chat feature on the [facility]'s website to ask for help and get support, or [place] [address]. [facility] National Suicide Prevention Lifeline: The [place] Suicide Prevention Lifeline is a network of local crisis centers that are available 05/06 to provide support for youth and adults who are in any kind of emotional crisis. In addition to the main hotline number listed above, there are several other numbers to call depending on your needs: Algerian Language: Deaf and Hard of Hearin1-229.755.9208 Veterans: Disaster Distress: Anyone can also use their online chat feature on their website. [place] Suicide Prevention Lifeline [facility] Helpline: The [facility] Helpline is available to anyone in [place] who is need of emotional support. Anyone can call or text the helpline to receive help from specially trained volunteers. [place] high school and college students can also get online support through the IMHear_ program. For high school students, volunteers ages 15-18 are available Monday- from 6-9PM. For college students, IMHear_ is available Monday-Monday from 5-9PM. The Leif Project - The Leif Project is a 24/ crisis intervention and suicide prevention hotline for LGBTQ youth. Youth can also text Leif to for support, or use the online chat feature on the Leif Project's website. [employer] is available Monday-Monday between 3-10PM. TrevorChat is available seven days a week between 3-10PM. SafeLink: SafeLink is for anyone who is being affected by domestic violence or dating violence. Volunteers at [employer] speak Sammarinese and Algerian, and [employer] also has a service that can provide translation in more than 130 languages. TTY:
[2025-01-21 12:09] VITALS: BP 118/72; PULSE 88; RESP 13; TEMP 36.1; O2SAT 95; BMI 45.7
--- OUTSIDE RECORDS SUMMARY | 2025-01-21 14:42 | XMS_ITS | Encounter Summary ---
Author Organization [facility] Address [address] [place] [address] Phone Care Team Providers Care Gear Setter Name Role Phone Karrie Dunham MD Primary Care Provider Unava ilable Encounter Details Date Type Department Care Team (Late st Contact Info) Description 06/07/2016 Documentation [facility] [address] [place] [address] Family Medicine, Physician [address] [place] [address] Social History Tobacco Use Types Packs/Day Years Used Date Smoking Tobacco: Never Comments:Never smoker Comments Unknown Sex and Gender Information Value Date Recorded Sex Assigned at Not on file Legal Sex Female 4:57 PM EDT Gender Identity Not on file Sexual Orientation Not on file documented as of this encounter Plan of Treatment Not on file documented as of this encounter Visit Diagnoses Not on filedocumented in this encounter Care Teams Gear Setter Relationship Specialty Start Date End Date Karrie Dunham MD PCP - General 06/23/17 documented as of this encounter
--- OUTSIDE RECORDS SUMMARY | 2025-01-21 14:42 | XMS_ITS | Clinical Summary ---
Author Organization [facility] Address [address] [place] [address] Phone Care Team Providers Care Snuff Grinder And Screener Name Role Phone Karrie Dunham MD Primary Care Provider Unava ilable Allergies No known active allergies Medications guaiFENesin (MUCINEX) 600 MG 12 hr tablet Take by mouth. 06/15/2016 Active Active Problems Problem Noted Date Diagnosed Date Abdominal pain 10/17/2015 Overview (11/28/2017): Evaluated by Dr. Eckert 09/27 for abd complaints. Diag with constipatio and abd pain for unclear reasons and on regimen to treat constipation. looking for possible biliary disease to explain the abd pain and to get an abd US/HIDA possibly. Referred to dietitian. 12/29 Hypertriglyceridemia 07/26/2012 Overview (11/28/2017): Onset date 07/26/2012; [facility] Peds Pt/ in 2009 [id number]=064, repeat in 2009 [id number]=844. Referred to [facility] 2009 and 2010.. 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 Was on bactrim prophylaxis. Has had UTIs as a young child.. Immunizations Immunization Administration Dates Next Due DTaP 11/29/2002, 9,1998, 998,1998 Hep A, ped/adol 04/14/2011 Hep B, ped/adol 1998,1998,1998 Hib (HbOC) 1998,1998,1998 IPV 11/29/2002, 9,1998, 998 MMR 11/29/2002,1999 Meningococcal Conj (Menactra) MCV4P 04/14/2011 Tdap 03/04/2010 Varicella 09/18/2007,1999 Family History Relation Name Status Comments Brother Alive Brother: Alive and well Father Alive Father: alive a nd well, Asthma Mother Alive Mother: Hyperli pidemia, Hypertension and diabetes, Diabetes mellitus Other No family histo ry of ADD/ADHD, , No family history of Cancer, No family history of Developmental dislocation of hip, No family history of Seizure disorder, Family history of *Heart Disease, Family history of *Sudden /CT under 55, No family history of Strabismus, No family history of Deafness, No family history of *CVA/Stroke, No family history of Migraines, Family history of Obesity Sister Alive Sister: Alive a nd well Social History Tobacco Use Types Packs/Day Years Used Date Smoking Tobacco: Never Smokeless Tobacco: Never Comments:Never smoker Alcohol Use Standard Drinks/Week Comments No 0 (1 standard drink = 0.6 oz pur e alcohol) Comments Unknown Sex and Gender Information Value Date Recorded Sex Assigned at Not on file Legal Sex Female 4:57 PM EDT Gender Identity Not on file Sexual Orientation Not on file Last Filed Vital Signs Vital Sign Reading Time Taken Comments Blood Pressure 113/66 04/18/2018 11:17 AM EDT Pulse 51 04/18/2018 11:17 AM EDT Temperature 36.5 ??C (97.7 ??F) 03/27/2017 12:00 AM E DT Respiratory Rate - - Oxygen Saturation 97% 06/05/2016 12:00 AM EDT Inhaled Oxygen Concentration - - Weight 127 kg (279 lb) 04/18/2018 11:17 AM EDT Height 175.3 cm (5' 9 ) 04/18/2018 11:17 AM EDT Body Mass Index 41.2 04/18/2018 11:17 AM EDT Plan of Treatment Health Maintenance Due Date Last Done Comments Hepatitis A Vaccines (2 of 2 - 2-dose series) 10/14/2011 04/14/2011 HPV Vaccines (1 - 3-dose series) 2013 DTaP,Tdap,and Td Vaccines (7 - Td or Tdap) 03/04/2020 03/04/2010, 11/29/2002, 05/29/1999, Additional history exists Influenza Vaccines (#1) 2024 COVID-19 Vaccine (2023- season) 2024 HIB Vaccines Aged Out 1998, 05/13, 1998 No longer eligible based on patient's age to complete this topic Hepatitis B Vaccines Completed 1998, 1998, 1998 IPV Vaccines Completed 11/29/2002, 01/11, 1998, Additional history exists MMR Vaccines Completed 11/29/2002, 1999 Varicella Vaccines Completed 09/18/2007, 1999 Meningococcal Vaccine Aged Out 04/14/2011 No dar maged eligible based on patient's age to complete this topic Men B Vaccine Aged Out No longer elig ible based on patient's age to complete this topic Pneumococcal Vaccine Aged Out No long er eligible based on patient's age to complete this topic Insurance [facility] [employer] Care Teams Snuff Grinder And Screener Relationship Specialty Start Date End Date Karrie Dunham MD PCP - General 06/23/17
--- OUTSIDE RECORDS SUMMARY | 2025-01-21 14:42 | XMS_ITS | Encounter Summary ---
Author Organization [facility] Address [address] [place] [address] Phone Care Team Providers Care Practice Office Associate Name Role Phone Karrie Dunham MD Primary Care Provider Unava ilable Encounter Details Date Type Department Care Team (Late st Contact Info) Description 06/29/2017 Conversion Encounter [facility] - [address] [address] Social History Tobacco Use Types Packs/Day Years [...] on filedocumented in this encounter Care Teams Practice Office Associate Relationship Specialty Start Date End Date Karrie Dunham MD PCP - General 06/23/17 documented as of this encounter
--- OUTSIDE RECORDS SUMMARY | 2025-01-21 14:42 | XMS_ITS | Encounter Summary ---
Author Organization [facility] Address [address] [place] [address] Phone Care Team Providers Care Copy Room Technician Name Role Phone Karrie Dunham MD Primary Care Provider Unava ilable Encounter Details Date Type Department Care Team (Late st Contact Info) Description 04/06/2017 Documentation [facility] Medicine [address] [place], [place] [id number] Family Medicine, Physician [address] [place] [address] Social History Tobacco Use Types Packs/Day Years [...] on filedocumented in this encounter Care Teams Copy Room Technician Relationship Specialty Start Date End Date Karrie Dunham MD PCP - General 06/23/17 documented as of this encounter
== END 2025-01-21 12:51 | disposition home or self-care (01) ==
PROVIDERS: PCP Nurse Practitioner Family; Visit Provider Nurse Practitioner Family
DX: Z00.01 Encounter for general adult medical examination with abnormal findings (principal); F33.0 Major depressive disorder, recurrent, mild; E66.01 Morbid (severe) obesity due to excess calories; Z68.42 Body mass index [BMI] 45.0-49.9, adult; T78.40XA Allergy, unspecified, initial encounter; M26.621 Arthralgia of right temporomandibular joint; J35.1 Hypertrophy of tonsils; E88.810 Metabolic syndrome; K58.2 Mixed irritable bowel syndrome; F12.90 Cannabis use, unspecified, uncomplicated; Z28.21 Immunization not carried out because of patient refusal; L60.0 Ingrowing nail; Z72.89 Other problems related to lifestyle

== ENCOUNTER → 2025-01-21 11:56 | Outpatient (BNVA) | payer OTHER, SELFPAY | PROVIDERS: PCP Nurse Practitioner Family; Visit Provider Nurse Practitioner Family ==

== ENCOUNTER 2025-01-21 12:56 | Outpatient (REF) | payer OTHER, SELFPAY ==
--- OUTSIDE RECORDS SUMMARY | 2025-01-21 15:32 | XMS_ITS | Clinical Summary ---
Author Organization [facility] Address [address] [place] [phone] Phone Care Team Providers Care Disintegrator Operator Name Role Phone Karrie Dunham MD Primary [...] Hypertriglyceridemia 07/26/2012 Overview (11/28/2017): Onset date 07/26/2012; [facility] Peds Pt/ in 2009 [id number]=560, repeat in 2009 [id number]. Referred to [facility] 2009 and 2010.. [...] of *Heart Disease, Family history of *Sudden /PR under 55, No family history of Strabismus, [...] patient's age to complete this topic Insurance [facility] [employer] Care Teams Disintegrator Operator Relationship Specialty Start Date End Date Karrie Dunham MD PCP - General 06/23/17
--- OUTSIDE RECORDS SUMMARY | 2025-01-21 15:32 | XMS_ITS | Encounter Summary ---
Author Organization [facility] Address [address] [place] [phone] Phone Care Team Providers Care Terminal Press Operator Name Role Phone Karrie Dunham MD Primary Care Provider Unava ilable Encounter Details Date Type Department Care Team (Late st Contact Info) Description 06/29/2017 Conversion Encounter [facility] - [address] [address] Social History Tobacco Use Types Packs/Day Years [...] on filedocumented in this encounter Care Teams Terminal Press Operator Relationship Specialty Start Date End Date Karrie Dunham MD PCP - General 06/23/17 documented as of this encounter
--- OUTSIDE RECORDS SUMMARY | 2025-01-21 15:33 | XMS_ITS | Encounter Summary ---
Author Organization [facility] Address [address] [place] [address] Phone Care Team Providers Care Turbine Engine Assembler Name Role Phone Karrie Dunham MD Primary Care Provider Unava ilable Encounter Details Date Type Department Care Team (Late st Contact Info) Description 06/07/2016 Documentation [facility] [address] [place] [address] Family Medicine, Physician [address] [place] [address] Social History Tobacco Use Types Packs/Day Years [...] on filedocumented in this encounter Care Teams Turbine Engine Assembler Relationship Specialty Start Date End Date Karrie Dunham MD PCP - General 06/23/17 documented as of this encounter
--- OUTSIDE RECORDS SUMMARY | 2025-01-21 15:33 | XMS_ITS | Encounter Summary ---
Author Organization [facility] Address [address] [place] [address] Phone Care Team Providers Care Boat Ride Operator Name Role Phone Karrie Dunham MD Primary Care Provider Unava ilable Encounter Details Date Type Department Care Team (Late st Contact Info) Description 04/06/[address] [facility] [address] [place], [place] [id number] Family Medicine, Physician [address] [place] [address] Social History Tobacco Use Types Packs/Day Years [...] on filedocumented in this encounter Care Teams Boat Ride Operator Relationship Specialty Start Date End Date Karrie Dunham MD PCP - General 06/23/17 documented as of this encounter
[2025-01-21 15:43] LABS: Cholesterol 157 mg/dL (<200); HDL Cholesterol 41 mg/dL (>40); LDL Cholesterol Calculated 60 mg/dL (<100); Triglycerides 280 mg/dL (<150)
== END 2025-01-21 12:57 | disposition home or self-care (01) ==
LOC: HO.WFDLDS 12:56
PROVIDERS: Visit Provider Nurse Practitioner Family
DX: Z00.01 Encounter for general adult medical examination with abnormal findings (principal); E66.01 Morbid (severe) obesity due to excess calories; Z68.42 Body mass index [BMI] 45.0-49.9, adult; E88.810 Metabolic syndrome; F33.0 Major depressive disorder, recurrent, mild; M26.612 Adhesions and ankylosis of left temporomandibular joint; J35.1 Hypertrophy of tonsils; T78.40XD Allergy, unspecified, subsequent encounter; K58.2 Mixed irritable bowel syndrome; F12.90 Cannabis use, unspecified, uncomplicated; Z28.1 Immunization not carried out because of patient decision for reasons of belief or group pressure; L60.0 Ingrowing nail; Z72.89 Other problems related to lifestyle; Z71.3 Dietary counseling and surveillance
CPT/HCPCS: 36415; 80061; 83036; 96127; 99212; 99395

== ENCOUNTER 2025-04-10 14:02 | Outpatient (REF) | payer OTHER, SELFPAY ==
[2025-04-10 15:28] LABS: MANUAL DIFF FLAG NO
[2025-04-10 15:58] LABS: Basophils Absolute Auto 0.1 X10*3/uL (0.0-0.2); Basophils Percent Auto 0.6 % (0-2); Eosinophils Absolute Auto 0.2 X10*3/uL (0.0-0.4); Eosinophils Percent Auto 2.1 % (0-4); Hematocrit 36.4 % (37.0-47.0); Hemoglobin 12.1 g/dl (12.0-16.0); Imm Gran Abs Auto 0.02 X10*3/uL (0.00-0.03); Imm Gran Pct Auto 0.2 % (0.0-0.4); Lymphocytes Absolute Auto 2.9 X10*3/uL (1.2-4.9); Mean Corpuscular HGB Conc 33.2 g/dl (31.0-35.0); Mean Corpuscular Hemoglobin 26.7 pg (27.0-33.0); Mean Corpuscular Volume 80.4 fL (80.0-98.0); Mean Platelet Volume 9.7 fL (9.4-12.3); Monocytes Absolute Auto 0.4 X10*3/uL (0.1-1.2); Monocytes Percent Auto 4.9 % (2-11); Neutrophils Percent Auto 58.2 % (45-73); Platelet Count 339 X10*3/uL (160-400); Red Blood Count 4.53 X10*6/uL (4.20-5.50); White Blood Count 8.6 X10*3/uL (4.8-10.8)
[2025-04-10 16:30] LABS: C Reactive Protein 1.38 mg/dL (< or = 0.50); Iron 67 mcg/dL (30-160); Percent Iron Saturation 23 % (15-50); Total Iron Binding Capacity 297 mcg/dL (228-428); Unsaturated Iron Binding 230 ug/dL
[2025-04-10 16:45] LABS: TSH reflex Free T4 0.86 uIU/mL (0.32-4.0)
[2025-04-11 16:13] LABS: Transglutaminase IgA <1.0 U/mL
== END 2025-04-10 14:03 | disposition home or self-care (01) ==
LOC: HO.LAB 14:02
PROVIDERS: PCP Nurse Practitioner Family; Visit Provider Nurse Practitioner Family
DX: K58.2 Mixed irritable bowel syndrome (principal)
CPT/HCPCS: 36415; 83540; 84443; 85025; 86140; 86364; 99202

== ENCOUNTER 2025-04-10 14:02 | Outpatient (AMB) | payer OTHER, SELFPAY ==
--- NOTE | 2025-04-10 14:07 | A.OFFVIS_ITS ---
Vital Signs 04/10/25 14:13 Height 5 ft 9 in Weight 300 lb BMI 44.3 BP 130/74 Blood Pressure Location Lt brachial Position Sitting Pulse 73 Pulse Oximetry (%) 96 Oxygen Delivery Method Room Air Intake Visit Reasons: Mixed IBS Intake Note: Patient new consult for IBS. Patient cc: abdominal bloating ?, GERD, between diarrhea and constipation. Denies any other GI issues. Marketing Campaign Analyst Required: No Accompanied by: Self / Same As Patient Allergies nectarine Allergy (Severe, Unverified 04/10/25 16:05) Swelling Medication List - Last Reconciled 04/10/25 by Crystal Orr CNP albuterol sulfate 90 mcg/actuation 2 inhalations inhalation Q6H PRN baclofen 10 mg PO BID PRN desog-e.estradiol/e.estradiol 0.15-0.02 mgx21 /0.01 mg x 5 1 tab PO DAILY diclofenac sodium 50 mg PO Q12H PRN dicyclomine 10 mg PO QID PRN HPI HPI Mixed IBS: Details: Patient is a 25-year-old female with PMH of morbid we obese, MDD and ANTONELLA. Referred by PCP for further evaluation of stool changes. 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 Bowel movements are lengthy, sometimes taking up to 2 hours, occurring up to 4 times daily. Symptoms have progressively worsened, causing significant pain described as rhythmic, contraction-like cramps. Pain can be incapacitating and is often relieved partially by defecation; however, pain severity varies. Christa experiences alternating constipation and loose stools without a clear dietary trigger, as a 6-month food journal showed no patterns. Gluten-free trials worsened symptoms, but dairy could be a potential issue but not confirmed. Pain severity typically ranks high, causing substantial disruptions to daily activities. Symptoms can be so severe as to disrupt work, theater, and daily life. Previous GI eval locally around 2018, included workup for Crohn?s, UC, and celiac?IBD and celiac ruled out, IBS dx given but not definitive. Multiple GI meds trialed at that time w/ no benefit or worsened sx. Recent med likely dicyclomine provided initial relief, but effect waned after 1?2 mo; pt discontinued. No hx of GI bleeding, but does not always inspect stool. Reports infrequent nausea approx 1?2x/mo, no vomiting, frequent regurgitation (1?2x/wk), rare heartburn, and appetite suppression during flares. Sx exace rbated by stress/anxiety; recent significant psychosocial stressors (mother?s psychiatric illness, caregiving responsibilities). Awaiting initiation of therapy. Lifestyle changes ongoing: reducing sugar, increasing water, cutting back soda, and increasing activity via theater/dance. No clear family hx of GI malignancy; half-sister (not blood-related) w/ Crohn?s. Nutrition evaluation pending. Patient denies: fever/chills, vomiting, dysphasia, unintentional wt loss or melena/hematochezia. Social History - Diet: 1 bottle water + 2?3 seltzer/day, occasional Gatorade, low sugar, reduced soda (now 1?2x/wk), no clear gluten/dairy pattern, healthy and ?junk? 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 [facility] Medical History (Updated 04/10/25 @ 15:56 by Crystal Orr CNP) LLL pneumonia Persistent disorder of initiating or maintaining wakefulness IGTN (ingrowing toe nail) Surgical History H/O oral surgery Family History Mother Mental disorder HTN (hypertension) Diabetes Thyroid disorder Psychiatric disorder Father Asthma Maternal Grandfather HTN (hypertension) Diabetes Other Substance abuse Social History Housing: House Housing Other:: duplex Alcohol intake: current Alcohol intake frequency: holidays/special occasions only Patient Tobacco Use Status: Current someday Tobacco user Years Smoked: Less then a year, smokes occasionally e-Cigarette/Vaping Use: Never Used Second Hand Smoke Exposure: No Substance Use Type: Marijuana service: No Current occupational status: employed Current occupation: [employer] Current occupational exposures/hazards: No Cognitive needs: No Hearing needs: No Vision needs: No Female Reproductive History Menstrual Age of Menarche: 12 Review of Systems Const Reports as per HPI ENT Reports as per HPI Card Reports as per HPI Resp Reports as per HPI GI Reports as per HPI Reports as per HPI Physical Exam Vital Signs: Last Vital Signs Pulse 73 04/10/25 14:13 BP 130/74 04/10/25 14:13 Pulse Ox 96 04/10/25 14:13 Oxygen Delivery Method Room Air 04/10/25 14:13 BMI result Body Mass Index 44.3 Const General: healthy appearing, no acute distress and well developed Orientation/consciousness: patient oriented x3 HEENT Head: Yes normal to inspection, Yes normocephalic and Yes atraumatic Face and sinus: Yes normal facial exam Eyes General: appearance normal, both eyes and all related structures Neck Neck: Yes normal visual inspection Resp Effort & Inspection: normal respiratory effort, able to speak in complete sentences, no tracheal deviation and symmetric chest movement Auscultation: clear to auscultation bilaterally Cardio Jugular venous distension: no JVD Rate: regular rate Rhythm: regular rhythm Heart sounds: S1 normal heart sound present, S2 normal heart sound present, no gallops and no murmurs GI Inspection: Yes normal to inspection, No distended and Yes obesity Palpation (GI): Soft to palpation, not firm, nontender and No hepatosplenomegaly present Auscultation: Hypoactive bowel sounds present Neuro General: patient oriented x3 Gait exam (Neuro): Normal gait present Psych Appearance: grossly normal Mental Status: mental status grossly normal Speech and movement: Normal speech and movement present Affect: normal affect Attitude: cooperative Thought process: Normal thought process present Thought content: Normal thought content present Insight: Good insight present (Psych) Judgement: Good judgement present (Psych) Results Reviewed Results Reviewed: Laboratory Tests 02/16/24 09/20/24 01/21/25 12:10 10:03 12:23 Sodium 140 Potassium 4.0 Chloride 108 Carbon Dioxide 24 Anion Gap 12 BUN 8 L Creatinine 0.75 Estimated GFR > 60 Random Glucose 127 H Hgb A1c (Clinic) 6.3 H Total Bilirubin 0.1 AST 15 ALT 11 Alkaline Phosphatase 61 Total Protein 7.2 Albumin 3.8 TSH 0.97 Assessment & Plan Assessment & Plan (1) IBS (irritable bowel syndrome): Code(s): K58.9 - Irritable bowel syndrome, unspecified Category: Medical Qualifiers: Irritable bowel syndrome type: with both diarrhea and constipation Qualified Code(s): K58.2 - Mixed irritable bowel syndrome Plan: Chronic, alternating constipation/diarrhea, cramping abd pain, subjective negative prior IBD/celiac w/u, sx exacerbated by stress, no alarm features Additional Tests: - CBC, CMP, TSH, celiac panel, CRP - Stool studies (inflammation, infection) - Consider imaging (given chronicity, mixed pattern, incomplete family hx) Medications: - Start fiber supplement (tablet form) - Daily Miralax (adjust prn for stool consistency) - Consider TCA or SSRIs (pending further review for IBS/pain/anxiety/depression) Lifestyle Modifications: - Begin low FODMAP diet, continue food journal - Increase physical activity (150 min/week, as tolerated) - Hydration optimization, reduce carbonation if possible Recommended referrals to discuss with PCP -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2 - Mixed irritable bowel syndrome Calprotectin, Fecal Today K58.2 - Mixed irritable bowel syndrome TSH reflex Free T4 Today K58.2 - Mixed irritable bowel syndrome Complete Blood Count Auto Diff Today K58.2 - Mixed irritable bowel syndrome IRON PROFILE Today K58.2 - Mixed irritable bowel syndrome Transglutaminase IgA Today K58.2 - Mixed irritable bowel syndrome Ova and Parasite Today K58.2 - Mixed irritable bowel syndrome Medications: New polyethylene glycol 3350 (Miralax) Take 17G (one cap full) daily with 8oz of water 17 grams PO DAILY 30 days 238 grams 2RF constipation methylcellulose (laxative) (Fiber Laxative (methylcellulose)) Take 1 tab twice a day 500 mg PO BID 180 tabs 3RF Discontinued dicyclomine Discontinued Reason: Patient no longer taking 10 mg PO QID PRN 120 caps 1RF abdominal pain Coding Level of Care Code New Pt New Pt Level 5 (73682) Patient Type New Diagnoses Irritable bowel syndrome with both constipation and diarrhea K58.2 Irritable bowel syndrome type: with both diarrhea and constipation
[2025-04-10 14:13] VITALS: BP 130/74; PULSE 73; O2SAT 96; BMI 44.3
--- OUTSIDE RECORDS SUMMARY | 2025-04-10 14:13 | XMS_ITS | Clinical Summary ---
Author Organization [facility] Address [address] [place] [phone] Phone Care Team Providers Care Mouthpiece Maker Name Role Phone Karrie Dunham MD Primary [...] [facility] Pt/ in 2009 [id number], repeat in 2009 [id number]. Referred to [facility] 2009 and 2010.. [...] of *Heart Disease, Family history of *Sudden /[place] under 55, No family history of Strabismus, [...] of 2 - 2-dose series) 10/14/2011 04/14/2011 DTaP,Tdap,and Td Vaccines (7 - Td or Tdap) 03/04/2020 03/04/2010, 11/29/2002, 05/29/1999, Additional history exists Influenza Vaccines (#1) 2024 COVID-19 Vaccine ( season) 2024 HIB Vaccines Aged Out 1998, 05/13, 1998 No longer eligible based on patient's age to complete this topic Hepatitis B Vaccines Completed 1998, 1998, 1998 IPV Vaccines Completed 11/29/2002, 01/11, 1998, Additional history exists MMR Vaccines Completed 11/29/2002, 1999 Varicella Vaccines Completed 09/18/2007, 1999 Meningococcal Vaccine Aged Out 04/14/2011 No dar maged eligible based on patient's age to complete this topic HPV Vaccines Aged Out No longer eligi ble based on patient's age to complete this topic Men B Vaccine Aged Out No longer elig ible based on patient's age to complete this topic Pneumococcal Vaccine Aged Out No long er eligible based on patient's age to complete this topic [facility] [place] [id number] [facility] Care Teams Mouthpiece Maker Relationship Specialty Start Date End Date Karrie Dunham MD PCP - General 06/23/17
== END 2025-04-10 15:09 | disposition home or self-care (01) ==
LOC: HO.HGI 14:03
PROVIDERS: PCP Nurse Practitioner Family; Visit Provider Nurse Practitioner Family
DX: K58.2 Mixed irritable bowel syndrome (principal)
CPT/HCPCS: 99205

== ENCOUNTER 2025-07-31 13:39 | Outpatient (AMB) | payer OTHER, SELFPAY ==
--- NOTE | 2025-07-31 13:47 | A.OFFPC_ITS ---
Vital Signs 07/31/25 13:51 Height 5 ft 9 in Weight 287 lb BMI 42.4 BP 132/70 Blood Pressure Location Lt brachial Position Sitting Respiration 12 Pulse 62 Pulse Source Pulse Oximeter Temp 97.9 F Temp Source Oral Pulse Oximetry (%) 98 Oxygen Delivery Method Room Air Intake Visit Reasons: 6 mo mood/metabolic syndrome Intake Note: Follow up on mood and metabolic syndrome. Patient is requesting a cpe. Due Diligence Coordinator Required: No Allergies nectarine Allergy (Severe, Verified 07/31/25 14:03) Swelling Medication List - Last Reconciled 07/31/25 by Mayra Luis, [facility]- albuterol sulfate 90 mcg/actuation 2 inhalations inhalation Q6H PRN baclofen 10 mg PO BID PRN desog-e.estradiol/e.estradiol 0.15-0.02 mgx21 /0.01 mg x 5 1 tab PO DAILY diclofenac sodium 50 mg PO Q12H PRN methylcellulose (laxative) (Fiber Laxative (methylcellulose)) 500 mg PO BID polyethylene glycol 3350 (Miralax) 17 grams PO DAILY 30 days Tobacco use date assessed: 07/31/25 Dental Screening Dental Screen Date: 07/31/25 Did you have a dental visit in the last 12 months?: Yes Did you have a dental problem in the last 6 months where you did not have access to dental care?: No Was dental information given to patient?: Patient has dentist HPI HPI Comments History of Present Illness Details 25-year-old female with obesity, MDD, GA D, IBS, TMJ R , prediabetes, metabolic syndrome, LLL PNA (08/2024), marijuana use, HLD Social: 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 Needs OCP refilled. Sent today. Prediabetes- intentional wt loss, A1c today 5.9, was 6.3 cut out soda and limiting sugar. IBS - went to GI. Last visit March/April. Next visit August. MDD/ANTONELLA - started therapy; not a good match. At [facility] currently. She will ask about getting new therapist. If this does not work, advised to let me know. And i can place a new referral. TMJ did not get into ENT. Less frequent episodes. Jaw still cracks all the time. Still needs to see them about her tonsils. Advised to cont to call. Podiatry - no active issues; ROS: - Psychiatric: Reports disconnection wit h current therapist. Denies effective therapeutic progress. - Endocrine: Reports dietary modificatio n for prediabetes. - Gastrointestinal: Denies recent gastro symptoms. Reports current consultation with a GI specialist. - Musculoskeletal: Reports TMJ with less frequent symptoms. - Ears, Nose, and Throat: Reports chroni c tonsillitis episodes when traveling. - Neurological: Denies recent TMJ flare- up pain, though describes jaw cracking. Physical Exam General: Well developed, well nourished, in no acute distress. Appears stated age. Head: Normocephalic, atraumatic. Eyes: Pupils are equal, round and reactive to light and accommodation. Conjunctivae are clear. Vision grossly normal. TMJ clicking bilat Throat: uvula midline, tonsils grade +1, managing secretions. Lungs: Clear to auscultation bilaterally. No rales, rhonchi or wheeze noted. Good air flow in all wood. Heart: Regular rate and rhythm. No murmurs, click, rubs or gallops are noted. Neurologic: Gait and station normal. Cranial Nerves 2-12 intact. Motor strength grossly symmetrical and intact. No sensory loss. Balance normal. Psych: Normal eye contact, affect and mood appropriate, and normal interactions. Patient is alert and appropriate to context. Discussion: I discussed with the patient that her current A1c level indicates improved glycemic control. The possibility of antidepressant medication that may also benefit her gastrointestinal symptoms was acknowledged. We reviewed concerns regarding her current therapy experience and alternative counseling options. I noted her plans to contact the podiatry service for foot pain management now available within our practice and to continue engaging with the ENT department despite current access issues. We addressed her medication management for TMJ and ensured her prescriptions were current. I administered the tetanus booster vaccine, which was due.. Plans for GI follow-up and potential enhancements in her therapy pool were highlighted. I encouraged ongoing monitoring of her diet and weight management, given the reduction in A1c. Lastly, I reiterated the importance of seeking alternatives if her current mental health treatment does not improve. Patient was given time to ask questions. All questions were answered to their satisfaction. 1. Prediabetes - Continue dietary adherence. - Monitor A1c improvements. 2. Depression and Anxiety - Seek alternative therapy. - Possible new antidepressants. 3. Irritable Bowel Syndrome - Maintain GI plan. 4. Temporomandibular Joint Disorder - Continue baclofen & diclofenac PRN. - Refill medications. - ENT referral 5. Chronic Tonsillitis - Follow-up with ENT advised. 6. IGTN, recurrent, L - In-practice podiatry referral given. Tdap admin. Declined flu. RTO January for CPE, labs 1 week before. - Continue diet changes for prediabetes. - Seek a new therapist if no progress by next session. - Follow up with GI in August and submi t stool samples. - Keep using medications as needed for T MJ. - Contact and visit the new practice pod iatrist. - Get ENT follow-up for tonsils if avail able. Consent was obtained from the patient for the administration of the tetanus vaccine after discussing that it was overdue. I explained the benefits of the vaccine and the risks of tetanus, and she agreed to the administration. Consent was also implied for renewing prescriptions and initiated referrals as implied by the patient's continued engagement with treatment. Patient was informed and verbally consented to the use of an ambient scribe for clinic note documentation during this visit. Total time spent caring for the patient today was 40 minutes. This includes time spent before the visit reviewing the chart, time spent during the visit, and time spent after the visit on documentation, reviewing laboratory results, diagnostic imaging, medications, performing a medically necessary evaluation, counseling on diagnoses, care coordination, ordering appropriate tests, ordering appropriate medications, review of tests performed by other providers, reporting test results with the patient, communication with other healthcare providers. [facility] Medical History (Updated 07/31/25 @ 14:32 [facility] IGTN (ingrowing toe nail) LLL pneumonia Persistent disorder of initiating or maintaining wakefulness Surgical History H/O oral surgery Family History Mother Mental disorder HTN (hypertension) Diabetes Thyroid disorder Psychiatric disorder Father Asthma Maternal Grandfather HTN (hypertension) Diabetes Other Substance abuse Social History Housing: House Housing Other:: duplex Alcohol intake: current Alcohol intake frequency: holidays/special occasions only Patient Tobacco Use Status: Current someday Tobacco user Years Smoked: Less then a year, smokes occasionally e-Cigarette/Vaping Use: Never Used Second Hand Smoke Exposure: No Substance Use Type: Marijuana service: No Current occupational status: employed Current occupation: [employer], [employer] Current occupational exposures/hazards: No Cognitive needs: No Hearing needs: No Vision needs: No Female Reproductive History Menstrual Age of Menarche: 12 Questionnaire PHQ-9 Over the last 2 weeks, how often have you been bothered by any of the following problems? 1. Little interest or pleasure in doing things: not at all 2. Feeling down, depressed, or hopeless: not at all 3. Trouble falling or staying asleep, or sleeping too much: not at all 4. Feeling tired or having little energy: not at all 5. Poor appetite or overeating: not at all 6. Feeling bad about yourself - or that you are a failure or have let yourself or your family down: not at all 7. Trouble concentrating on things, such as reading the newspaper or watching television: not at all 8. Moving or speaking so slowly that other people could have noticed. Or the opposite - being so fidgety or restless that you have been moving around a lot more than usual: not at all 9. Thoughts that you would be better off or of hurting yourself in some way: not at all Total score: 0 Depression Screening Interpretation: Negative Depression Screening Done: Yes 89919 - PHQ-9 Billing: Yes Source: Developed by Drs. Yahir Rico, Zenobia Nicholson, Reed Soria and colleagues, with an educational leonard from [employer]. Thrive Questionnaire Date Thrive assessed: 01/20/25 I am a: Patient What is your living situation today?: I have a steady place to live Within the past 12 months, did the food you bought not last and you didn't have the money to get more?: Never true Within the past 12 months, did you worry whether your food would run out before you got money to buy more?: Never true Do you have trouble paying for medicines?: No Do you have trouble getting transportation to medical appointments?: No Do you have trouble paying your heating and electricity bill?: No Do you have trouble taking care of your child, family member or friend?: No Do you have trouble with day-to-day activities such as bathing, preparing meals, shopping, managing finances, etc.?: No Are you currently unemployed and looking for a job?: I choose not to answer this question Are you interested in more education?: I choose not to answer this question Please select the resources that you would like help with: None Currently or been in a relationship where the following occur: No concerns reported THRIVE Score: 0 ANTONELLA-7 AMB Questionnaire ANTONELLA-7 Date ANTONELLA - 7 assessed: 07/31/25 Feeling nervous, anxious, or on edge: 0 = Not at all Not being able to stop or control worryin = Not at all Worrying too much about different things: 0 = Not at all Trouble relaxin = Not at all Being so restless that it is hard to sit still: 0 = Not at all Becoming easily annoyed or irritable: 0 = Not at all Feeling afraid as if something awful might happen: 0 = Not at all Total ANTONELLA-7 score (0-4 normal; 5-9 mild; 10-14 moderate; 15-21 severe): 0 Source: Developed by Drs. Yahir Rico, Zenobia Nicholson, Reed Soria and colleagues, with an educational leonard from [employer]. ANTONELLA-7 Assessment Billing ANTONELLA-7 Assessment Tool: ANTONELLA-7 Assessment 47075 Physical exam (Primary Care) Vital Signs: Last Vital Signs Temp 97.9 F 07/31/25 13:51 Pulse 62 07/31/25 13:51 Resp 12 07/31/25 13:51 BP 132/70 07/31/25 13:51 Pulse Ox 98 07/31/25 13:51 Oxygen Delivery Method Room Air 07/31/25 13:51 BMI result Body Mass Index 42.4 Tobacco/Smoking Status: Tobacco use Status Tobacco use date assessed 07/31/25 07/31/25 13:50 Patient Tobacco Use Status Current someday Tobacco 07/31/25 13:50 e-Cigarette/Vaping Use Never Used 07/31/25 13:50 PHQ-9: PHQ-9 Score PHQ-9: Total score 0 07/31/25 14:05 Depression Screening Interpretation: Negative Thrive Assessment: Date of Thrive Assessment Date Thrive assessed 01/20/25 07/31/25 13:50 Currently or been in a relationship where the following occur: No concerns reported Results AMB Hemoglobin A1c AMB Hemoglobin A1c 5.9 % Last Edit by Suyapa Michelle MA on 07/31/25 14:18 Immunizations Boostrix Tdap 2.5 Lf unit-8 mcg-5 Lf/0.5 mL intramuscular syringe Performing Provider: HERMAN Miller Performing Location: [facility] Administered by: Suyapa Michelle MA on 07/31/25 14:27 Dose Route Admin Location Dispensed Lot Number Expiration Date [employer] 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 Swamp 0.5 mL IM Right Deltoid 0.5 mL [id number] 09/17/27 53828-812-08 [employer] luma-idITHKLINE Total Dispensed Waste 0.5 mL 0 % VIS Given Date VIS Provided VIS Publication Date 07/31/25 Single Vaccine 21 Eligibility Eligibility Date Funding Source Not [facility] Eligible 07/31/25 Private Results Reviewed Results Reviewed: Laboratory Last Values Hgb A1c (Clinic) 5.9 % (4.0-6.0) 07/31/25 14:12 Coding Level of Care Code Est Pt Level 5 (65846) Complex EM visit Add On G2211 Diagnoses IGTN (ingrowing toe nail) L60.0 Need for Tdap vaccination Z23 Influenza vaccination declined Z28.21 Immunization counseling Z71.85 Mild episode of recurrent major depressive disorder F33.0 Major depression episode severity: mild Metabolic syndrome E88.810 Arthralgia of right temporomandibular joint M26.621 Laterality: right Enlarged tonsils J35.1 Irritable bowel syndrome with both constipation and diarrhea K58.2 Irritable bowel syndrome type: with both diarrhea and constipation Additional Codes ANTONELLA-7 Assessment Billing - ANTONELLA-7 Assessment Tool: ANTONELLA-7 Assessment 44104 ([id number]) PHQ-9 - 26340 - PHQ-9 Billing: Yes ([id number]) Assessment & Plan Assessment & Plan (1) IGTN (ingrowing toe nail): Comment: recurrent refer to podiatry Code(s): L60.0 - Ingrowing nail Category: Medical (2) Need for Tdap vaccination: Code(s): Z23 - Encounter for immunization Category: Medical (3) Influenza vaccination declined: Code(s): Z28.21 - Immunization not carried out because of patient refusal Category: Medical (4) Immunization counseling: Code(s): Z71.85 - Encounter for immunization safety counseling Category: Medical (5) MDD (major depressive disorder), recurrent episode: Comment: Not currently on medications. Referred to counseling. Code(s): F33.9 - Major depressive disorder, recurrent, unspecified Category: Medical Qualifiers: Major depression episode severity: mild Qualified Code(s): F33.0 - Ma abraham depressive disorder, recurrent, mild (6) Metabolic syndrome: Code(s): E88.810 - Metabolic syndrome Category: Medical (7) TMJ arthralgia: Comment: Effect in the right side. Refer to ENT for evaluation and treatment. rX for baclofen 10mg po BID PRN for pain and Diclofenac ER 50mg BID PRN pain Code(s): M26.629 - Arthralgia of temporomandibular joint, unspecified side Category: Medical Qualifiers: Laterality: right Qualified Code(s): M26.621 - Arthralgia of right temporomandibular joint (8) Enlarged tonsils: Comment: ent referral Code(s): J35.1 - Hypertrophy of tonsils Category: Medical (9) IBS (irritable bowel syndrome): Code(s): K58.9 - Irritable bowel syndrome, unspecified Category: Medical Qualifiers: Irritable bowel syndrome type: with both diarrhea and constipation Qualified Code(s): K58.2 - Mixed irritable bowel syndrome Plan . Orders: Orders TDaP Immunization Today Z23 - Encounter for immunization Comprehensive Met. Panel Today Z00.00 - Encounter for general adult medical examination without abnormal findings Lipid Panel Today Z00.00 - Encounter for general adult medical examination without abnormal findings Microalbumin, Random (w Creat) Today Z00.00 - Encounter for general adult medical examination without abnormal findings Vitamin B12 and Folate Today Z00.00 - Encounter for general adult medical examination without abnormal findings AMB Hemoglobin A1c Today Z13.9 - Encounter for screening, unspecified Complete Blood Count no Diff Today Z00.00 - Encounter for general adult medical examination without abnormal findings Hemoglobin A1c Today Z00.00 - Encounter for general adult medical examination without abnormal findings TSH reflex Free T4 Today Z00.00 - Encounter for general adult medical examination without abnormal findings Vitamin D 25-OH Total Today Z00.00 - Encounter for general adult medical examination without abnormal findings Referrals Podiatry Referral L60.0 - Ingrowing nail Medications: Refilled baclofen USE FOR TMJ PAIN SPARINGLY 10 mg PO BID PRN 20 tabs 0RF muscle spasm diclofenac sodium TAKE W FOOD; AVOID OTHER NSAIDS 50 mg PO Q12H PRN 30 tabs 0RF pain desog-e.estradiol/e.estradiol 0.15-0.02 mgx21 /0.01 mg x 5 start with menses 1 tab PO DAILY 84 tabs 2RF
[2025-07-31 13:51] VITALS: BP 132/70; PULSE 62; RESP 12; TEMP 36.6; O2SAT 98; BMI 42.4
--- OUTSIDE RECORDS SUMMARY | 2025-07-31 15:38 | XMS_ITS | Clinical Summary ---
Author Organization [facility] Address [address] [place] [phone] Phone Care Team Providers Care State Director Name Role Phone Karrie Dunham MD Primary [...] Hypertriglyceridemia 07/26/2012 Overview (11/28/2017): Onset date 07/26/2012; [facility] Peds Pt/ in 2009 [id number], repeat in 2009 [id number]. Referred to [facility] 2009 and 2010.. [...] of *Heart Disease, Family history of *Sudden /[place] under 55, No family history of Strabismus, [...] 49 04/18/2018 11:17 AM EDT Temperature 36.5 C (97.7 F) 03/27/2017 12:00 AM EDT Respiratory Rate - - Oxygen Saturation 97% [...] 03/04/2020 03/04/2010, 11/29/2002, 05/29/1999, Additional history exists HPV Vaccines (1 - 3-dose SCDM series) 2025 Influenza Vaccines (#1) 2025 COVID-19 Vaccine ( season) 2025 HIB Vaccines Aged Out 1998, 05/13, 1998 [...] patient's age to complete this topic Insurance [facility] [employer] Care Teams State Director Relationship Specialty Start Date End Date Karrie Duhnam MD PCP - General 06/23/17
--- OUTSIDE RECORDS SUMMARY | 2025-07-31 15:38 | XMS_ITS | Encounter Summary ---
Author Organization [facility] Address [address] [place] [phone] Phone Care Team Providers Care Silo Painter Name Role Phone Karrie Dunham MD Primary Care Provider Unava ilable Encounter Details Date Type Department Care Team (Late st Contact Info) Description 06/07/2016 Documentation [facility] Family Medicine [address] [place] [address] Family Medicine, Physician [address] [place] [address] Social History Tobacco Use Types Packs/Day Years [...] on filedocumented in this encounter Care Teams Silo Painter Relationship Specialty Start Date End Date Karrie Dunham MD PCP - General 06/23/17 documented as of this encounter
--- OUTSIDE RECORDS SUMMARY | 2025-07-31 15:38 | XMS_ITS | Encounter Summary ---
Author Organization [facility] Address [address] [place] [phone] Phone Care Team Providers Care Database Admin Name Role Phone Karrie Dunham MD Primary Care Provider Unava ilable Encounter Details Date Type Department Care Team (Late st Contact Info) Description 04/06/2017 Documentation [facility] [place] Family Medicine [address] [place], [place] [phone] Family Medicine, Physician [address] [place] [address] Social History Tobacco Use Types Packs/Day Years [...] on filedocumented in this encounter Care Teams Database Admin Relationship Specialty Start Date End Date Karrie Dunham MD PCP - General 06/23/17 documented as of this encounter
--- OUTSIDE RECORDS SUMMARY | 2025-07-31 15:38 | XMS_ITS | Encounter Summary ---
Author Organization [facility] Address [address] [place] [phone] Phone Care Team Providers Care Er Tech Name Role Phone Karrie Dunham MD Primary Care Provider Unava ilable Encounter Details Date Type Department Care Team (Late st Contact Info) Description 06/29/2017 Conversion Encounter [facility] - [address] [phone] Social History Tobacco Use Types Packs/Day Years [...] on filedocumented in this encounter Care Teams Er Tech Relationship Specialty Start Date End Date Karrie Dunham MD PCP - General 06/23/17 documented as of this encounter
== END 2025-07-31 14:27 | disposition home or self-care (01) ==
LOC: HO.HMCFM 13:40
PROVIDERS: PCP Nurse Practitioner Family; Visit Provider Nurse Practitioner Family
DX: L60.0 Ingrowing nail (principal); Z23 Encounter for immunization; Z28.21 Immunization not carried out because of patient refusal; Z71.85 Encounter for immunization safety counseling; F33.0 Major depressive disorder, recurrent, mild; E88.810 Metabolic syndrome; M26.621 Arthralgia of right temporomandibular joint; J35.1 Hypertrophy of tonsils; K58.2 Mixed irritable bowel syndrome; Z13.9 Encounter for screening, unspecified

== ENCOUNTER → 2025-07-31 13:39 | Outpatient (BNVA) | payer OTHER, SELFPAY | PROVIDERS: PCP Nurse Practitioner Family; Visit Provider Nurse Practitioner Family | DX: L60.0 Ingrowing nail (principal); F41.9 Anxiety disorder, unspecified; F33.0 Major depressive disorder, recurrent, mild; E88.810 Metabolic syndrome; M26.621 Arthralgia of right temporomandibular joint; J35.1 Hypertrophy of tonsils; K58.2 Mixed irritable bowel syndrome; Z23 Encounter for immunization; Z71.85 Encounter for immunization safety counseling | CPT/HCPCS: 83036; 90471; 90715; 96127; 99212 ==

== ENCOUNTER 2025-09-11 13:13 | Outpatient (AMB) | payer OTHER, SELFPAY ==
[2025-09-11 13:20] VITALS: BMI 42.8
--- NOTE | 2025-09-11 13:20 | MHC.OFFVIS ---
Vital Signs 09/11/25 13:20 Height 5 ft 9 in Weight 290 lb BMI 42.8 Intake Visit Reasons: ingrown nail Intake Note: Christa is 25 year old female who presents to the office today as a new patient visit referred by her PCP Mayra Luis for ingrown nail. 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 Patient mentions she has had a home visit with a foot clinical care coordinator 2 years ago where the nail was trimmed. Ingrown's are located on the lateral border of great toes Allergies nectarine Allergy (Severe, Verified 09/11/25 13:20) Swelling javi's vodka Allergy (Uncoded 09/11/25 13:22) Hives Medication List - Last Reconciled 09/11/25 by Maritza Nichols DPM albuterol sulfate 90 mcg/actuation 2 inhalations inhalation Q6H PRN baclofen 10 mg PO BID PRN desog-e.estradiol/e.estradiol 0.15-0.02 mgx21 /0.01 mg x 5 1 tab PO DAILY diclofenac sodium 50 mg PO Q12H PRN HPI Comments Details: The patient is a 25-year-old female with a PMH as seen below presenting with concerns related to ingrown toenails. She reports this issue has been persistent for several years, mainly affecting the lateral aspects of the hallucal nails. She recounts a past intervention approximately ten years ago, where a section of the nail was trimmed to promote better growth, providing temporary symptom relief. The patient has experienced swelling and redness intermittently, particularly to the lateral nail borders, leading to discomfort while wearing shoes or socks. Additionally, she recalls prior episodes of minor bleeding and watery discharge, although no recent pus has been detected. Patient states she also experiences discomfort to the medial border of the left 2nd toenail. Since the last procedure, the patient has refrained from pedicures. She previously attempted conservative treatments such as soaking in Epsom salt and warm water, which have not been tried recently. She denies any recent pedal injuries. Denies any other pedal concerns. [facility] Medical History (Updated 09/11/25 @ 13:36 by Maritza Nichols DPM) Pain in toes of both feet Ingrowing nail Cellulitis of great toe of left foot Cellulitis of great toe of right foot LLL pneumonia Persistent disorder of initiating or maintaining wakefulness IGTN (ingrowing toe nail) Surgical History H/O oral surgery Family History Mother Mental disorder HTN (hypertension) Diabetes Thyroid disorder Psychiatric disorder Father Asthma Maternal Grandfather HTN (hypertension) Diabetes Other Substance abuse Social History Housing: House Housing Other:: duplex Alcohol intake: current Alcohol intake frequency: holidays/special occasions only Patient Tobacco Use Status: Current someday Tobacco user Years Smoked: Less then a year, smokes occasionally e-Cigarette/Vaping Use: Never Used Second Hand Smoke Exposure: No Substance Use Type: Marijuana service: No Current occupational status: employed Current occupation: [employer] Current occupational exposures/hazards: No Cognitive needs: No Hearing needs: No Vision needs: No Female Reproductive History Menstrual Age of Menarche: 12 Review of Systems Const Details: - Integumentary: Reports swelling and redness with ingrown toenails to B/L hallucal nails with mild discomfort to the left 2nd toenail. All systems reviewed & are unremarkable except as noted in HPI and below Physical Exam Vital Signs: BMI result Body Mass Index 42.8 Extrem Other: B/L LE Focused Physical Exam: Derm: Increased incurvation noted to the lateral nail borders of B/L hallucal nails consistent with an ingrown toenails. No erythema noted. Slightly increased incurvation to the medial nail border of the left 2nd toenail. No ecchymosis or discoloration noted. No purulence, drainage, or bleeding noted. Vasc: DP/PT pulses palpable. CFT < 3 secs. Temp gradient warm to warm. Pedal hair present. No varicosities noted. Mild edema noted to the halluces in the area of the ingrown nails. Neuro: Protective sensations grossly intact. MSK: Pain on palpation to the lateral nail borders of B/L halluces. No crepitus or fluctuance noted. ROM of the forefoot, hindfoot, and ankles WNL. Nonantalgic gait unassisted noted. Office Procedures AMB Debridement/Avulsion Podia Details: Procedure: Right hallux lateral border partial nail avulsion with matrixectomy Cleansed the right hallux with an alcohol swab and injected 15 cc of 1% lidocaine plain in a hallux block fashion. Next, a tourniquet was applied and the right hallux/nail was cleansed with betadine. Next, attention was drawn to the lateral border of the right hallucal nail where a freer was used to free up the nail from the nail bed. Next, an ugandan anvil was used to trim the lateral nail border and a hemostat was used to remove the offending nail border. A currette was used to inspect and remove any remaining spicules. Next, 4 phenol swabs were applied to the lateral nail border for 30 seconds each. An alcohol swab was applied to the lateral border and once dried, triple antibiotic ointment, a bandaid, 2x2 gauze, and coban was applied to the right hallux. After care instructions were provided. 27740 Nail matrixectomy Procedure code (CPT) selection complete Office Meds lidocaine HCl 10 mg/mL (1 %) injection solution Performing Provider: Maritza Nichols DPM Performing Location: [facility] Administered by: Maritza Nichols DPM on 09/14/25 14:42 Dose Route Admin Location Dispensed Lot Number Expiration Date [facility] Registered Public Health Nurse 15 mL subcut 15 mL [id number] HOSPIRA/PFIZER Total Dispensed Waste 15 mL 0 % Triple Antibiotic 3.5 mg-400 unit-5,000 unit topical ointment packet Performing Provider: Maritza Nichols DPM Performing Location: [facility] Administered by: Maritza Nichols DPM on 09/14/25 14:42 Dose Route Admin Location Dispensed Lot Number Expiration Date [facility] Registered Public Health Nurse 1 appl topical 1 appl [id number] PADAGIS povidone-iodine 10 % topical swab Performing Provider: Maritza Nichols DPM Performing Location: [facility] Administered by: Maritza Nichols DPM on 09/14/25 14:42 Dose Route Admin Location Dispensed Lot Number Expiration Date [facility] Registered Public Health Nurse 2 appl topical 2 appl [id number] CEZAR BASHIR. ethyl chloride 100 % topical spray Performing Provider: Maritza Nichols DPM Performing Location: [facility] Administered by: Mairtza Nichols DPM on 09/14/25 14:42 Dose Route Admin Location Dispensed Lot Number Expiration Date [facility] Registered Public Health Nurse 1 appl topical 116 mL [id number] [employer] phenol 89 % topical swab Performing Provider: Maritza Nichols DPM Performing Location: [facility] Administered by: Maritza Nichols DPM on 09/14/25 14:42 Dose Route Admin Location Dispensed Lot Number Expiration Date [facility] Registered Public Health Nurse 4 appl topical 4 appl [id number] [facility] Assessment & Plan Assessment & Plan (1) Ingrowing nail: Code(s): L60.0 - Ingrowing nail Category: Medical (2) Cellulitis of great toe of left foot: Code(s): L03.032 - Cellulitis of left toe Category: Medical (3) Cellulitis of great toe of right foot: Code(s): L03.031 - Cellulitis of right toe Category: Medical (4) Pain in toes of both feet: Code(s): M79.674 - Pain in right toe(s); M79.675 - Pain in left toe(s) Category: Medical Plan Patient was informed and verbally consented to the use of an ambient scribe for clinic note documentation during this visit. I thoroughly explained the procedure of partial nail avulsion with matrixectomy to the patient. I instructed her on follow-up care, highlighting the importance of soaking the foot in Epsom salt and warm water, applying neosporin, and a bandaid after 24 hours. We also agreed to reassess the left foot in the subsequent visit to performe a partial nail avulsion with matrixectomy. - Conducted a partial nail avulsion with chemical matrixectomy to the right hallux lateral nail border with no incidence. - Advised patient to keep the bandage on for 24 hours and may start after care protocol after the 24 hours. - Advised patient to wear supportive shoe gear and to avoid tight fitting shoes. - Advised patient to avoid barefoot walking. - Patient is to monitor for signs of infection and was advised to call our office if symptoms worsen. RTC in 2 weeks and plan for PNA with matrixectomy to the left hallux at next visit. Orders: Orders AMB Debridement/Avulsion Podiatry 09/11/25 L03.031 - Cellulitis of right toe, L03.032 - Cellulitis of left toe, L60.0 - Ingrowing nail, M79.674 - Pain in right toe(s), M79.675 - Pain in left toe(s) Coding Level of Care Code New Pt Level 4 (81169) Diagnoses Ingrowing nail L60.0 Cellulitis of great toe of left foot L03.032 Cellulitis of great toe of right foot L03.031 Pain in toes of both feet M79.674; M79.675 CPT Codes Skin Debridement - CPT: 96913 Nail matrixectomy ([id number]) Time Spent (min) 75 Comment 30 mins for procedure
--- OUTSIDE RECORDS SUMMARY | 2025-09-11 16:10 | XMS_ITS | Clinical Summary ---
Author Organization [facility] Address [address] [place] [phone] Phone Care Team Providers Care Test Tube Maker Name Role Phone Karrie Dunham MD [...] (11/28/2017): Onset date 07/26/2012; [facility] Peds Pt/ in 2009 [id number], repeat in 2009 [id number]=314. Referred to [facility] 2009 and 2010.. [...] of *Heart Disease, Family history of *Sudden /ID under 55, No family history of Strabismus, [...] 2025 Influenza Vaccines (#1) 2025 COVID-19 Vaccine (2024- season) 2025 HIB Vaccines Aged Out 1998, [...] patient's age to complete this topic Insurance [facility] [employer] Care Teams Test Tube Maker Relationship Specialty Start Date End Date Karrie Dunham MD PCP - General 06/23/17
--- OUTSIDE RECORDS SUMMARY | 2025-09-11 16:10 | XMS_ITS | Encounter Summary ---
Author Organization [facility] Address [address] [place] [address] Phone Care Team Providers Care Medical Corps Officer Name Role Phone Karrie Dunham MD Primary Care Provider Unava ilable Encounter Details Date Type Department Care Team (Late st Contact Info) Description 06/07/2016 Documentation [facility] Family Medicine [address] [place] [address] Family Medicine, Physician [address] [place] [address] Social History Tobacco Use Types Packs/Day Years [...] on filedocumented in this encounter Care Teams Medical Corps Officer Relationship Specialty Start Date End Date Karrie Dunham MD PCP - General 06/23/17 documented as of this encounter
--- OUTSIDE RECORDS SUMMARY | 2025-09-11 16:10 | XMS_ITS | Encounter Summary ---
Author Organization [facility] Address [address] [place] [address] Phone Care Team Providers Care Machine Learning Intern Name Role Phone Karrie Dunham MD Primary Care Provider Unava ilable Encounter Details Date Type Department Care Team (Late st Contact Info) Description 06/29/2017 Conversion Encounter [facility] - [address] [address] Social History Tobacco Use Types Packs/Day Years [...] on filedocumented in this encounter Care Teams Machine Learning Intern Relationship Specialty Start Date End Date Karrie Dunham MD PCP - General 06/23/17 documented as of this encounter
--- OUTSIDE RECORDS SUMMARY | 2025-09-11 16:10 | XMS_ITS | Encounter Summary ---
Author Organization [facility] Address [address] [place] [address] Phone Care Team Providers Care Solar Sales Associate Name Role Phone Karrie Dunham MD Primary Care Provider Unava ilable Encounter Details Date Type Department Care Team (Late st Contact Info) Description 04/06/2017 Documentation [facility] Family Medicine [address] [place], [place] [id number] Family Medicine, Physician [address] [place] [address] Social History Tobacco Use Types Packs/Day Years [...] on filedocumented in this encounter Care Teams Solar Sales Associate Relationship Specialty Start Date End Date Karrie Dunham MD PCP - General 06/23/17 documented as of this encounter
== END 2025-09-11 14:45 | disposition home or self-care (01) ==
LOC: HO.HPODS 13:14
PROVIDERS: PCP Nurse Practitioner Family; Visit Provider Student in an Organized Health Care Education/Training Program
DX: L60.0 Ingrowing nail (principal); M79.674 Pain in right toe(s); M79.675 Pain in left toe(s); L03.032 Cellulitis of left toe; L03.031 Cellulitis of right toe
CPT/HCPCS: 11750; 99204

== ENCOUNTER → 2025-09-11 13:13 | Outpatient (BNVA) | payer OTHER, SELFPAY | PROVIDERS: PCP Nurse Practitioner Family; Visit Provider Student in an Organized Health Care Education/Training Program | DX: L60.0 Ingrowing nail (principal); L03.032 Cellulitis of left toe; L03.031 Cellulitis of right toe; M79.674 Pain in right toe(s); M79.675 Pain in left toe(s) | CPT/HCPCS: 11750; 99202; J2003 ==

== ENCOUNTER 2025-09-18 09:59 | Outpatient (AMB) | payer OTHER, SELFPAY ==
[2025-09-18 10:10] VITALS: BMI 42.8
--- NOTE | 2025-09-18 10:10 | A.OFFVIS_ITS ---
Vital Signs 09/18/25 10:10 Height 5 ft 9 in Weight 290 lb BMI 42.8 Intake Visit Reasons: big toe right foot possible infection Intake Note: Dea a 25 year old female who presents today for a follow up on her Partial nail avulsion of the right hallux on the medial border. Pt reports she has concerns of an infection forming.she has discoloration on injection site and she feels soreness in the toe. Patient reports she has a low grade fever of 100 last night Allergies nectarine Allergy (Severe, Verified 09/11/25 13:20) Swelling javi's vodka Allergy (Uncoded 09/11/25 13:22) Hives HPI Comments Details: The patient is a 25-year-old female with a PMH as seen below presenting for follow-up of right hallux partial nail avulsion with matrixectomy and skin irritation to the dorsum of the right foot. Patient states she has been adhering to the aftercare protocol. Patient had concerns of whether the PNA site was healing properly. She denies any pain to the right foot or hallux. Patient states she has noticed increased redness, itching, and slight burn to t he dorsum of the right foot in 1 of the areas of the injection site. She denies any purulence. Patient states she has noticed some drainage from the PNA site. She denies any new pedal injuries. Patient states she still experiences some pain to the left hallucal ingrown nail site, scheduled for partial nail avulsion to be performed at next follow-up. She denies any other pedal concerns. Patie nt states she recently had a fever of 100 degrees F and started taking Tylenol as of yesterday. [facility] Medical History (Updated 09/18/25 @ 10:29 by Maritza Nichols DPM) Dermatitis of right foot Pain in toes of both feet Ingrowing nail Cellulitis of great toe of left foot Cellulitis of great toe of right foot LLL pneumonia Persistent disorder of initiating or maintaining wakefulness IGTN (ingrowing toe nail) Surgical History H/O oral surgery Family History Mother Mental disorder HTN (hypertension) Diabetes Thyroid disorder Psychiatric disorder Father Asthma Maternal Grandfather HTN (hypertension) Diabetes Other Substance abuse Social History Housing: House Housing Other:: duplex Alcohol intake: current Alcohol intake frequency: holidays/special occasions only Patient Tobacco Use Status: Current someday Tobacco user Years Smoked: Less then a year, smokes occasionally e-Cigarette/Vaping Use: Never Used Second Hand Smoke Exposure: No Substance Use Type: Marijuana service: No Current occupational status: employed Current occupation: [employer] Current occupational exposures/hazards: No Cognitive needs: No Hearing needs: No Vision needs: No Female Reproductive History Menstrual Age of Menarche: 12 Review of Systems Const Details: - Integumentary: Reports redness to dorsum of right foot at previous injection site. Healing noted to partial nail avulsion with matrixectomy sites of the right hallux. - Constitutional: Reports fever of 100?F and feeling warm. Denies nausea and vomiting. All systems reviewed & are unremarkable except as noted in HPI and below Physical Exam Vital Signs: BMI result Body Mass Index 42.8 Extrem Other: B/L LE Focused Physical Exam: Derm: Localized Erythema noted to the dorsum of the right foot in the area of the webspace between 1st and 2nd metatarsals at previous injection site. No raised lesions or edema noted. Healing lateral border of the right hallux at the partial nail avulsion with matrixectomy site with no active drainage. No purulence or bleeding noted. Increased incurvation noted to the lateral nail borders of left hallucal nail consistent with an ingrown toenails. Slightly increased incurvation to the medial nail border of the left 2nd toenail. No ecchymosis or discoloration noted. No purulence, drainage, or bleeding noted. Vasc: DP/PT pulses palpable. CFT < 3 secs. Temp gradient warm to warm. Pedal hair present. No varicosities noted. Mild edema noted to the halluces in the area of the ingrown nails. Neuro: Protective sensations grossly intact. MSK: No pain on to the area of the injection sites are dorsum of the right foot. Mild sensitivity noted to the lateral border of the right hallucal nail. Pain on palpation to the lateral nail borders of left hallucal nail. No crepitus or fluctuance noted. ROM of the forefoot, hindfoot, and ankles WNL. Nonantalgic gait unassisted noted. Office Procedures AMB Podiatry Dressing Details of Procedure: Cleansed lateral border of right hallux nail (PNA with matrixectomy site) using sterile saline in 2 x 2 gauze. Applied triple antibiotic ointment and a Band- Aid to the right hallux. Additional procedure code (CPT) needed (67593) Assessment & Plan Assessment & Plan (1) Ingrowing nail: Code(s): L60.0 - Ingrowing nail Category: Medical (2) Cellulitis of great toe of left foot: Code(s): L03.032 - Cellulitis of left toe Category: Medical (3) Cellulitis of great toe of right foot: Code(s): L03.031 - Cellulitis of right toe Category: Medical (4) Pain in toes of both feet: Code(s): M79.674 - Pain in right toe(s); M79.675 - Pain in left toe(s) Category: Medical (5) Dermatitis of right foot: Code(s): L30.9 - Dermatitis, unspecified Category: Medical Plan Patient was informed and verbally consented to the use of an ambient scribe for clinic note documentation during this visit. I discussed with the patient the likely diagnosis of dermatitis to the injection site and the management plan, including the use of betamethasone cream to alleviate symptoms. We also talked about the importance of monitoring for any further reactions. The patient was advised to continue her current foot care routine and to follow up if symptoms persist or worsen. - Prescribed betamethasone cream to be applied to the site of dermatitis on the right foot. - Continue soaking the right foot in Epsom salt and warm water and applying Neosporin and a Band-Aid as previously instructed. - Patient may continue to soak the left foot in Epsom salt and warm water. - Monitor for any further reactions or signs of infection. - Avoid tight-fitting shoes and avoid barefoot walking. RTC on 09/30/25 for PNA with matrixectomy to left hallux. Orders: Orders AMB Podiatry Dressing Today L03.031 - Cellulitis of right toe, L60.0 - Ingrowing nail Medications: New betamethasone dipropionate 0.05% 1 appl topical DAILY PRN 15 grams 0RF skin irritation L30.9 - Dermatitis, unspecified Coding Level of Care Code Est Pt Level 4 (22939) Diagnoses Ingrowing nail L60.0 Cellulitis of great toe of left foot L03.032 Cellulitis of great toe of right foot L03.031 Pain in toes of both feet M79.674; M79.675 Dermatitis of right foot L30.9 CPT Codes Podiatry Dressing - All charges added?: Additional procedure code (CPT) needed ([id number]) Time Spent (min) 40
--- OUTSIDE RECORDS SUMMARY | 2025-09-18 11:29 | XMS_ITS | Encounter Summary ---
Author Organization [facility] Address [address] [place] [phone] Phone Care Team Providers Care Automotive Airconditioning Mechanic Name Role Phone Karrie Dunham MD Primary Care Provider Unava ilable Encounter Details Date Type Department Care Team (Late st Contact Info) Description 06/29/2017 Conversion Encounter [facility] - [address] [address] Social History Tobacco Use Types Packs/Day Years [...] on filedocumented in this encounter Care Teams Automotive Airconditioning Mechanic Relationship Specialty Start Date End Date Karrie Dunham MD PCP - General 06/23/17 documented as of this encounter
--- OUTSIDE RECORDS SUMMARY | 2025-09-18 11:29 | XMS_ITS | Clinical Summary ---
Author Organization [facility] Address [address] [place] [phone] Phone Care Team Providers Care Loss Prevention Investigator Name Role Phone Karrie Dunham MD Primary [...] Hypertriglyceridemia 07/26/2012 Overview (11/28/2017): Onset date 07/26/2012; [facility] Peds Pt/ in 2009 [id number]=320, repeat in 2009 [id number]=595. Referred to [facility] 2009 and 2010.. [...] of *Heart Disease, Family history of *Sudden /MS under 55, No family history of Strabismus, [...] patient's age to complete this topic Insurance [facility] FEDERAL Care Teams Loss Prevention Investigator Relationship Specialty Start Date End Date Karrie Dunham MD PCP - General 06/23/17
--- OUTSIDE RECORDS SUMMARY | 2025-09-18 11:29 | XMS_ITS | Encounter Summary ---
Author Organization [facility] Address [address] [place] [address] Phone Care Team Providers Care Senior Housekeeper Name Role Phone Karrie Dunham MD Primary Care Provider Unava ilable Encounter Details Date Type Department Care Team (Late st Contact Info) Description 06/07/[address] [facility] [place] [address] [place] [address] Family Medicine, Physician [address] [place] [address] Social History Tobacco Use Types Packs/Day Years [...] on filedocumented in this encounter Care Teams Senior Housekeeper Relationship Specialty Start Date End Date Karrie Dunham MD PCP - General 06/23/17 documented as of this encounter
--- OUTSIDE RECORDS SUMMARY | 2025-09-18 11:29 | XMS_ITS | Encounter Summary ---
Author Organization [facility] Address [address] [place] [phone] Phone Care Team Providers Care Drip Pumper Name Role Phone Karrie Dunham MD Primary Care Provider Unava ilable Encounter Details Date Type Department Care Team (Late st Contact Info) Description 04/06/2017 Documentation [facility] [place] [facility] Family Medicine [address] [place], [place] [phone] Family Medicine, Physician [address] [place] [address] Social History Tobacco Use Types Packs/Day Years [...] on filedocumented in this encounter Care Teams Drip Pumper Relationship Specialty Start Date End Date Karrie Dunham MD PCP - General 06/23/17 documented as of this encounter
== END 2025-09-18 10:30 | disposition home or self-care (01) ==
LOC: HO.HPODS 10:00
PROVIDERS: PCP Nurse Practitioner Family; Visit Provider Student in an Organized Health Care Education/Training Program
DX: L60.0 Ingrowing nail (principal); L03.032 Cellulitis of left toe; L03.031 Cellulitis of right toe; M79.674 Pain in right toe(s); M79.675 Pain in left toe(s); L30.9 Dermatitis, unspecified
CPT/HCPCS: 99024

== ENCOUNTER → 2025-09-18 09:59 | Outpatient (BNVA) | payer OTHER, SELFPAY | PROVIDERS: PCP Nurse Practitioner Family; Visit Provider Student in an Organized Health Care Education/Training Program | DX: L60.0 Ingrowing nail (principal); L03.032 Cellulitis of left toe; L03.031 Cellulitis of right toe; M79.674 Pain in right toe(s); M79.675 Pain in left toe(s); L30.9 Dermatitis, unspecified | CPT/HCPCS: 99212 ==

== ENCOUNTER 2025-09-30 08:15 | Outpatient (AMB) | payer OTHER, SELFPAY ==
--- NOTE | 2025-09-30 08:20 | MHC.OFFVIS ---
Vital Signs 09/30/25 08:21 Height 5 ft 9 in Weight 290 lb BMI 42.8 Intake Visit Reasons: 30 mins appt to do left hallux, f/u right PNA Intake Note: Christa is a 43 year old female who presents today for a follow up on her right partial nail avulsion. Pt states the recovery has gone well and she has concerns in regards to the appearance of her right hallux. Today we plan on performing a nail avulsion of the left hallux and patient is aware. Allergies nectarine Allergy (Severe, Verified 09/30/25 08:21) Swelling javi's vodka Allergy (Uncoded 09/11/25 13:22) Hives Medication List - Last Reconciled 09/30/25 by Maritza Nichols DPM albuterol sulfate 90 mcg/actuation 2 inhalations inhalation Q6H PRN baclofen 10 mg PO BID PRN betamethasone dipropionate 0.05% 1 appl topical DAILY PRN desog-e.estradiol/e.estradiol 0.15-0.02 mgx21 /0.01 mg x 5 1 tab PO DAILY diclofenac sodium 50 mg PO Q12H PRN HPI Comments Details: The patient is a 25-year-old female presenting for follow-up status post right hallux partial nail avulsion with matrixectomy to the lateral border in his planning for a left hallux partial nail avulsion with matrixectomy to the lateral border. Patient states the dermatitis to the right foot has significantly improved once she started using the betamethasone cream. She denies any current pain to the right hallux. Patient states she experiences pain to the lateral border of the left hallux at the area of the ingrown toenail. She denies any purulence. She denies any drainage. She denies any other pedal concerns. Denies any new pedal injuries. [facility] Medical History (Updated 09/30/25 @ 08:34 by Maritza Nichols DPM) Pain of left great toe Dermatitis of right foot Pain in toes of both feet Ingrowing nail Cellulitis of great toe of left foot Cellulitis of great toe of right foot LLL pneumonia Persistent disorder of initiating or maintaining wakefulness IGTN (ingrowing toe nail) Surgical History H/O oral surgery Family History Mother Mental disorder HTN (hypertension) Diabetes Thyroid disorder Psychiatric disorder Father Asthma Maternal Grandfather HTN (hypertension) Diabetes Other Substance abuse Social History Housing: House Housing Other:: duplex Alcohol intake: current Alcohol intake frequency: holidays/special occasions only Patient Tobacco Use Status: Current someday Tobacco user Years Smoked: Less then a year, smokes occasionally e-Cigarette/Vaping Use: Never Used Second Hand Smoke Exposure: No Substance Use Type: Marijuana service: No Current occupational status: employed Current occupation: [employer], [employer] Current occupational exposures/hazards: No Cognitive needs: No Hearing needs: No Vision needs: No Female Reproductive History Menstrual Age of Menarche: 12 Review of Systems Const Details: - Integumentary: Reports healing to the right hallux PNA site. Resolution of the erythema to the dorsum of the right foot. Ingrown toenail to the lateral border of the left hallux. All systems reviewed & are unremarkable except as noted in HPI and below Physical Exam Vital Signs: BMI result Body Mass Index 42.8 Extrem Other: B/L LE Focused Physical Exam: Derm: Resolved Erythema noted to the dorsum of the right foot in the area of the webspace between 1st and 2nd metatarsals at previous injection site, noted mild hyperpigmentation to the area, improved from last visit. No raised lesions or edema noted. Healing lateral border of the right hallux at the partial nail avulsion with matrixectomy site with no active drainage. No purulence or bleeding noted. Increased incurvation noted to the lateral nail border of left hallucal nail consistent with an ingrown toenails. No ingrowing noted to the left 2nd toenail. No ecchymosis or discoloration noted. No purulence, drainage, or bleeding noted. Vasc: DP/PT pulses palpable. CFT < 3 secs. Temp gradient warm to warm. Pedal hair present. No varicosities noted. Mild edema noted to the halluces in the area of the ingrown nails. Neuro: Protective sensations grossly intact. MSK: Pain on palpation to the lateral hallucal nail border at the site of the ingrown toenail. No pain on to the area of the injection sites are dorsum of the right foot. No sensitivity noted to the lateral border of the right hallucal nail. No crepitus or fluctuance noted. ROM of the forefoot, hindfoot, and ankles WNL. Nonantalgic gait unassisted noted. Office Procedures AMB Debridement/Avulsion Podia Details: Procedure: Left hallux lateral border partial nail avulsion with matrixectomy Cleansed the left hallux with an alcohol swab and injected 15 cc of 1% lidocaine plain in a hallux block fashion. Next, a tourniquet was applied and the left hallux/nail was cleansed with betadine. Next, attention was drawn to the lateral border of the left hallucal nail where a freer was used to free up the nail from the nail bed. Next, an greenlandic anvil was used to trim the lateral nail border and a hemostat was used to remove the offending nail border. A currette was used to inspect and remove any remaining spicules. Next, 4 phenol swabs were applied to the lateral nail border for 30 seconds each. An alcohol swab was applied to the lateral border and once dried, triple antibiotic ointment, a bandaid, 2x2 gauze, and coban was applied to the right hallux. After care instructions were provided. 28446 Nail matrixectomy Procedure code (CPT) selection complete Office Meds lidocaine HCl 10 mg/mL (1 %) injection solution Performing Provider: Maritza Nichols DPM Performing Location[place] [facility] Administered by: Maritza Nichols DPM on 09/30/25 08:54 Dose Route Admin Location Dispensed Lot Number Expiration Date [facility] 15 mL subcut 15 mL [id number] Total Dispensed Waste 15 mL 0 % Triple Antibiotic 3.5 mg-400 unit-5,000 unit topical ointment packet Performing Provider: Maritza Nichols DPM Performing Location: [facility] Administered by: Maritza Nichols DPM on 09/30/25 08:54 Dose Route Admin Location Dispensed Lot Number Expiration Date [facility] 1 appl topical 1 appl [id number] [place] povidone-iodine 10 % topical swab Performing Provider: Maritza Nichols DPM Performing Location: [facility] Administered by: Maritza Nichols DPM on 09/30/25 08:54 Dose Route Admin Location Dispensed Lot Number Expiration Date [facility] 2 appl topical 2 appl [id number] [employer]. ethyl chloride 100 % topical spray Performing Provider: Maritza Nichols DPM Performing Location: [facility] Administered by: Maritza Nichols DPM on 09/30/25 08:54 Dose Route Admin Location Dispensed Lot Number Expiration Date [facility] 1 appl topical 116 mL [id number] [place] phenol 89 % topical swab Performing Provider: Maritza Nichols DPM Performing Location: [facility] Administered by: Maritza Nichols DPM on 09/30/25 08:54 Dose Route Admin Location Dispensed Lot Number Expiration Date [facility] 4 appl topical 4 appl [id number] [facility] Assessment & Plan Assessment & Plan (1) Cellulitis of great toe of left foot: Code(s): L03.032 - Cellulitis of left toe Category: Medical (2) Ingrowing nail: Code(s): L60.0 - Ingrowing nail Category: Medical (3) Pain of left great toe: Code(s): M79.675 - Pain in left toe(s) Category: Medical (4) Cellulitis of great toe of right foot: Code(s): L03.031 - Cellulitis of right toe Category: Medical (5) Pain in toes of both feet: Code(s): M79.674 - Pain in right toe(s); M79.675 - Pain in left toe(s) Category: Medical (6) Dermatitis of right foot: Code(s): L30.9 - Dermatitis, unspecified Category: Medical Plan Patient was informed and verbally consented to the use of an ambient scribe for clinic note documentation during this visit. I discussed with the patient the use of lidocaine for the procedure on the left foot and will monitor for dermatitis reaction as previously experienced. We agreed to monitor closely for any signs of reaction and to proceed with caution. I also explained the expected healing process for the left hallux matrixectomy including the presence of drainage and scabbing. I discussed with the patient the likely diagnosis of dermatitis to the injection site and the management plan, including the use of betamethasone cream to alleviate symptoms. - Conducted a partial nail avulsion with chemical matrixectomy to the left hallux lateral nail border with no incidence. - Advised patient to keep the bandage on for 24 hours and may start after care protocol after the 24 hours. - Advised patient to wear supportive shoe gear and to avoid tight fitting shoes. - Advised patient to avoid barefoot walking. - Patient is to monitor for signs of infection and was advised to call our office if symptoms worsen. - Continue using betamethasone cream, to be applied to the site of dermatitis. - Monitor for any further reactions or signs of infection. RTC in 2 weeks. Orders: Orders AMB Debridement/Avulsion Podiatry Today L03.032 - Cellulitis of left toe, L60.0 - Ingrowing nail, M79.675 - Pain in left toe(s) Coding Level of Care Code Est Pt Level 4 (30493) Diagnoses Cellulitis of great toe of left foot L03.032 Ingrowing nail L60.0 Pain of left great toe M79.675 Cellulitis of great toe of right foot L03.031 Pain in toes of both feet M79.674; M79.675 Dermatitis of right foot L30.9 CPT Codes Skin Debridement - CPT: 77717 Nail matrixectomy ([id number]) Time Spent (min) 50 Comment 20 mins for procedure
[2025-09-30 08:21] VITALS: BMI 42.8
== END 2025-09-30 09:20 | disposition home or self-care (01) ==
LOC: HO.HPODS 08:16
PROVIDERS: PCP Nurse Practitioner Family; Visit Provider Student in an Organized Health Care Education/Training Program
DX: L03.032 Cellulitis of left toe (principal); L60.0 Ingrowing nail; M79.675 Pain in left toe(s); L03.031 Cellulitis of right toe; M79.674 Pain in right toe(s); L30.9 Dermatitis, unspecified
CPT/HCPCS: 11750

== ENCOUNTER → 2025-09-30 08:15 | Outpatient (BNVA) | payer OTHER, SELFPAY | PROVIDERS: PCP Nurse Practitioner Family; Visit Provider Student in an Organized Health Care Education/Training Program | DX: L03.032 Cellulitis of left toe (principal); L60.0 Ingrowing nail; M79.675 Pain in left toe(s); L03.031 Cellulitis of right toe; M79.674 Pain in right toe(s); L30.9 Dermatitis, unspecified | CPT/HCPCS: J2003 ==

== ENCOUNTER 2025-10-14 08:43 | Outpatient (AMB) | payer OTHER, SELFPAY ==
[2025-10-14 08:51] VITALS: BMI 42.8
--- NOTE | 2025-10-14 08:51 | A.OFFVIS_ITS ---
Vital Signs 10/14/25 08:51 Height 5 ft 9 in Weight 290 lb BMI 42.8 Intake Visit Reasons: f/u left hallux PNA with matrixectomy Intake Note: Christa is a 25 year old female who present s today for a follow up on her left partial nail avulsion with matrixectomy. At her last visit Patient reports she experiences slight soreness in her left hallux and she had noticed some slight leakage starting about 3 days ago. Allergies nectarine Allergy (Severe, Verified 10/14/25 08:52) Swelling javi's vodka Allergy (Uncoded 09/11/25 13:22) Hives HPI Comments Details: The patient is a 25 year old individual presenting for a follow-up status post bilateral hallux partial nail avulsions with matrixectomy to the lateral borders. The patient reports that the left foot has been more painful during the healing process compared to the right. Persistent drainage from the left hallux PNA site has been noted on band-aids, and the patient observed a substance coming from the area a few days ago after soaking the foot. Regarding the right foot, states the dermatitis has continued to significantly improve and no longer notices discoloration. Patient states she notices a leather like texture to the area. She also notes some flaking, which is believed to be residue from the betamethasone cream. The patient denies any allergic reaction to lidocaine to the left foot after procedure. She denies any other pedal concerns. Denies any new pedal injuries. [facility] Medical History (Updated 09/30/25 @ 08:34 by Maritza Nichols DPM) Pain of left great toe Dermatitis of right foot Pain in toes of both feet Ingrowing nail Cellulitis of great toe of left foot Cellulitis of great toe of right foot LLL pneumonia Persistent disorder of initiating or maintaining wakefulness IGTN (ingrowing toe nail) Surgical History H/O oral surgery Family History Mother Mental disorder HTN (hypertension) Diabetes Thyroid disorder Psychiatric disorder Father Asthma Maternal Grandfather HTN (hypertension) Diabetes Other Substance abuse Social History Housing: House Housing Other:: duplex Alcohol intake: current Alcohol intake frequency: holidays/special occasions only Patient Tobacco Use Status: Current someday Tobacco user Years Smoked: Less then a year, smokes occasionally e-Cigarette/Vaping Use: Never Used Second Hand Smoke Exposure: No Substance Use Type: Marijuana service: No Current occupational status: employed Current occupation: [employer] Current occupational exposures/hazards: No Cognitive needs: No Hearing needs: No Vision needs: No Female Reproductive History Menstrual Age of Menarche: 12 Review of Systems Const Details: - Integumentary: Reports healing to the B/L hallux PNA site, but reports drainage to the left hallux PNA site. Resolution of the dermatitis to the dorsum of the right foot, but reports a leathery feeling of the skin with flaking. All systems reviewed & are unremarkable except as noted in HPI and below Physical Exam Vital Signs: BMI result Body Mass Index 42.8 Extrem Other: B/L LE Focused Physical Exam: Derm: Resolved Erythema noted to the dorsum of the right foot in the area of the webspace between 1st and 2nd metatarsals at previous injection site, resolved hyperpigmentation to the area, improved from last visit. Slightly rough texture noted to the area of the dermatitis. No raised lesions or edema noted. Heel lateral border of the right hallux at the partial nail avulsion with matrixectomy site with no active drainage. Healing lateral border of the left hallux at the partial nail avulsion with matrixectomy site with mild serous drainage. No purulence or bleeding noted. No ingrowing noted to the left 2nd toenail. Remaining toenails within normal limits. No ecchymosis or discoloration noted. Vasc: DP/PT pulses palpable. CFT < 3 secs. Temp gradient warm to warm. Pedal hair present. No varicosities noted. Mild edema noted to the halluces in the area of the ingrown nails. Neuro: Protective sensations grossly intact. MSK: No Pain on palpation to B/L hallux lateral nail borders at the site of the previous ingrown toenails. No pain on to the area of the injection sites are dorsum of the right foot. No crepitus or fluctuance noted. ROM of the forefoot, hindfoot, and ankles WNL. Nonantalgic gait unassisted noted. Office Procedures AMB Debridement/Avulsion Podia Details: Cleansed left hallux PNA site with sterile saline and mechanically debrided the site. Obtained a wound culture to be sent to microbiology. Applied Betadine and a Band-Aid to the area. 39561-Ktasszwfsqm of active wound <20cm Procedure code (CPT) selection complete Office Meds povidone-iodine 10 % topical swab Performing Provider: Maritza Nichols DPM [facility] Administered by: Maritza Nichols DPM on 10/16/25 10:16 Dose Route Admin Location Dispensed Lot Number Expiration Date [facility] Hour[facility] Manager 1 appl topical 1 appl [id number] [employer] [place]. Results Reviewed Results Reviewed: Obtained a left hallux wound culture to be sent for microbiology. Assessment & Plan Assessment & Plan (1) Cellulitis of great toe of left foot: Code(s): L03.032 - Cellulitis of left toe Category: Medical (2) Ingrowing nail: Code(s): L60.0 - Ingrowing nail Category: Medical (3) Pain of left great toe: Code(s): M79.675 - Pain in left toe(s) Category: Medical (4) Cellulitis of great toe of right foot: Code(s): L03.031 - Cellulitis of right toe Category: Medical (5) Pain in toes of both feet: Code(s): M79.674 - Pain in right toe(s); M79.675 - Pain in left toe(s) Category: Medical (6) Dermatitis of right foot: Code(s): L30.9 - Dermatitis, unspecified Category: Medical Plan Patient was informed and verbally consented to the use of an ambient scribe for clinic note documentation during this visit. I discussed the persistent drainage from the patient's left hallux PNA site. I explained that a wound culture would be taken to identify any potential pathogens. I prescribed Keflex, a broad-spectrum antibiotic, to begin treatment empirically while awaiting culture results. I advised the patient to discontinue Neosporin and instead use iodine or allow the wound to air dry to promote healing and scab formation. I informed the patient that nausea is a possible side effect of the antibiotic and provided guidance on adjusting the dosing if needed, while emphasizing the importance of completing the full course. We scheduled a follow-up appointment in 10 days to assess progress and review the lab results. - A wound culture of the left hallux was obtained to assess for infection. - Prescribed Keflex to be taken twice daily for one week as a broad-spectrum antibiotic. - The patient is to discontinue using Neosporin on the wound. - Instructed the patient on wound care: apply iodine to keep it dry or let it air dry and cover with a band-aid. - The patient may continue to soak the foot in Epsom salt and warm water. - Advised patient to wear supportive shoe gear and to avoid tight fitting shoes. - Advised patient to avoid barefoot walking. - Patient is to monitor for signs of infection and was advised to call our office if symptoms worsen. - Continue using betamethasone cream, to be applied to the site of dermatitis. RTC in 10 days. Orders: Orders Routine Culture w Gram Stain 10/14/25 L03.032 - Cellulitis of left toe, L60.0 - Ingrowing nail, M79.675 - Pain in left toe(s) AMB Debridement/Avulsion Podiatry 10/14/25 L03.031 - Cellulitis of right toe, L03.032 - Cellulitis of left toe, L30.9 - Dermatitis, unspecified, L60.0 - Ingrowing nail, M79.674 - Pain in right toe(s), M79.675 - Pain in left toe(s) Medications: New cephalexin 500 mg PO BID 10 caps 0RF L03.032 - Cellulitis of left toe, L60.0 - Ingrowing nail, M79.675 - Pain in left toe(s) Coding Level of Care Code Est Pt Level 4 (93314) Diagnoses Cellulitis of great toe of left foot L03.032 Ingrowing nail L60.0 Pain of left great toe M79.675 Cellulitis of great toe of right foot L03.031 Pain in toes of both feet M79.674; M79.675 Dermatitis of right foot L30.9 CPT Codes Skin Debridement - CPT: 79488-Bsudurczyrg of active wound <20cm ([id number]) Time Spent (min) 35 Comment 5 mins for procedure
--- OUTSIDE RECORDS SUMMARY | 2025-10-14 08:52 | XMS_ITS | Clinical Summary ---
Author Organization [facility] Address [address] [place] [id number] Phone Care Team Providers Care Home Supervisor Name Role Phone Karrie Dunham MD Primary [...] [facility] Pt/ in 2009 [id number], repeat in 2009 [id number]. Referred to [facility] 2009 and 2010.. [...] of *Heart Disease, Family history of *Sudden /HI under 55, No family history of Strabismus, [...] patient's age to complete this topic Insurance [facility] [employer] Care Teams Home Supervisor Relationship Specialty Start Date End Date Karrie Dunham MD PCP - General 06/23/17
--- OUTSIDE RECORDS SUMMARY | 2025-10-14 08:52 | XMS_ITS | Encounter Summary ---
Author Organization [facility] Address [address] [place] [phone] Phone Care Team Providers Care Medical Record Specialist Name Role Phone Karrie Dunham MD Primary Care Provider Unava ilable Encounter Details Date Type Department Care Team (Late st Contact Info) Description 06/07/2016 Documentation [facility] Family Medicine [address] [place] [address] Family Medicine, Physician [address] [place] [address] Social History Tobacco Use Types Packs/Day Years [...] filedocumented in this encounter Care Teams Medical Record Specialist Relationship Specialty Start Date End Date Karrie Dunham MD PCP - General 06/23/17 documented as of this encounter
--- OUTSIDE RECORDS SUMMARY | 2025-10-14 08:52 | XMS_ITS | Encounter Summary ---
Author Organization [facility] Address [address] [place] [phone] Phone Care Team Providers Care Pantograph I Engraver Name Role Phone Karrie Dunham MD Primary Care Provider Unava ilable Encounter Details Date Type Department Care Team (Late st Contact Info) Description 06/29/2017 Conversion Encounter [facility] - [address] [address] Social History Tobacco Use Types Packs/Day Years [...] on filedocumented in this encounter Care Teams Pantograph I Engraver Relationship Specialty Start Date End Date Karrie Dunham MD PCP - General 06/23/17 documented as of this encounter
--- OUTSIDE RECORDS SUMMARY | 2025-10-14 08:52 | XMS_ITS | Encounter Summary ---
Author Organization [facility] Address [address] [place] [phone] Phone Care Team Providers Care Color Specialist Name Role Phone Karrie Dunham MD Primary Care Provider Unava ilable Encounter Details Date Type Department Care Team (Late st Contact Info) Description 04/06/[address] [facility] Family Medicine [address] [place], [place] [id number] Family Medicine, Physician [address] [place] [address] Social History Tobacco Use Types Packs/Day Years [...] on filedocumented in this encounter Care Teams Color Specialist Relationship Specialty Start Date End Date Karrie Dunham MD PCP - General 06/23/17 documented as of this encounter
== END 2025-10-14 09:03 | disposition home or self-care (01) ==
LOC: HO.HPODS 08:43
PROVIDERS: PCP Nurse Practitioner Family; Visit Provider Student in an Organized Health Care Education/Training Program
DX: L03.031 Cellulitis of right toe (principal); L03.032 Cellulitis of left toe; M79.674 Pain in right toe(s); M79.675 Pain in left toe(s); L60.0 Ingrowing nail; L30.9 Dermatitis, unspecified
CPT/HCPCS: 97597; 99214

== ENCOUNTER 2025-10-14 08:43 | Outpatient (REF) | payer OTHER, SELFPAY | END 2025-10-14 08:44 | disposition home or self-care (01) | LOC: HO.LNP 08:43 | PROVIDERS: PCP Nurse Practitioner Family; Visit Provider Student in an Organized Health Care Education/Training Program | DX: L03.032 Cellulitis of left toe (principal); L60.0 Ingrowing nail; L03.031 Cellulitis of right toe; L30.9 Dermatitis, unspecified | CPT/HCPCS: 87070; 87077; 87205 ==